=== PATIENT | female | born 1955 | race American Indian/Alaskan Native ===

== ENCOUNTER 2017-01-24 10:40 | Outpatient (CLI) | payer BC ==
--- NOTE | 2017-01-24 12:48 | Mammography Report ---
BILATERAL DIGITAL SCREENING MAMMOGRAM with CAD: 01/24/17 10:40:00 CLINICAL: Routine screening. COMPARISON:10/25/15 FINDINGS: The breasts are almost entirely fatty. No mass, architectural distortion or suspicious calcifications. IMPRESSION: No mammographic evidence of malignancy. BI-RADS CATEGORY: 1 - - Negative RECOMMENDATION: Routine mammographic screening in one year. COMMENT: Patient follow-up letters are generated by our [employer] application.
== END 2017-01-24 10:41 | disposition home or self-care (01) ==
LOC: MAMMO 10:40
PROVIDERS: ATTEND Family Medicine
DX: Z12.31 Encounter for screening mammogram for malignant neoplasm of breast (principal); I10 Essential (primary) hypertension; E78.00 Pure hypercholesterolemia, unspecified; J45.909 Unspecified asthma, uncomplicated; E03.9 Hypothyroidism, unspecified
CPT/HCPCS: 77067; G0202

== ENCOUNTER 2017-05-10 12:30 | Outpatient (CLI) | payer BC | END 2017-05-10 12:31 | disposition home or self-care (01) | LOC: VAS 12:30 | PROVIDERS: ATTEND Podiatrist Foot & Ankle Surgery | DX: M79.661 Pain in right lower leg (principal); M79.662 Pain in left lower leg; M79.89 Other specified soft tissue disorders; I10 Essential (primary) hypertension; E78.00 Pure hypercholesterolemia, unspecified; J45.909 Unspecified asthma, uncomplicated; K21.9 Gastro-esophageal reflux disease without esophagitis; E03.9 Hypothyroidism, unspecified ==

== ENCOUNTER 2018-01-30 10:49 | Outpatient (CLI) | payer BC ==
--- NOTE | 2018-01-30 15:57 | Magnetic Resonance Report ---
MRI BRAIN WITHOUT CONTRAST: 01/30/18 10:49:00 CLINICAL: Seizures. TECHNIQUE: Axial diffusion, T1, T2, gradient echo T2*, coronal and axial FLAIR and sagittal T1 sequences on a 1.5 Toya magnet. FINDINGS: The tonsil and temporal lobe sulci are slightly prominent for age. The ventricles are normal size. No restricted diffusion. Mild medial left temporal lobe parasagittal encephalomalacia with mild gliosis. No other abnormal signal. No mass or mass effect. No hemorrhage, edema or extra-axial collection. Normal pituitary and optic chiasm. The brainstem and cerebellum are normal. Intact vascular flow voids. Normal sinuses. The orbits, and soft tissues are normal. Normal calvarium and skull base. IMPRESSION: 1. Small chronic left LOUIE infarct. 2. No evidence of acute/subacute infarct or hemorrhage. 3. No evidence of mass. 4. Mild frontotemporal cortical atrophy.
== END 2018-01-30 10:50 | disposition home or self-care (01) ==
LOC: MRI 10:49
PROVIDERS: ATTEND Psychiatry & Neurology Neurology
DX: I63.522 Cerebral infarction due to unspecified occlusion or stenosis of left anterior cerebral artery (principal); G31.01 Pick's disease; F02.80 Dementia in other diseases classified elsewhere, unspecified severity, without behavioral disturbance, psychotic disturbance, mood disturbance, and anxiety; E78.00 Pure hypercholesterolemia, unspecified; I10 Essential (primary) hypertension; J45.909 Unspecified asthma, uncomplicated; K21.9 Gastro-esophageal reflux disease without esophagitis; M19.90 Unspecified osteoarthritis, unspecified site; Z90.710 Acquired absence of both cervix and uterus
CPT/HCPCS: 70551

== ENCOUNTER 2018-12-15 10:24 | Outpatient (CLI) | payer BC, MEDICARE ==
--- NOTE | 2018-12-15 14:18 | Magnetic Resonance Report ---
MRI BRAIN 12/15/2018 INDICATION / CLINICAL INFORMATION: MAIN: Code G45.9: Transient cerebral ischemic attack, unspecified./ severe headaches. TECHNIQUE: Multiplanar, multisequence MR images of the brain were obtained. COMPARISON: 01/30/2018 FINDINGS: BRAIN / INTRACRANIAL CONTENTS: Unenhanced and enhanced MR images of the brain were obtained and erich red to the prior exam from 09/29/2018. Again seen is the focal area of encephalomalacia involving a portion of the medial aspect of the left frontal lobe, consistent with old ischemic injury. There is no evidence of acute ischemic injury. There is no evidence of hemorrhage. Ventricles and sulci are within normal limits of size and shape for a patient of this age. On the postcontrast images, there is evidence of a enhancing extra-axial lesion over the anterior rig ht frontal lobe, consistent with meningioma. There appears to be a septation of the dura overlying th is 1 cm enhancing nodule. This lesion was present at the time of the prior exam from 01/31/2020. No other areas of abnormal contrast enhancement are present. There are no abnormal extra-axial fluid collections EXTRACRANIAL: Unremarkable CRANIOCERVICAL JUNCTION: No significant abnormality. VASCULAR FLOW-VOIDS: No significant abnormality. IMPRESSION: No acute abnormality. Signer Name: Jeff Ferreira MD Signed: 12/15/2018 2:13 PM Workstation Name: [id number]
== END 2018-12-15 10:25 | disposition home or self-care (01) ==
LOC: MRI 10:24
PROVIDERS: ATTEND Specialist
DX: G45.9 Transient cerebral ischemic attack, unspecified (principal); G93.41 Metabolic encephalopathy; E78.00 Pure hypercholesterolemia, unspecified; I10 Essential (primary) hypertension; J45.909 Unspecified asthma, uncomplicated; K21.9 Gastro-esophageal reflux disease without esophagitis; Z90.710 Acquired absence of both cervix and uterus
CPT/HCPCS: 70553; A9577

== ENCOUNTER 2019-02-08 01:23 | Emergency (ER) | payer MEDICARE ==
[2019-02-08 02:15] LABS: Basophils # (Auto) 0.2 K/mm3 (0.0-0.1); Basophils % (Auto) 2.2 % (0.0-1.8); Eosinophils # (Auto) 0.1 K/mm3 (0.0-0.4); Eosinophils % (Auto) 1.4 % (0.0-4.3); Hematocrit 43.3 % (30.3-42.9); Hemoglobin 13.9 gm/dl (10.1-14.3); Lymphocytes # (Auto) 2.2 K/mm3 (1.2-5.4); Lymphocytes % (Auto) 27.4 % (13.4-35.0); Mean Corpuscular HGB Conc 32 % (30-34); Mean Corpuscular Volume 84 fl (79-97); Monocytes # (Auto) 0.5 K/mm3 (0.0-0.8); Monocytes % (Auto) 6.1 % (0.0-7.3); Platelet Count 331 K/mm3 (140-440); Red Blood Count 5.17 M/mm3 (3.65-5.03); Red Cell Distribution Width 15.3 % (13.2-15.2)
[2019-02-08 02:20] LABS: Bilirubin,Urine NEG (Negative); Blood,Urine NEG (Negative); Color,Urine Yellow (Yellow); Protein,Urine <15 mg/dL mg/dL (Negative); Urobilinogen,Urine < 2.0 mg/dL (<2.0)
[2019-02-08 02:38] LABS: Alanine Aminotransferase 15 units/L (7-56); BUN/Creatinine Ratio 9; Blood Urea Nitrogen 7 mg/dL (7-17); Calcium 10.2 mg/dL (8.4-10.2); Hemolysis Index 5
[2019-02-08] MEDS ORDERED: ONDANSETRON 4 MG/2 ML INJ IV ONE (03:09)
[2019-02-08] MEDS ORDERED: fentaNYL 100 MCG/2 ML INJ IV ONE ×2 (03:09→04:50)
--- NOTE | 2019-02-08 03:15 | Emergency Department Report ---
HPI - General Chief Complaint: Abdominal Pain Time Seen by Provider: 02/08/19 02:56 - HPI HPI: Room 24 The patient is a 63-year-old female presenting with a chief complaint of headache and right flank pain. 5 days ago with pain in the right flank that was constant and describes as a sharp and dull pressure. Patient states for the past 2-3 days she's also had midepigastric abdominal pain and intermittent headache. Patient denies dysuria or hematuria. Patient missed some loose stool for the past 2-3 days. She states her right flank pain feels similar to an episode she had several years ago related to renal colic. Patient denies history of fever. Patient admits to nausea last night but denies vomiting. Patient currently gives her pain score of 6/10. Patient denies recent antibiotic use Location: [See above] Duration: [See above] Quality: [See above] Severity: [See above] Timing: [See above] Context: [See above] Modifying factors: [See above] Associated signs and symptoms: [see above] ED Past Medical Hx - Past Medical History Previous Medical History?: Yes Hx Hypertension: Yes Hx CVA: Yes Hx Diabetes: Yes Hx GERD: Yes Hx Sickle Cell Disease: (SICKLE CELL TRAIT ONLY) Hx Arthritis: Yes Hx Kidney Stones: Yes Hx Asthma: Yes (MILD/LAST TIME INHALER USED >25 YRS) Additional medical history: Diverticulitis, Hyperthyroid - Surgical History Past Surgical History?: Yes Hx Breast Surgery: Yes (BILATERAL BREAST REDUCTION) Additional Surgical History: Hysterectomy, Lasic procedure on eyes. . SURGERY FOR ENDOMETRIOSIS. CATARACT REMOVED BOTH EYES. Bunionectomy. Left knee surgery 2. LEFT ANKLE SURGERY X 2 - Family History Family history: no significant - Social History Smoking Status: Never Smoker Substance Use Type: Alcohol (occasional) - Medications Home Medications: Home Medications Medication Instructions Recorded Confirmed Last Taken Type Oxycodone HCl/Acetaminophen 1 each PO Q4-6H PRN #20 tablet 11/29/13 09/22/14 05/12/14 Rx [Percocet 10/325 mg] Prednisone [predniSONE 10 mg 10 mg PO .TAPER #1 tab.ds.pk 11/29/13 09/28/14 09/28/14 06:30 Rx (6-Day Pack, 21 Tabs)] Alendronate Sodium [Fosamax] 70 mg PO QWEEK 09/22/14 09/28/14 09/19/14 09:00 History Aspirin EC [Halfprin EC] 81 mg PO QDAY 09/22/14 09/22/14 09/21/14 History Cholecalciferol (Vitamin D3) 5,000 unit PO DAILY 09/22/14 09/28/14 Unknown History [Vitamin D3] Cholecalciferol (Vitamin D3) 50,000 unit PO 2XW 09/22/14 09/28/14 09/21/14 09:00 History [Vitamin D3] Ferrous Sulfate [Iron Supplement 325 mg PO DAILY 09/22/14 09/28/14 09/21/14 09:00 History 325 Mg tab] Gabapentin 300 mg PO TID 09/22/14 09/28/14 09/28/14 06:30 History Glucosam/Adner-Msm1/C/Neftali/Bosw 1 each PO DAILY 09/22/14 09/28/14 09/21/14 09:00 History [Osteo Bi-Flex Caplet] Levocetirizine Dihydrochloride 5 mg PO DAILY 09/22/14 09/28/14 09/27/14 19:30 History [Xyzal] Mirtazapine [Remeron] 30 mg PO DAILY 09/22/14 09/28/14 09/27/14 19:30 History Mometasone Furoate [Nasonex] 2 spray NS QDAY 09/22/14 09/28/14 09/27/14 09:00 History Multivitamin with Folic Acid [One 400 mcg PO DAILY 09/22/14 09/28/14 09/21/14 09:00 History Daily Multivitamin Tablet] Pantoprazole [Protonix TAB] 40 mg PO QDAY 09/22/14 09/28/14 09/21/14 09:00 History Pravastatin [Pravachol] 40 mg PO QHS 09/22/14 09/28/14 09/21/14 09:00 History Verapamil ER [Calan SR] 240 mg PO BIDWM 09/22/14 09/28/14 09/28/14 06:30 History Vitamin E Mixed [Vitamin E] 400 unit PO DAILY 09/22/14 09/28/14 09/21/14 09:00 History Ketorolac [Toradol] 10 mg PO Q6H PRN #20 tablet 04/01/16 Unknown Rx Promethazine [Phenergan TAB] 25 mg PO Q6HR PRN #20 tab 04/01/16 Unknown Rx Promethazine [Phenergan] 25 mg IA Q6HR PRN #5 supp.rect 04/01/16 Unknown Rx Sulfamethoxazole/Trimethoprim 1 each PO BID #14 tablet 04/01/16 Unknown Rx [Bactrim DS TAB] oxyCODONE /ACETAMINOPHEN [Percocet 1 - 2 tab PO Q6HR PRN #20 tablet 04/01/16 Unknown Rx 5/325] Ondansetron [Zofran ODT TAB] 8 mg PO Q8HR #20 tab.rapdis 02/08/19 Unknown Rx oxyCODONE /ACETAMINOPHEN [Percocet 1 - 2 tab PO Q6HR PRN #14 tablet 02/08/19 Unknown Rx 5/325] ED Review of Systems ROS: Stated complaint: ABD/BACK PAIN Other details as noted in HPI Constitutional: denies: fever Eyes: denies: eye pain ENT: denies: throat pain Respiratory: no symptoms reported Cardiovascular: denies: chest pain Endocrine: no symptoms reported Gastrointestinal: abdominal pain, nausea, diarrhea. denies: vomiting Genitourinary: denies: dysuria, hematuria Musculoskeletal: back pain Neurological: headache Physical Exam - Physical Exam Vital Signs: Vital Signs 02/08/19 02/08/19 01:30 02:45 Temperature 97.8 F Pulse Rate 86 90 Respiratory 18 16 Rate Blood Pressure 158/107 Blood Pressure 155/94 [Right] O2 Sat by Pulse 95 94 Oximetry Physical Exam: GENERAL: The patient is well-developed well-nourished female lying on stretcher not appearing to be in acute distress. [] HEENT: Normocephalic. Atraumatic. Extraocular motions are intact. Patient has moist mucous membranes. NECK: Supple. Midline CHEST/LUNGS: Clear to auscultation. There is no respiratory distress noted. HEART/CARDIOVASCULAR: Regular. There is no tachycardia. There is no gallop rub or murmur. ABDOMEN: Abdomen is soft, with mild discomfort to palpation in the midepigastric and bilateral upper quadrants. There is no rebound or guarding. Patient has normal bowel sounds. There is no abdominal distention. SKIN: There is no rash. There is no edema. There is no diaphoresis. NEURO: The patient is awake, alert, and oriented. The patient is cooperative. The patient has no focal neurologic deficits. The patient has normal speech. Cranial nerves II through XII grossly intact, no drift MUSCULOSKELETAL: There is right-sided CVA tenderness. There is no evidence of acute injury. ED Course Vital Signs 02/08/19 02/08/19 01:30 02:45 Temperature 97.8 F Pulse Rate 86 90 Respiratory 18 16 Rate Blood Pressure 158/107 Blood Pressure 155/94 [Right] O2 Sat by Pulse 95 94 Oximetry - Reevaluation(s) Reevaluation #1: 02/08/19 05:53 Patient states she feels improved. Patient's lipase and CT scans were discussed with her. She was given the option of admission to the hospital should her pain be uncontrollable or trial as an outpatient with a prescription for antiemetics and analgesics. Patient will undergo trial as an outpatient GI follow-up. Patient advised to return to the emergency department if her pain is uncontrollable or she develops new symptoms. ED Medical Decision Making - Lab Data Result diagrams: 02/08/19 01:59 02/08/19 01:59 Laboratory Tests 02/08/19 02/08/19 02/08/19 01:59 01:59 Unknown WBC 8.0 RBC 5.17 H Hgb 13.9 Hct 43.3 H MCV 84 MCH 27 L MCHC 32 RDW 15.3 H Plt Count 331 Lymph % (Auto) 27.4 [place] % (Auto) 6.1 Eos % (Auto) 1.4 Baso % (Auto) 2.2 H Lymph # 2.2 [place] # 0.5 Eos # 0.1 Baso # 0.2 H Seg Neutrophils % 62.9 Seg Neutrophils # 5.1 Sodium 140 Potassium 4.1 Chloride 101.5 Carbon Dioxide 28 Anion Gap 15 BUN 7 Creatinine 0.8 Estimated GFR > 60 BUN/Creatinine Ratio 9 Glucose 95 Calcium 10.2 Total Bilirubin 0.20 AST 17 ALT 15 Alkaline Phosphatase 64 Total Protein 7.3 Albumin 4.0 Albumin/Globulin Ratio 1.2 Lipase Urine Color Yellow Urine Turbidity Clear Urine pH 7.0 Ur Specific [place] 1.012 Urine Protein <15 mg/dl Urine Glucose (UA) Neg Urine Ketones Neg Urine Blood Neg Urine Nitrite Neg Urine Bilirubin Neg Urine Urobilinogen < 2.0 Ur Leukocyte Esterase Tr Urine WBC (Auto) 5.0 Urine RBC (Auto) 3.0 U Epithel Cells (Auto) 1.0 02/08/19 Unknown WBC RBC Hgb Hct MCV MCH MCHC RDW Plt Count Lymph % (Auto) [place] % (Auto) Eos % (Auto) Baso % (Auto) Lymph # [place] # Eos # Baso # Seg Neutrophils % Seg Neutrophils # Sodium Potassium Chloride Carbon Dioxide Anion Gap BUN Creatinine Estimated GFR BUN/Creatinine Ratio Glucose Calcium Total Bilirubin AST ALT Alkaline Phosphatase Total Protein Albumin Albumin/Globulin Ratio Lipase 107 H Urine Color Urine Turbidity Urine pH Ur Specific [place] Urine Protein Urine Glucose (UA) Urine Ketones Urine Blood Urine Nitrite Urine Bilirubin Urine Urobilinogen Ur Leukocyte Esterase Urine WBC (Auto) Urine RBC (Auto) U Epithel Cells (Auto) - Radiology Data Radiology results: report reviewed (CT head, CT abdomen and pelvis), image reviewed (CT head, CT abdomen and pelvis) [place] [address] Cat Scan Report Signed Patient: LUIS ELAM MR#: [id number] : 1955 Acct:[id number] Age/Sex: 63 / F ADM Date: 02/08/19 Loc: ED Attending Dr: Ordering Physician: HAYES LEWIS MD Date of Service: 02/08/19 Procedure(s): CT head/brain wo con Accession Number(s): [id number] cc: HAYES LEWIS MD CT HEAD WITHOUT CONTRAST INDICATION / CLINICAL INFORMATION: headache. TECHNIQUE: All CT scans at this location are performed using CT dose reduction for ALARA by means of automated exposure control. COMPARISON: MRI dated 12/15/18 FINDINGS: HEMORRHAGE: None. EXTRA-AXIAL SPACES: Normal in size and morphology for the patient's age. Small right frontal meningioma is unchanged. VENTRICULAR SYSTEM: Normal in size and morphology for the patient's age. CEREBRAL PARENCHYMA: Left periventricular encephalomalacia is unchanged. No acute territorial infarct. MIDLINE SHIFT OR HERNIATION: None. CEREBELLUM / BRAINSTEM: No significant abnormality. ORBITS: Normal as visualized. SOFT TISSUES of HEAD: No significant abnormality. CALVARIUM: No significant abnormality. PARANASAL SINUSES / MASTOID AIR CELLS: Normal as visualized. ADDITIONAL FINDINGS: None. IMPRESSION: 1. No acute intracranial abnormality. 2. Small right frontal meningioma, unchanged. 2. No significant change since prior MRI. Signer Name: Valeria Leon MD Signed: 02/08/2019 5:04 AM Workstation Name: [id number] Transcribed By: DT Dictated By: Sai Leon MD Electronically Authenticated By: Sai Leon MD Signed Date/Time: 02/08/19 0504 DD/ 0500 TD/TT: [facility] [address] [place] [address] Cat Scan Report Signed Patient: LUIS ELAM MR#: [id number] : 1955 Acct:[id number] Age/Sex: 63 / F ADM Date: 02/08/19 Loc: ED Attending Dr: Ordering Physician: HAYES LEWIS MD Date of Service: 02/08/19 Procedure(s): CT abdomen pelvis wo/w con Accession Number(s): [id number] cc: HAYES LEWIS MD CT ABDOMEN AND PELVIS WITHOUT AND WITH CONTRAST INDICATION / CLINICAL INFORMATION: right flank pain, midepigastric pain. TECHNIQUE: Axial CT images were obtained through the abdomen and pelvis before and after 100 mL Omnipaque [address] scans at this location are performed using CT dose reduction for ALARA by means of automated exposure control. COMPARISON: None available. FINDINGS: LOWER CHEST: Linear bibasilar atelectasis. LIVER: Hepatic cyst is unchanged. No acute abnormality. GALLBLADDER: No significant abnormality. BILE D UCTS: No significant abnormality. PANCREAS: No significant abnormality. SPLEEN: No significant abnormality. ADRENALS: No significant abnormality. RIGHT KIDNEY and URETER: Renal cysts are unchanged. No stones. LEFT KIDNEY and URETER: Renal cysts appear unchanged. Nonobstructing stone in the lower pole. No ureteral stone or hydronephrosis. STOMACH and SMALL BOWEL: Small sliding-type hiatal hernia. No small bowel abnormality. COLON: Moderate diffuse colonic diverticulosis without acute inflammation. APPENDIX: Not visualized. PERITONEUM: No free fluid. No free air. No fluid collection. LYMPH NODES: No significant adenopathy. AORTA and ARTERIES: No significant abnormality. IVC and VEINS: No significant abnormality. URINARY BLADDER: No significant abnormality. REPRODUCTIVE ORGANS: Uterus is absent. No significant adnexal abnormality. ADDITIONAL FINDINGS: None. SKELETAL SYSTEM: No significant abnormality. IMPRESSION: 1. No inflammatory process or bowel obstruction. 2. Nonobstructing left renal stone. No ureteral stones or hydronephrosis. 3. Colonic diverticulosis without inflammation. Signer Name: Valeria Leon MD Signed: 02/08/2019 5:35 AM Workstation Name: [id number] Transcribed By: DT Dictated By: Sai Leon MD Electronically Authenticated By: Sai Leon MD Signed Date/Time: 02/08/19534 DD/ 9 TD/TT: - Differential Diagnosis renal colic, headache, AAA, aortic dissection, gastroenteritis, ICH Critical care attestation.: If time is entered above; I have spent that time in minutes in the direct care of this critically ill patient, excluding procedure time. ED Disposition Clinical Impression: Acute abdominal pain Disposition: - TO HOME OR SELFCARE Is pt being admited?: No Does the pt Need Aspirin: No Condition: Stable Instructions: Abdominal Pain (ED) Additional Instructions: Return to the emergency department should you develop worsening symptoms, inability to tolerate food or liquids, high fever or any other concerns Prescriptions: oxyCODONE /ACETAMINOPHEN [Percocet 5/325] 1 - 2 tab PO Q6HR PRN #14 tablet PRN Reason: Pain Ondansetron [Zofran ODT TAB] 8 mg PO Q8HR #20 tab.rapdis Referrals: PRIMARY CARE, [Primary Care Provider] - 3-5 Days OSWALD LAZCANO MD [Staff Physician] - 3-5 Days (Dr. Lazcano is a gastroent erologist. Please follow up with him for further evaluation) Time of Disposition: 06:05
--- NOTE | 2019-02-08 05:08 | Cat Scan Report ---
CT HEAD WITHOUT CONTRAST INDICATION / CLINICAL INFORMATION: headache. TECHNIQUE: All CT scans at this location are performed using CT dose reduction for ALARA by means of automated e xposure control. COMPARISON: MRI dated 12/15/18 FINDINGS: HEMORRHAGE: None. EXTRA-AXIAL SPACES: Normal in size and morphology for the patient's age. Small right frontal meningio ma is unchanged. VENTRICULAR SYSTEM: Normal in size and morphology for the patient's age. CEREBRAL PARENCHYMA: Left periventricular encephalomalacia is unchanged. No acute territorial infarct . MIDLINE SHIFT OR HERNIATION: None. CEREBELLUM / BRAINSTEM: No significant abnormality. ORBITS: Normal as visualized. SOFT TISSUES of HEAD: No significant abnormality. CALVARIUM: No significant abnormality. PARANASAL SINUSES / MASTOID AIR CELLS: Normal as visualized. ADDITIONAL FINDINGS: None. IMPRESSION: 1. No acute intracranial abnormality. 2. Small right frontal meningioma, unchanged. 2. No significant change since prior MRI. Signer Name: Valeria Leon MD Signed: 02/08/2019 5:04 AM Workstation Name: [id number]
--- NOTE | 2019-02-08 05:40 | Cat Scan Report ---
CT ABDOMEN AND PELVIS WITHOUT AND WITH CONTRAST INDICATION / CLINICAL INFORMATION: right flank pain, midepigastric pain. TECHNIQUE: Axial CT images were obtained through the abdomen and pelvis before and after 100 mL Omnipaque [address] scans at this location are performed using CT dose reduction for ALARA by means of automated exposure control. COMPARISON: None available. FINDINGS: LOWER CHEST: Linear bibasilar atelectasis. LIVER: Hepatic cyst is unchanged. No acute abnormality. GALLBLADDER: No significant abnormality. BILE DUCTS: No significant abnormality. PANCREAS: No significant abnormality. SPLEEN: No significant abnormality. ADRENALS: No significant abnormality. RIGHT KIDNEY and URETER: Renal cysts are unchanged. No stones. LEFT KIDNEY and URETER: Renal cysts appear unchanged. Nonobstructing stone in the lower pole. No uret eral stone or hydronephrosis. STOMACH and SMALL BOWEL: Small sliding-type hiatal hernia. No small bowel abnormality. COLON: Moderate diffuse colonic diverticulosis without acute inflammation. APPENDIX: Not visualized. PERITONEUM: No free fluid. No free air. No fluid collection. LYMPH NODES: No significant adenopathy. AORTA and ARTERIES: No significant abnormality. IVC and VEINS: No significant abnormality. URINARY BLADDER: No significant abnormality. REPRODUCTIVE ORGANS: Uterus is absent. No significant adnexal abnormality. ADDITIONAL FINDINGS: None. SKELETAL SYSTEM: No significant abnormality. IMPRESSION: 1. No inflammatory process or bowel obstruction. 2. Nonobstructing left renal stone. No ureteral stones or hydronephrosis. 3. Colonic diverticulosis without inflammation. Signer Name: Valeria Leon MD Signed: 02/08/2019 5:35 AM Workstation Name: [email or web address]
[2019-02-08 06:22] VITALS: BP 146/90
== END 2019-02-08 06:24 | disposition home or self-care (01) ==
LOC: ED 01:23
DX: R10.13 Epigastric pain (principal); R51 Headache; M54.9 Dorsalgia, unspecified; I10 Essential (primary) hypertension; E11.9 Type 2 diabetes mellitus without complications; K21.9 Gastro-esophageal reflux disease without esophagitis; D57.3 Sickle-cell trait; J45.909 Unspecified asthma, uncomplicated; E05.90 Thyrotoxicosis, unspecified without thyrotoxic crisis or storm; Z87.442 Personal history of urinary calculi; Z86.73 Personal history of transient ischemic attack (TIA), and cerebral infarction without residual deficits; Z98.890 Other specified postprocedural states; Z90.710 Acquired absence of both cervix and uterus; Z79.899 Other long term (current) drug therapy; Z88.1 Allergy status to other antibiotic agents
CPT/HCPCS: 36415; 70450; 74178; 80053; 81001; 83690; 85025; 96374; 96375; 96376; 99284; J2405; J3010; Q9967

== ENCOUNTER 2019-03-23 16:09 | Inpatient (IN) | payer MEDICARE ==
[2019-03-23] MEDS ORDERED: SODIUM CHLORIDE 0.9% 1000 ML 1,000 ML IV ONE ×2 (16:46→16:51)
--- NOTE | 2019-03-23 16:50 | Emergency Department Report ---
ED Abdominal Pain HPI - General Chief Complaint: Syncope Stated Complaint: SYNCOPAL EPISODE Time Seen by Provider: 03/23/19 16:44 Source: patient Mode of arrival: Ambulatory Limitations: No Limitations - History of Present Illness Initial Comments: Patient is 64-year-old female with history of hypertension, diabetes, asthma and kidney stone. Patient brought to the emergency room via EMS for syncopal episode. Patient stated the symptoms started 3 days ago with abdominal pain mainly to the epigastric area and to the right flank area associated with nausea and vomiting. Patient denied any diarrhea. Patient stated that she has some chills but no fever. Patient denied any chest pain or shortness of breath. Patient found to have a blood pressure of 90/52. Sepsis protocol initiated. MD Complaint: abdominal pain, flank pain -: days(s) (3) Location: RUQ, R flank Severity scale (0 -10): 0 - Related Data Home Medications Medication Instructions Recorded Confirmed Last Taken Alendronate Sodium [Fosamax] 70 mg PO QWEEK 09/22/14 09/28/14 09/19/14 09:00 Aspirin EC [Halfprin EC] 81 mg PO QDAY 09/22/14 09/22/14 09/21/14 Cholecalciferol (Vitamin D3) 5,000 unit PO DAILY 09/22/14 09/28/14 Unknown [Vitamin D3] Cholecalciferol (Vitamin D3) 50,000 unit PO 2XW 09/22/14 09/28/14 09/21/14 09:00 [Vitamin D3] Ferrous Sulfate [Iron Supplement 325 mg PO DAILY 09/22/14 09/28/14 09/21/14 09:00 325 Mg tab] Gabapentin 300 mg PO TID 09/22/14 09/28/14 09/28/14 06:30 Glucosam/Ander-Msm1/C/Neftali/Bosw 1 each PO DAILY 09/22/14 09/28/14 09/21/14 09:00 [Osteo Bi-Flex Caplet] Levocetirizine Dihydrochloride 5 mg PO DAILY 09/22/14 09/28/14 09/27/14 19:30 [Xyzal] Mirtazapine [Remeron] 30 mg PO DAILY 09/22/14 09/28/14 09/27/14 19:30 Mometasone Furoate [Nasonex] 2 spray NS QDAY 09/22/14 09/28/14 09/27/14 09:00 Multivitamin with Folic Acid [One 400 mcg PO DAILY 09/22/14 09/28/14 09/21/14 09:00 Daily Multivitamin Tablet] Pantoprazole [Protonix TAB] 40 mg PO QDAY 09/22/14 09/28/14 09/21/14 09:00 Pravastatin [Pravachol] 40 mg PO QHS 09/22/14 09/28/14 09/21/14 09:00 Verapamil ER [Calan SR] 240 mg PO BIDWM 09/22/14 09/28/14 09/28/14 06:30 Vitamin E Mixed [Vitamin E] 400 unit PO DAILY 09/22/14 09/28/14 09/21/14 09:00 Previous Rx's Medication Instructions Recorded Last Taken Type Oxycodone HCl/Acetaminophen 1 each PO Q4-6H PRN #20 tablet 11/29/13 05/12/14 Rx [Percocet 10/325 mg] Prednisone [predniSONE 10 mg 10 mg PO .TAPER #1 tab.ds.pk 11/29/13 09/28/14 06:30 Rx (6-Day Pack, 21 Tabs)] Ketorolac [Toradol] 10 mg PO Q6H PRN #20 tablet 04/01/16 Unknown Rx Promethazine [Phenergan TAB] 25 mg PO Q6HR PRN #20 tab 04/01/16 Unknown Rx Promethazine [Phenergan] 25 mg HI Q6HR PRN #5 supp.rect 04/01/16 Unknown Rx Sulfamethoxazole/Trimethoprim 1 each PO BID #14 tablet 04/01/16 Unknown Rx [Bactrim DS TAB] oxyCODONE /ACETAMINOPHEN [Percocet 1 - 2 tab PO Q6HR PRN #20 tablet 04/01/16 Unknown Rx 5/325] Ondansetron [Zofran ODT TAB] 8 mg PO Q8HR #20 tab.rapdis 02/08/19 Unknown Rx oxyCODONE /ACETAMINOPHEN [Percocet 1 - 2 tab PO Q6HR PRN #14 tablet 02/08/19 Unknown Rx 5/325] Allergies Allergy/AdvReac Type Severity Reaction Status Date / Time amoxicillin [Amoxicillin] Allergy Hives Verified 03/31/16 19:02 clarithromycin Allergy Hives Verified 03/31/16 19:02 clindamycin Allergy Hives Verified 03/31/16 19:02 ED Review of Systems ROS: Stated complaint: SYNCOPAL EPISODE Other details as noted in HPI Comment: All other systems reviewed and negative Constitutional: chills. denies: fever Respiratory: cough. denies: shortness of breath, SOB with exertion, wheezing Cardiovascular: palpitations. denies: chest pain Gastrointestinal: abdominal pain, nausea, vomiting. denies: diarrhea, co nstipation, hematemesis, hematochezia Musculoskeletal: denies: back pain ED Past Medical Hx - Past Medical History Previous Medical History?: Yes Hx Hypertension: Yes Hx CVA: Yes Hx Heart Attack/AMI: No Hx Congestive Heart Failure: No Hx Diabetes: Yes Hx Deep Vein Thrombosis: No Hx Pulmonary Embolism: No Hx GERD: Yes Hx Liver Disease: No Hx Renal Disease: No Hx of Cancer: No Hx Sickle Cell Disease: (SICKLE CELL TRAIT ONLY) Hx Arthritis: Yes Hx Headaches / Migraines: No Hx Seizures: No Hx Kidney Stones: Yes Hx Psychiatric Treatment: No Hx Asthma: Yes (MILD/LAST TIME INHALER USED >25 YRS) Hx COPD: No Hx Dementia: No Hx HIV: No Additional medical history: Diverticulitis, Hyperthyroid - Surgical History Past Surgical History?: Yes Hx Coronary Stent: No Hx Open Heart Surgery: No Hx Pacemaker: No Hx Internal Defibrillator: No Hx Cholecystectomy: No Hx Appendectomy: No Hx Breast Surgery: Yes (BILATERAL BREAST REDUCTION) Additional Surgical History: Hysterectomy, Lasic procedure on eyes. . SURGERY FOR ENDOMETRIOSIS. CATARACT REMOVED BOTH EYES. Bunionectomy. Left knee surgery 2. LEFT ANKLE SURGERY X 2 - Social History Smoking Status: Never Smoker Substance Use Type: None - Medications Home Medications: Home Medications Medication Instructions Recorded Confirmed Last Taken Type Oxycodone HCl/Acetaminophen 1 each PO Q4-6H PRN #20 tablet 11/29/13 09/22/14 05/12/14 Rx [Percocet 10/325 mg] Prednisone [predniSONE 10 mg 10 mg PO .TAPER #1 tab.ds.pk 11/29/13 09/28/1409/10 06:30 Rx (6-Day Pack, 21 Tabs)] Alendronate Sodium [Fosamax] 70 mg PO QWEEK 09/22/14 09/28/14 09/19/14 09:00 History Aspirin EC [Halfprin EC] 81 mg PO QDAY 09/22/14 09/22/14 09/21/14 History Cholecalciferol (Vitamin D3) 5,000 unit PO DAILY 09/22/14 09/28/14 Unknown History [Vitamin D3] Cholecalciferol (Vitamin D3) 50,000 unit PO 2XW 09/22/14 09/28/14 09/21/14 09:00 History [Vitamin D3] Ferrous Sulfate [Iron Supplement 325 mg PO DAILY 09/22/14 09/28/14 09/21/14 09 :00 History 325 Mg tab] Gabapentin 300 mg PO TID 09/22/14 09/28/14 09/28/14 06:30 History Glucosam/Ander-Msm1/C/Neftali/Bosw 1 each PO DAILY 09/22/14 09/28/14 09/21/14 09:00 History [Osteo Bi-Flex Caplet] Levocetirizine Dihydrochloride 5 mg PO DAILY 09/22/14 09/28/14 09/27/14 19:30 History [Xyzal] Mirtazapine [Remeron] 30 mg PO DAILY 09/22/14 09/28/14 09/27/14 19:30 History Mometasone Furoate [Nasonex] 2 spray NS QDAY 09/22/14 09/28/14 09/27/14 09:00 History Multivitamin with Folic Acid [One 400 mcg PO DAILY 09/22/14 09/28/14 09/21/14 09:00 History Daily Multivitamin Tablet] Pantoprazole [Protonix TAB] 40 mg PO QDAY 09/22/14 09/28/14 09/21/14 09:00 History Pravastatin [Pravachol] 40 mg PO QHS 09/22/14 09/28/14 09/21/14 09:00 History Verapamil ER [Calan SR] 240 mg PO BIDWM 09/22/14 09/28/14 09/28/14 06:30 History Vitamin E Mixed [Vitamin E] 400 unit PO DAILY 09/22/14 09/28/14 09/21/14 09:00 History Ketorolac [Toradol] 10 mg PO Q6H PRN #20 tablet 04/01/16 Unknown Rx Promethazine [Phenergan TAB] 25 mg PO Q6HR PRN #20 tab 04/01/16 Unknown Rx Promethazine [Phenergan] 25 mg HI Q6HR PRN #5 supp.rect 04/01/16 Unknown Rx Sulfamethoxazole/Trimethoprim 1 each PO BID #14 tablet 04/01/16 Unknown Rx [Bactrim DS TAB] oxyCODONE /ACETAMINOPHEN [Percocet 1 - 2 tab PO Q6HR PRN #20 tablet 04/01/16 Unknown Rx 5/325] Ondansetron [Zofran ODT TAB] 8 mg PO Q8HR #20 tab.rapdis 02/08/19 Unknown Rx oxyCODONE /ACETAMINOPHEN [Percocet 1 - 2 tab PO Q6HR PRN #14 tablet 02/08/19 Unknown Rx 5/325] ED Physical Exam - General Limitations: No Limitations General appearance: alert, in no apparent distress - Head Head exam: Present: atraumatic, normocephalic, normal inspection - Eye Eye exam: Present: normal appearance - ENT ENT exam: Present: mucous membranes dry - Neck Neck exam: Present: normal inspection, full ROM. Absent: tenderness, meningismus, lymphadenopathy, thyromegaly - Respiratory Respiratory exam: Present: normal lung sounds bilaterally - Cardiovascular Cardiovascular Exam: Present: tachycardia - GI/Abdominal GI/Abdominal exam: Present: soft, normal bowel sounds. Absent: distended, tenderness, guarding, rebound, rigid, organomegaly, mass, bruit, pulsatile mass, hernia - Extremities Exam Extremities exam: Present: normal inspection, full ROM, normal capillary refill - Back Exam Back exam: Present: normal inspection, full ROM, CVA tenderness (R). Absent: CVA tenderness (L), muscle spasm, paraspinal tenderness, vertebral tenderness - Neurological Exam Neurological exam: Present: alert, oriented X3, CN II-XII intact - Psychiatric Psychiatric exam: Present: normal mood - Skin Skin exam: Present: warm, intact, normal color ED Course Vital Signs 03/23/19 03/23/19 03/23/19 16:38 19:04 19:25 Temperature 98.4 F 97.6 F Pulse Rate 119 H 87 82 Respiratory 12 19 14 Rate Blood Pressure 96/59 Blood Pressure 96/59 106/67 116/74 [Right] O2 Sat by Pulse 100 96 99 Oximetry 03/23/19 21:49 Temperature Pulse Rate Respiratory 18 Rate Blood Pressure Blood Pressure [Right] O2 Sat by Pulse Oximetry ED Medical Decision Making - Lab Data Result diagrams: 03/23/19 17:48 03/23/19 17:48 - Radiology Data Radiology results: report reviewed - Medical Decision Making Patient is 64-year-old female with history of hypertension, diabetes, asthma and kidney stone. Patient brought to the emergency room via EMS for syncopal episode. Patient stated the symptoms started 3 days ago with abdominal pain mainly to the epigastric area and to the right flank area associated with nausea and vomiting. Patient denied any diarrhea. Patient stated that she has some chills but no fever. Patient denied any chest pain or shortness of breath. Labs reviewed and showed elevated white blood cells. CT abdomen and pelvis showed hemorrhagic pancreatitis. Patient received 3 L of normal saline with significant improvement in blood pressure and lactic acid. I discussed the patient with Dr. Owens, he agreed to admit the patient to medical service for further management. Critical Care Time: Yes Critical care time in (mins) excluding proc time.: 30 Critical care attestation.: If time is entered above; I have spent that time in minutes in the direct care of this critically ill patient, excluding procedure time. ED Disposition Clinical Impression: Abdominal pain, Sepsis, Acute hemorrhagic pancreatitis Disposition: OP ADMIT IP TO THIS HOSP Is pt being admited?: Yes Condition: Stable
[2019-03-23] MEDS ORDERED: SODIUM CHLORIDE 0.9% 500 ML 500 ML IV ONE (16:51)
[2019-03-23 18:24] LABS: Albumin 3.6 g/dL (3.9-5)
[2019-03-23 18:32] LABS: Basophils % (Auto) 0.2 % (0.0-1.8); Hematocrit 39.3 % (30.3-42.9); Hemoglobin 12.3 gm/dl (10.1-14.3); Lymphocytes # (Auto) 1.1 K/mm3 (1.2-5.4); Lymphocytes % (Auto) 8.2 % (13.4-35.0); Mean Corpuscular HGB Conc 31 % (30-34); Mean Corpuscular Volume 86 fl (79-97); Monocytes # (Auto) 1.1 K/mm3 (0.0-0.8); Monocytes % (Auto) 7.7 % (0.0-7.3); Platelet Count 290 K/mm3 (140-440); Red Cell Distribution Width 15.6 % (13.2-15.2)
--- NOTE | 2019-03-23 20:27 | Cat Scan Report ---
CT of the abdomen and pelvis with contrast INDICATION: Left flank pain COMPARISON: 02/08/2019 FINDINGS: there is slight right basilar atelectasis or scarring. Hepatic cyst is unchanged. There is minimal ascites in the upper abdomen. The pancreas, adrenal glands and kidneys are unchanged with robin ateral renal cysts again seen in the left lower pole stone unchanged. There is no left hydronephrosis or perinephric edema. Pancreatic body and tail are normal. No definite duodenal wall thickening or e dat. There is high density fluid surrounding the head of the pancreas extending into the anterior pa rarenal space. This is the appearance of hemorrhage presumably from pancreatitis the exact source is uncertain. There is no aneurysm seen. Small gallstones are seen without cholecystitis. No biliary linda e dilation. Pancreatic duct is of normal size and unchanged. No abscess or focal fluid collection. CT of the pelvis shows extension of the fluid/hemorrhage into the pelvis but there is a small amount of cul-de-sac fluid. There is sigmoid diverticulosis without diverticulitis. No bowel obstruction is seen. No significant skeletal lesion. IMPRESSION: There appears to be hemorrhagic pancreatitis involving the head of the pancreas as descri bed. Automated exposure control was utilized to diminish radiation dose. Signer Name: Jigar Reveles MD Signed: 03/23/2019 8:22 PM Workstation Name: [id number]
[2019-03-23] MEDS ORDERED: MORPHINE 2 MG/1 ML INJ IV ONE (21:11)
[2019-03-23] MEDS ORDERED: ONDANSETRON 4 MG/2 ML INJ IV ONE (21:12)
[2019-03-23] MEDS ORDERED: SODIUM CHLORIDE 0.9% 500 ML 500 ML ONE (21:17)
--- NOTE | 2019-03-23 21:29 | XRay Report ---
CHEST 1 VIEW INDICATION / CLINICAL INFORMATION: sepsis. COMPARISON: 02/08/2015 FINDINGS: SUPPORT DEVICES: None. HEART / MEDIASTINUM: No significant abnormality. LUNGS / PLEURA: No significant pulmonary or pleural abnormality. No pneumothorax. ADDITIONAL FINDINGS: No significant additional findings. IMPRESSION: 1. No significant change Signer Name: Jigar Reveles MD Signed: 03/23/2019 9:25 PM Workstation Name: [id number]
--- NOTE | 2019-03-24 01:56 | History and Physical Report ---
History of Present Illness Date of admission: 03/23/19 22:47 Chief complaint: Abdominal pain History of present illness: Patient is a 64-year-old female who presents to the emergency room today complaining of abdominal pain. Abdominal pain has been ongoing for about 3 weeks. She has been having intermittent nausea and vomiting over the past 3 weeks. Abdominal pain is said to be made abdomen radiating towards the back. She indicates that she has kidney stones and thought the abdominal pain was related to a kidney stones. She denies any fever no chills, no diarrhea, no hematuria or dysuria. Upon arrival in the emergency room, patient had a blood pressure with systolic in 90s and diastolic in the 50s. Her work-up in the emergency room included CT of the abdomen indicates hemorrh agic pancreatitis. She also had elevated lactic acid. Patient was placed on IV fluid with improvement in the lactic acid level and she was also placed on analgesic medication. Past History Past Medical History: diabetes, hypertension, hyperlipidemia, hypothyroidism Past Surgical History: , hysterectomy, Other (Left knee surgery, cataract surgery, bunionectomy, breast reduction,) Social history: no significant social history Family history: cancer (Mother had breast cancer), diabetes, hypertension Medications and Allergies Allergies Allergy/AdvReac Type Severity Reaction Status Date / Time amoxicillin [Amoxicillin] Allergy Hives Verified 03/31/16 19:02 clarithromycin Allergy Hives Verified 03/31/16 19:02 clindamycin Allergy Hives Verified 03/31/16 19:02 Home Medications Medication Instructions Recorded Confirmed Last Taken Type Gabapentin 300 mg PO TID 09/22/14 03/24/19 09/28/14 06:30 History Levocetirizine Dihydrochloride 5 mg PO DAILY 09/22/14 03/24/19 09/27/14 19:30 History [Xyzal] Pantoprazole [Protonix TAB] 40 mg PO QDAY 09/22/14 03/24/19 09/21/14 09:00 History Pravastatin [Pravachol] 40 mg PO QHS 09/22/14 03/24/19 09/21/14 09:00 History Verapamil ER [Calan SR] 240 mg PO BIDWM 09/22/14 03/24/19 09/28/14 06:30 History Ondansetron [Zofran ODT TAB] 8 mg PO Q8HR #20 tab.rapdis 02/08/19 03/24/19 Unknown Rx Arginine [l-Arginine] 500 mg PO BID 03/24/19 03/24/19 Unknown History Azelastine/Fluticasone [Dymista 1 gm NS BID 03/24/19 03/24/19 Unknown History Nasal [place]] Cholecalciferol (Vitamin D3) 2,000 unit PO QDAY 03/24/19 03/24/19 Unknown History [Vitamin D3 2,000 UNIT CAP] Clopidogrel [Plavix] 75 mg PO QDAY 03/24/19 03/24/19 Unknown History Escitalopram [Lexapro] 20 mg PO DAILY MDD 1 1/2 03/24/19 03/24/19 Unknown His tory Fluticasone/Salmeterol [Advair 1 puff IH BID 03/24/19 03/24/19 Unknown History Diskus 250-50 mcg] Glucosam/Ander-Msm1/C/Neftali/Bosw 1 each PO BID 03/24/19 03/24/19 Unknown History [Osteo Bi-Flex Caplet] Loratadine 10 mg PO QDAY 03/24/19 03/24/19 Unknown History Prednisolone Acetate/Pf 5 ml OU BID 03/24/19 03/24/19 Unknown History [Prednisolone Acet 1% Eye Drop] clonazePAM 0.5 mg PO QDAY 03/24/19 03/24/19 Unknown History metFORMIN [Glucophage] 500 mg PO TID 03/24/19 03/24/19 Unknown History traZODone [Desyrel] 50 mg PO QHS 03/24/19 03/24/19 Unknown History Active Meds: Active Medications Acetaminophen (Tylenol) 650 mg PO Q4H PRN PRN Reason: Pain MILD(1-3)/Fever >100.5/AKERS Sodium Chloride (Nacl 0.9% 1000 Ml) 1,000 mls @ 150 mls/hr IV DIRECT LEA Levofloxacin/Dextrose (Levaquin 750mg/150ml) 750 mg in 150 mls @ 100 mls/hr IV Q24H LEA; Protocol Morphine Sulfate (Morphine) 2 mg IV Q4H PRN PRN Reason: Pain, Moderate (4-6) Ondansetron HCl (Zofran) 4 mg IV Q8H PRN PRN Reason: Nausea And Vomiting Sodium Chloride (Sodium Chloride Flush Syringe 10 Ml) 10 ml IV BID LEA Sodium Chloride (Sodium Chloride Flush Syringe 10 Ml) 10 ml IV PRN PRN PRN Reason: LINE FLUSH Review of Systems Gastrointestinal: abdominal pain, nausea, vomiting Exam - Constitutional Vitals: Temp Pulse Resp BP Pulse Ox 97.4 F L 90 18 139/80 92 03/24/19 01:46 03/24/19 00:15 03/24/19 01:46 03/24/19 01:25 03/24/19 01:46 General appearance: Present: no acute distress, well-nourished - EENT Eyes: Present: PERRL, EOM intact ENT: hearing intact, clear oral mucosa, dentition normal - Neck Neck: Present: supple, normal ROM - Respiratory Respiratory effort: normal Respiratory: bilateral: CTA - Cardiovascular Rhythm: regular Heart Sounds: Present: S1 & S2 - Extremities Extremities: no ischemia, pulses intact, No edema Peripheral Pulses: within normal limits - Abdominal General gastrointestinal: Present: soft, tender (Tenderness in the epigastric and right upper quadrant), distended - Integumentary Integumentary: Present: clear, warm, dry - Musculoskeletal Musculoskeletal: strength equal bilaterally - Psychiatric Psychiatric: appropriate mood/affect, intact judgment & insight - Neurologic Neurologic: CNII-XII intact, moves all extremities Results - Labs CBC & Chem 7: 03/24/19 03:32 03/24/19 03:32 Labs: Abnormal lab results 03/23/19 03/23/19 03/23/19 Range/Units 17:48 17:48 17:48 WBC 13.6 H (4.5-11.0) K/mm3 MCH 27 L (28-32) pg RDW 15.6 H (13.2-15.2) % Lymph % (Auto) 8.2 L (13.4-35.0) % [place] % (Auto) 7.7 H (0.0-7.3) % Lymph # 1.1 L (1.2-5.4) K/mm3 [place] # 1.1 H (0.0-0.8) K/mm3 Seg Neutrophils % 83.9 H (40.0-70.0) % Seg Neutrophils # 11.4 H (1.8-7.7) K/mm3 Glucose 122 H (65-100) mg/dL Lactic Acid 2.80 H* (0.7-2.0) mmol/L Total Protein 5.9 L (6.3-8.2) g/dL Albumin 3.6 L (3.9-5) g/dL 03/23/19 Range/Units 18:53 WBC (4.5-11.0) K/mm3 MCH (28-32) pg RDW (13.2-15.2) % Lymph % (Auto) (13.4-35.0) % [place] % (Auto) (0.0-7.3) % Lymph # (1.2-5.4) K/mm3 [place] # (0.0-0.8) K/mm3 Seg Neutrophils % (40.0-70.0) % Seg Neutrophils # (1.8-7.7) K/mm3 Glucose (65-100) mg/dL Lactic Acid 4.30 H* (0.7-2.0) mmol/L Total Protein (6.3-8.2) g/dL Albumin (3.9-5) g/dL Assessment and Plan - Patient Problems (1) Acute hemorrhagic pancreatitis Current Visit: Yes Status: Acute Plan to address problem: Patient placed n.p.o. and also placed on IV fluid. Will place patient on analgesic medication. We will monitor lipase levels. We will place a consult to gastroenterology for further evaluation and recom mendation. (2) Sepsis Current Visit: Yes Status: Acute Plan to address problem: We will continue patient on IV fluid. She has also been placed on empiric IV antibiotics. We will monitor lactic acid level. (3) Abdominal pain Current Visit: Yes Status: Acute Plan to address problem: Probably secondary to the hemorrhagic pancreatitis. We will continue on analgesic medication. (4) DVT prophylaxis Current Visit: Yes Status: Acute Plan to address problem: Patient placed on sequential compression device. (5) Full code status Current Visit: Yes Status: Acute
[2019-03-24 02:01] LABS: Bacteria,Urine 1+ /HPF (Negative); Bilirubin,Urine NEG (Negative); Blood,Urine NEG (Negative); Color,Urine Yellow (Yellow); Mucus,Urine FEW /HPF; Urobilinogen,Urine < 2.0 mg/dL (<2.0)
[2019-03-24] MEDS: SODIUM CHLORIDE 0.9% 1000 ML 1,000 ML IV SCH ×2 (02:14→08:30)
[2019-03-24] MEDS: MORPHINE 2 MG/1 ML INJ IV PRN ×2 (02:32→06:36)
[2019-03-24 04:24] LABS: Basophils % (Auto) 0.3 % (0.0-1.8); Eosinophils % (Auto) 0.2 % (0.0-4.3); Hematocrit 29.9 % (30.3-42.9); Hemoglobin 9.5 gm/dl (10.1-14.3); Lymphocytes # (Auto) 1.6 K/mm3 (1.2-5.4); Lymphocytes % (Auto) 12.8 % (13.4-35.0); Mean Corpuscular HGB Conc 32 % (30-34); Mean Corpuscular Volume 84 fl (79-97); Monocytes # (Auto) 0.8 K/mm3 (0.0-0.8); Monocytes % (Auto) 6.5 % (0.0-7.3); Platelet Count 249 K/mm3 (140-440); Red Blood Count 3.55 M/mm3 (3.65-5.03); Red Cell Distribution Width 15.5 % (13.2-15.2)
[2019-03-24 04:32] LABS: INR 1.03 (0.87-1.13)
[2019-03-24 04:33] LABS: Partial Thromboplastin Time 26.1 Sec. (24.2-36.6)
[2019-03-24 04:44] LABS: BUN/Creatinine Ratio 13; Blood Urea Nitrogen 13 mg/dL (7-17); Calcium 8.9 mg/dL (8.4-10.2); Hemolysis Index 10
[2019-03-24] MEDS: ONDANSETRON 4 MG/2 ML INJ IV PRN (06:36)
[2019-03-24] MEDS: D5NS W/KCL 20 MEQ 20 MEQ/1,000 ML BAG IV SCH ×2 (09:56→17:30)
--- NOTE | 2019-03-24 13:25 | Event Note ---
Date: 03/31/19 Patient seen and examined Admitted with abdominal pain nausea and vomiting CT abdomen and pelvis showed acute hemorrhagic pancreatitis Continue to monitor clinically, continue IV fluids, if tolerates will start clear liquid diet from dinner GI consulted - we'll follow recommendation
[2019-03-24] MEDS: HYDROmorphone 1 MG/1 ML INJ IV PRN (13:44)
--- NOTE | 2019-03-24 16:01 | Gastroenterology Consultation ---
History of Present Illness - Reason for Consult Consult date: 03/24/19 pancreatitis Requesting physician: KESHAWN CHRISTY - History of Present Illness This is a 64 yo female with pmh of HTN, DM, anxiety, and kidney stones admitted for abdominal pain and pancreatitis. Patient was seen in 01/2019 in the ED for similar complaints of abdominal pain and nausea. CT scan at that time showed normal pancreas and nonobstructing kidney stones. Lipase minimally elevated. She followed up with Dr. Lazcano in GI clinic and had EGD in 02/2019. It showed irregular z-line, hiatal hernia, and gastritis. Biopsies were negative for H. pylori. Her pain improved but recurred on Saturday evening with similar characteristics with mid abdominal pain radiating to her back with nausea and vomiting. This time the pain was more severe. Work up in the ED showed signs of hemorrhagic pancreatitis in the pancreatic head on the CT and normal lipase. This afternoon, she feels somewhat better with pain controlled with pain medication. No nausea. She denies any diarrhea, blood in the stool, constipation. No recent alcohol use. No family hx of pancreatic conditions. medication list reviewed. Past History Past Medical History: diabetes, hypertension, hyperlipidemia, hypothyroidism Past Surgical History: , hysterectomy, Other (Left knee surgery, cataract surgery, bunionectomy, breast reduction,) Social history: no significant social history Family history: cancer (Mother had breast cancer), diabetes, hypertension Medications and Allergies Allergies Allergy/AdvReac Type Severity Reaction Status Date / Time amoxicillin [Amoxicillin] Allergy Hives Verified 03/31/16 19:02 clarithromycin Allergy Hives Verified 03/31/16 19:02 clindamycin Allergy Hives Verified 03/31/16 19:02 Home Medications Medication Instructions Recorded Confirmed Last Taken Type Gabapentin 300 mg PO TID 09/22/14 03/24/19 09/28/14 06:30 History Levocetirizine Dihydrochloride 5 mg PO DAILY 09/22/14 03/24/19 09/27/14 19:30 History [Xyzal] Pantoprazole [Protonix TAB] 40 mg PO QDAY 09/22/14 03/24/19 09/21/14 09:00 History Pravastatin [Pravachol] 40 mg PO QHS 09/22/14 03/24/19 09/21/14 09:00 History Verapamil ER [Calan SR] 240 mg PO BIDWM 09/22/14 03/24/19 09/28/14 06:30 History Ondansetron [Zofran ODT TAB] 8 mg PO Q8HR #20 tab.rapdis 02/08/19 03/24/19 Unknown Rx Arginine [l-Arginine] 500 mg PO BID 03/24/19 03/24/19 Unknown History Azelastine/Fluticasone [Dymista 1 gm NS BID 03/24/19 03/24/19 Unknown History Nasal Stopover] Cholecalciferol (Vitamin D3) 2,000 unit PO QDAY 03/24/19 03/24/19 Unknown History [Vitamin D3 2,000 UNIT CAP] Clopidogrel [Plavix] 75 mg PO QDAY 03/24/19 03/24/19 Unknown History Escitalopram [Lexapro] 20 mg PO DAILY MDD 1 1/2 03/24/19 03/24/19 Unknown History Fluticasone/Salmeterol [Advair 1 puff IH BID 03/24/19 03/24/19 Unknown History Diskus 250-50 mcg] Glucosam/Ander-Msm1/C/Neftali/Bosw 1 each PO BID 03/24/19 03/24/19 Unknown History [Osteo Bi-Flex Caplet] Loratadine 10 mg PO QDAY 03/24/19 03/24/19 Unknown History Polyethylene Glycol 3350 [Miralax 17 gm PO QDAY 03/24/19 03/24/19 Unknown History 3350] Prednisolone Acetate/Pf 5 ml OU BID 03/24/19 03/24/19 Unknown History [Prednisolone Acet 1% Eye Drop] clonazePAM 0.5 mg PO QDAY 03/24/19 03/24/19 Unknown History metFORMIN [Glucophage] 500 mg PO TID 03/24/19 03/24/19 Unknown History traZODone [Desyrel] 50 mg PO QHS 03/24/19 03/24/19 Unknown History Active Meds: Active Medications Acetaminophen (Tylenol) 650 mg PO Q4H PRN PRN Reason: Pain MILD(1-3)/Fever >100.5/AKERS Hydromorphone HCl (Dilaudid) 1 mg IV Q4H PRN PRN Reason: Pain , Severe (7-10) Last Admin: 03/24/19 13:44 Dose: 1 mg Documented by: Levofloxacin/Dextrose (Levaquin 750mg/150ml) 750 mg in 150 mls @ 100 mls/hr IV Q24H LEA; Protocol Potassium Chloride/Dextrose/Sod Cl (D5w/Ns W/Kcl 20meq) 20 meq in 1,000 mls @ 150 mls/hr IV DIRECT LEA Last Admin: 03/24/19 09:56 Dose: 150 mls/hr Documented by: Ondansetron HCl (Zofran) 4 mg IV Q8H PRN PRN Reason: Nausea And Vomiting Last Admin: 03/24/19 06:36 Dose: 4 mg Documented by: Sodium Chloride (Sodium Chloride Flush Syringe 10 Ml) 10 ml IV BID LEA Last Admin: 03/24/19 09:56 Dose: 10 ml Documented by: Sodium Chloride (Sodium Chloride Flush Syringe 10 Ml) 10 ml IV PRN PRN PRN Reason: LINE FLUSH Review of Systems - Review of Systems All systems: negative Cardiovascular: no chest pain Respiratory: no cough, no shortness of breath Gastrointestinal: abdominal pain, nausea, vomiting, no diarrhea, no constipation, no melena, no hematochezia Psychiatric: anxiety Exam - Constitutional Vital Signs: Temp Pulse Resp BP Pulse Ox 97.9 F 73 18 153/78 93 03/24/19 13:23 03/24/19 13:23 03/24/19 13:44 03/24/19 13:23 03/24/19 13:23 General appearance: no acute distress, well-nourished - EENT Eyes: EOM intact ENT: hearing intact - Neck Neck: supple - Respiratory Respiratory effort: normal - Cardiovascular Rhythm: regular Heart Sounds: Present: S1 & S2 - Gastrointestinal General gastrointestinal: Present: soft, tender, non-distended, normal bowel sounds - Neurologic Neurological: alert and oriented x3 - Psychiatric Psychiatric: appropriate mood/affect - Labs CBC & Chem 7: 03/24/19 03:32 03/24/19 03:32 Lab Results: Laboratory Results - last 24 hr 03/23/19 03/23/19 03/23/19 17:48 17:48 17:48 WBC 13.6 H RBC 4.60 Hgb 12.3 Hct 39.3 MCV 86 MCH 27 L MCHC 31 RDW 15.6 H Plt Count 290 Lymph % (Auto) 8.2 L Branch % (Auto) 7.7 H Eos % (Auto) 0.0 Baso % (Auto) 0.2 Lymph # 1.1 L Branch # 1.1 H Eos # 0.0 Baso # 0.0 Seg Neutrophils % 83.9 H Seg Neutrophils # 11.4 H PT INR APTT Sodium 144 Potassium 3.9 Chloride 106.1 Carbon Dioxide 24 Anion Gap 18 BUN 14 Creatinine 1.2 Estimated GFR 54 BUN/Creatinine Ratio 12 Glucose 122 H POC Glucose Lactic Acid 2.80 H* Calcium 10.0 Total Bilirubin 0.20 AST 15 ALT 21 Alkaline Phosphatase 56 Total Protein 5.9 L Albumin 3.6 L Albumin/Globulin Ratio 1.6 Lipase Urine Color Urine Turbidity Urine pH Ur Specific [place] Urine Protein Urine Glucose (UA) Urine Ketones Urine Blood Urine Nitrite Urine Bilirubin Urine Urobilinogen Ur Leukocyte Esterase Urine WBC (Auto) Urine RBC (Auto) U Epithel Cells (Auto) Urine Bacteria (Auto) Urine Mucus 03/23/19 03/23/19 03/23/19 18:53 20:03 20:03 WBC RBC Hgb Hct MCV MCH MCHC RDW Plt Count Lymph % (Auto) Branch % (Auto) Eos % (Auto) Baso % (Auto) Lymph # Branch # Eos # Baso # Seg Neutrophils % Seg Neutrophils # PT INR APTT Sodium Potassium Chloride Carbon Dioxide Anion Gap BUN Creatinine Estimated GFR BUN/Creatinine Ratio Glucose POC Glucose Lactic Acid 4.30 H* 1.90 1.80 Calcium Total Bilirubin AST ALT Alkaline Phosphatase Total Protein Albumin Albumin/Globulin Ratio Lipase Urine Color Urine Turbidity Urine pH Ur Specific [place] Urine Protein Urine Glucose (UA) Urine Ketones Urine Blood Urine Nitrite Urine Bilirubin Urine Urobilinogen Ur Leukocyte Esterase Urine WBC (Auto) Urine RBC (Auto) U Epithel Cells (Auto) Urine Bacteria (Auto) Urine Mucus 03/23/19 03/24/19 03/24/19 21:25 01:40 03:32 WBC 12.3 H RBC 3.55 L Hgb 9.5 L Hct 29.9 L D MCV 84 MCH 27 L MCHC 32 RDW 15.5 H Plt Count 249 Lymph % (Auto) 12.8 L Branch % (Auto) 6.5 Eos % (Auto) 0.2 Baso % (Auto) 0.3 Lymph # 1.6 Branch # 0.8 Eos # 0.0 Baso # 0.0 Seg Neutrophils % 80.2 H Seg Neutrophils # 9.9 H PT INR APTT Sodium Potassium Chloride Carbon Dioxide Anion Gap BUN Creatinine Estimated GFR BUN/Creatinine Ratio Glucose POC Glucose Lactic Acid Calcium Total Bilirubin AST ALT Alkaline Phosphatase Total Protein Albumin Albumin/Globulin Ratio Lipase 29 Urine Color Yellow Urine Turbidity Slightly-cloudy Urine pH 5.0 Ur Specific [place] 1.040 H Urine Protein 30 mg/dl Urine Glucose (UA) Neg Urine Ketones Neg Urine Blood Neg Urine Nitrite Neg Urine Bilirubin Neg Urine Urobilinogen < 2.0 Ur Leukocyte Esterase Lg Urine WBC (Auto) 76.0 H Urine RBC (Auto) 5.0 U Epithel Cells (Auto) 7.0 Urine Bacteria (Auto) 1+ Urine Mucus Few 03/24/19 03/24/19 03/24/19 03:32 03:32 07:45 WBC RBC Hgb Hct MCV MCH MCHC RDW Plt Count Lymph % (Auto) Branch % (Auto) Eos % (Auto) Baso % (Auto) Lymph # Branch # Eos # Baso # Seg Neutrophils % Seg Neutrophils # PT 13.4 INR 1.03 APTT 26.1 Sodium 146 H Potassium 4.1 Chloride 112.0 H Carbon Dioxide 24 Anion Gap 14 BUN 13 Creatinine 1.0 Estimated GFR > 60 BUN/Creatinine Ratio 13 Glucose 107 H POC Glucose 105 Lactic Acid Calcium 8.9 Total Bilirubin AST ALT Alkaline Phosphatase Total Protein Albumin Albumin/Globulin Ratio Lipase 23 Urine Color Urine Turbidity Urine pH Ur Specific [place] Urine Protein Urine Glucose (UA) Urine Ketones Urine Blood Urine Nitrite Urine Bilirubin Urine Urobilinogen Ur Leukocyte Esterase Urine WBC (Auto) Urine RBC (Auto) U Epithel Cells (Auto) Urine Bacteria (Auto) Urine Mucus 03/24/19 11:47 WBC RBC Hgb Hct MCV MCH MCHC RDW Plt Count Lymph % (Auto) Branch % (Auto) Eos % (Auto) Baso % (Auto) Lymph # Branch # Eos # Baso # Seg Neutrophils % Seg Neutrophils # PT INR APTT Sodium Potassium Chloride Carbon Dioxide Anion Gap BUN Creatinine Estimated GFR BUN/Creatinine Ratio Glucose POC Glucose 112 H Lactic Acid Calcium Total Bilirubin AST ALT Alkaline Phosphatase Total Protein Albumin Albumin/Globulin Ratio Lipase Urine Color Urine Turbidity Urine pH Ur Specific [place] Urine Protein Urine Glucose (UA) Urine Ketones Urine Blood Urine Nitrite Urine Bilirubin Urine Urobilinogen Ur Leukocyte Esterase Urine WBC (Auto) Urine RBC (Auto) U Epithel Cells (Auto) Urine Bacteria (Auto) Urine Mucus - Imaging CT Scan: report reviewed Assessment and Plan This is a 64 yo female with pmh of HTN, DM, anxiety, and kidney stones admitted for abdominal pain and pancreatitis. # Abdominal pain/nausea/vomiting # CT findings suggestive of hemorrhagic pancreatitis of pancreatic head. - unclear etiology for pancreatitis. - no alcohol hx, no gallstones and normal liver enzymes. - currently HD stable with abdominal pain controlled on pain medication. Rec - continue with IV fluids. - can do a trial of clear liquids. back off if worsening pain. - Pain control. - antiemetics. - will check Igg4 and triglyceride levels.
[2019-03-24 16:41] LABS: Hematocrit 30.7 % (30.3-42.9); Hemoglobin 9.8 gm/dl (10.1-14.3); Mean Corpuscular HGB Conc 32 % (30-34); Mean Corpuscular Volume 85 fl (79-97); Platelet Count 255 K/mm3 (140-440); Red Cell Distribution Width 15.9 % (13.2-15.2)
[2019-03-24] MEDS: hydrALAZINE 20 MG/1 ML INJ IV PRN (22:05)
[2019-03-24] MEDS: traZODone 50 MG TAB PO SCH (23:22)
[2019-03-25 04:27] LABS: Basophils # (Auto) 0.1 K/mm3 (0.0-0.1); Basophils % (Auto) 0.8 % (0.0-1.8); Eosinophils # (Auto) 0.1 K/mm3 (0.0-0.4); Eosinophils % (Auto) 0.6 % (0.0-4.3); Hematocrit 30.3 % (30.3-42.9); Hemoglobin 9.7 gm/dl (10.1-14.3); Lymphocytes # (Auto) 1.5 K/mm3 (1.2-5.4); Lymphocytes % (Auto) 12.9 % (13.4-35.0); Mean Corpuscular HGB Conc 32 % (30-34); Mean Corpuscular Volume 85 fl (79-97); Monocytes # (Auto) 0.8 K/mm3 (0.0-0.8); Monocytes % (Auto) 7.1 % (0.0-7.3); Platelet Count 258 K/mm3 (140-440); Red Blood Count 3.59 M/mm3 (3.65-5.03); Red Cell Distribution Width 15.9 % (13.2-15.2)
[2019-03-25 04:37] LABS: BUN/Creatinine Ratio 10; Blood Urea Nitrogen 6 mg/dL (7-17); Hemolysis Index 140
[2019-03-25] MEDS: hydrALAZINE 20 MG/1 ML INJ IV PRN (07:35)
[2019-03-25] MEDS: ONDANSETRON 4 MG/2 ML INJ IV PRN (07:38)
[2019-03-25] MEDS: HYDROmorphone 1 MG/1 ML INJ IV PRN ×2 (07:43→14:40)
[2019-03-25] MEDS: PANTOPRAZOLE 40 MG TAB PO SCH (09:08)
[2019-03-25] MEDS: D5NS W/KCL 20 MEQ 20 MEQ/1,000 ML BAG IV SCH (10:14)
[2019-03-25] MEDS: ACETAMINOPHEN 325 MG TAB PO PRN ×2 (12:32→20:22)
--- NOTE | 2019-03-25 13:35 | Progress Note ---
Assessment and Plan /Acute hemorrhagic pancreatitis cont on IV fluid. as needed analgesic medication. normal lipase levels. will get abdominal US consulted GI, cont clear liquid diet /SIRS with organ dysfunction - hemorrhagic pancreatitis We will continue patient on IV fluid. She has also been placed on empiric IV antibiotics till cx negative. We will monitor lactic acid level. /Abdominal pain Probably secondary to the hemorrhagic pancreatitis. We will continue on analgesic medication. /Obesity, diet and exercise recommendation when clinically stable / DVT prophylaxis Patient placed on sequential compression device. / Full code status Subjective Date of service: 03/25/19 Interval history: Patient seen and examined Continue c/o abdominal pain denies any alcohol abuse Not tolerating clear liquid discussed with GI, RN and with pt at bedside Objective - Constitutional Vitals: Vital Signs - 12hr 03/25/19 03/25/19 03/25/19 02:09 07:25 07:35 Temperature 98.8 F 98.6 F Pulse Rate 101 H 95 H 95 H Pulse Rate [ From Monitor] Respiratory 18 18 Rate Blood Pressure 162/85 162/94 162/94 O2 Sat by Pulse 96 97 Oximetry 03/25/19 03/25/19 09:56 10:50 Temperature Pulse Rate 92 H Pulse Rate [ 92 H From Monitor] Respiratory 18 Rate Blood Pressure O2 Sat by Pulse 97 Oximetry General appearance: Present: mild distress, obese - EENT Eyes: PERRL, EOM intact ENT: hearing intact, clear oral mucosa Ears: bilateral: normal - Neck Neck: supple, normal ROM - Respiratory Respiratory effort: normal Respiratory: bilateral: CTA - Cardiovascular Rhythm: regular Heart Sounds: Present: S1 & S2. Absent: gallop, rub Extremities: pulses intact, No edema, normal color, Full ROM - Gastrointestinal General gastrointestinal: Present: soft, tender (epigastric), non-distended, normal bowel sounds - Integumentary Integumentary: clear, warm, dry - Musculoskeletal Musculoskeletal: 1, strength equal bilaterally - Neurologic Neurologic: moves all extremities - Psychiatric Psychiatric: memory intact, appropriate mood/affect, intact judgment & insight - Labs CBC & Chem 7: 03/25/19 03:22 03/25/19 03:22 Labs: Abnormal lab results 03/24/19 03/24/19 03/24/19 Range/Units 16:03 16:10 16:35 WBC (4.5-11.0) K/mm3 RBC 3.60 L (3.65-5.03) M/mm3 Hgb 9.8 L (10.1-14.3) gm/dl MCH 27 L (28-32) pg RDW 15.9 H (13.2-15.2) % Lymph % (Auto) (13.4-35.0) % Seg Neutrophils % (40.0-70.0) % Seg Neutrophils # (1.8-7.7) K/mm3 Chloride (98-107) mmol/L BUN (7-17) mg/dL Creatinine (0.7-1.2) mg/dL Glucose (65-100) mg/dL POC Glucose 117 H (70-105) C-Reactive Protein 3.20 H (0.00-1.30) mg/dL 03/24/19 03/25/19 03/25/19 Range/Units 21:50 03:22 03:22 WBC 11.4 H (4.5-11.0) K/mm3 RBC 3.59 L (3.65-5.03) M/mm3 Hgb 9.7 L (10.1-14.3) gm/dl MCH 27 L (28-32) pg RDW 15.9 H (13.2-15.2) % Lymph % (Auto) 12.9 L (13.4-35.0) % Seg Neutrophils % 78.6 H (40.0-70.0) % Seg Neutrophils # 9.0 H (1.8-7.7) K/mm3 Chloride 113.8 H (98-107) mmol/L BUN 6 L (7-17) mg/dL Creatinine 0.6 L (0.7-1.2) mg/dL Glucose 132 H (65-100) mg/dL POC Glucose 109 H (70-105) C-Reactive Protein (0.00-1.30) mg/dL 03/25/19 Range/Units 07:32 WBC (4.5-11.0) K/mm3 RBC (3.65-5.03) M/mm3 Hgb (10.1-14.3) gm/dl MCH (28-32) pg RDW (13.2-15.2) % Lymph % (Auto) (13.4-35.0) % Seg Neutrophils % (40.0-70.0) % Seg Neutrophils # (1.8-7.7) K/mm3 Chloride (98-107) mmol/L BUN (7-17) mg/dL Creatinine (0.7-1.2) mg/dL Glucose (65-100) mg/dL POC Glucose 137 H (70-105) C-Reactive Protein (0.00-1.30) mg/dL - Imaging and cardiology CT scan - abdomen: report reviewed
--- NOTE | 2019-03-25 14:57 | Gastroenterology Progress Note ---
Assessment and Plan This is a 64 yo female with pmh of HTN, DM, anxiety, and kidney stones admitted for abdominal pain and pancreatitis. # Abdominal pain/nausea/vomiting # CT findings suggestive of hemorrhagic pancreatitis of pancreatic head and small gallstones - unclear etiology for pancreatitis. - no alcohol hx. - did not tolerate clears last evening due to worsening pain. - triglyceride levels normal. - currently on levaquin empirically. Rec - continue with IV fluids. - Pain control. - antiemetics. - will obtain RUQ US to evaluate for gallstones further. - general surgery consult for gallstone pancreatitis. - if pain not improving, may need repeat CT tomorrow. Subjective Date of service: 03/25/19 Interval history: Patient tried liquids yesterday with jello but had worsening abdominal pain overnight. Kept NPO today. Reports persistent abdominal pain. No vomiting. Objective - Constitutional Vitals: Temp Pulse Resp BP Pulse Ox 98.6 F 92 H 18 162/94 97 03/25/19 07:25 03/25/19 10:50 03/25/19 10:50 03/25/19 07:35 03/25/19 10:50 - EENT Eyes: EOM intact ENT: hearing intact - Neck Neck: supple - Respiratory Respiratory effort: normal - Cardiovascular Rhythm: regular Heart Sounds: Present: S1 & S2 - Gastrointestinal General gastrointestinal: Present: soft, tender, non-distended, normal bowel sounds - Integumentary Integumentary: Present: clear, warm - Neurologic Neurological: alert and oriented x3 - Labs CBC & Chem 7: 03/25/19 03:22 03/25/19 03:22 Labs: Laboratory Results - last 24 hr 03/24/19 03/24/19 03/24/19 16:03 16:10 16:10 WBC 10.4 RBC 3.60 L Hgb 9.8 L Hct 30.7 MCV 85 MCH 27 L MCHC 32 RDW 15.9 H Plt Count 255 Lymph % (Auto) [place] % (Auto) Eos % (Auto) Baso % (Auto) Lymph # [place] # Eos # Baso # Seg Neutrophils % Seg Neutrophils # Sodium Potassium Chloride Carbon Dioxide Anion Gap BUN Creatinine Estimated GFR BUN/Creatinine Ratio Glucose POC Glucose Calcium C-Reactive Protein 3.20 H Triglycerides 103 03/24/19 03/24/19 03/25/19 16:35 21:50 03:22 WBC 11.4 H RBC 3.59 L Hgb 9.7 L Hct 30.3 MCV 85 MCH 27 L MCHC 32 RDW 15.9 H Plt Count 258 Lymph % (Auto) 12.9 L [place] % (Auto) 7.1 Eos % (Auto) 0.6 Baso % (Auto) 0.8 Lymph # 1.5 Titus # 0.8 Eos # 0.1 Baso # 0.1 Seg Neutrophils % 78.6 H Seg Neutrophils # 9.0 H Sodium Potassium Chloride Carbon Dioxide Anion Gap BUN Creatinine Estimated GFR BUN/Creatinine Ratio Glucose POC Glucose 117 H 109 H Calcium C-Reactive Protein Triglycerides 03/25/19 03/25/19 03/25/19 03:22 07:32 11:15 WBC RBC Hgb Hct MCV MCH MCHC RDW Plt Count Lymph % (Auto) [place] % (Auto) Eos % (Auto) Baso % (Auto) Lymph # [place] # Eos # Baso # Seg Neutrophils % Seg Neutrophils # Sodium 145 Potassium 4.7 Chloride 113.8 H Carbon Dioxide 23 Anion Gap 13 BUN 6 L Creatinine 0.6 L Estimated GFR > 60 BUN/Creatinine Ratio 10 Glucose 132 H POC Glucose 137 H 96 Calcium 9.0 C-Reactive Protein Triglycerides
--- NOTE | 2019-03-25 19:17 | Ultrasound Report ---
ULTRASOUND ABDOMEN, LIMITED (RIGHT UPPER QUADRANT) INDICATION: RUQ pain, gallstones. COMPARISON: None available. Exam is limited secondary to patient body habitus FINDINGS: Pancreas: Cannot be visualized Liver: Normal. Gallbladder: Normal. Bile ducts: Normal. Common Bile Duct measures 2. mm. Free fluid: None. Additional Findings: 2 cm right renal cyst is present IMPRESSION: 1. No sonographic abnormality of the right upper quadrant. Signer Name: Irving Mauro MD Signed: 03/25/2019 7:13 PM Workstation Name: [id number]
[2019-03-25] MEDS: traZODone 50 MG TAB PO SCH (22:25)
[2019-03-26] MEDS: D5NS W/KCL 20 MEQ 20 MEQ/1,000 ML BAG IV SCH ×3 (00:05→22:00)
[2019-03-26] MEDS: ACETAMINOPHEN 325 MG TAB PO PRN ×2 (07:41→21:59)
[2019-03-26 08:59] LABS: C-Reactive Protein 3.5 mg/dL (0.00-1.30)
[2019-03-26] MEDS: PANTOPRAZOLE 40 MG TAB PO SCH (08:59)
--- NOTE | 2019-03-26 11:15 | Consultation ---
History of Present Illness Consult date: 03/26/19 Reason for consult: abdominal pain Requesting physician: ELISABETH LYNN Chief complaint: abdominal pain, N/V - History of present illness History of present illness: 64yo F who presented a few days ago with acute onset of abdominal pain, nausea, and vomiting. She has had this once before couple of months ago. She was worked up for peptic ulcer disease, but nothing was found. This time, her CT scan shows a large amount of fluid around the head of the pancreas. She was assessed to have hemorrhagic pancreatitis and Gen. surgery was consult the to evaluate for gallstone pancreatitis. Patient reports that her pain is slightly improved today. She is able to tolerate some clear liquids this morning. She continues to have significant discomfort in the upper abdomen and back. She has more discomfort on the right flank area. Past History Past Medical History: diabetes, hypertension, hyperlipidemia, hypothyroidism, stroke (Times 2 - last one was 2005. she has residual right sided weakness) Past Surgical History: , hysterectomy, Other (Left knee surgery, cataract surgery, bunionectomy, breast reduction, surgery for endometriosis) Social history: no significant social history. denies: smoking, alcohol abuse Family history: cancer (Mother had breast cancer), diabetes, hypertension Medications and Allergies Allergies Allergy/AdvReac Type Severity Reaction Status Date / Time amoxicillin [Amoxicillin] Allergy Hives Verified 03/31/16 19:02 clarithromycin Allergy Hives Verified 03/31/16 19:02 clindamycin Allergy Hives Verified 03/31/16 19:02 Home Medications Medication Instructions Recorded Confirmed Last Taken Type Gabapentin 300 mg PO TID 09/22/14 03/24/19 09/28/14 06:30 History Levocetirizine Dihydrochloride 5 mg PO DAILY 09/22/14 03/24/19 09/27/14 19:30 History [Xyzal] Pantoprazole [Protonix TAB] 40 mg PO QDAY 09/22/14 03/24/19 09/21/14 09:00 History Pravastatin [Pravachol] 40 mg PO QHS 09/22/14 03/24/19 09/21/14 09:00 History Verapamil ER [Calan SR] 240 mg PO BIDWM 09/22/14 03/24/19 09/28/14 06:30 History Ondansetron [Zofran ODT TAB] 8 mg PO Q8HR #20 tab.rapdis 02/08/19 03/24/19 Unknown Rx Arginine [l-Arginine] 500 mg PO BID 03/24/19 03/24/19 Unknown History Azelastine/Fluticasone [Dymista 1 gm NS BID 03/24/19 03/24/19 Unknown History Nasal [place]] Cholecalciferol (Vitamin D3) 2,000 unit PO QDAY 03/24/19 03/24/19 Unknown History [Vitamin D3 2,000 UNIT CAP] Clopidogrel [Plavix] 75 mg PO QDAY 03/24/19 03/24/19 Unknown History Escitalopram [Lexapro] 20 mg PO DAILY MDD 1 1/2 03/24/19 03/24/19 Unknown History Fluticasone/Salmeterol [Advair 1 puff IH BID 03/24/19 03/24/19 Unknown History Diskus 250-50 mcg] Glucosam/Ander-Msm1/C/Neftali/Bosw 1 each PO BID 03/24/19 03/24/19 Unknown History [Osteo Bi-Flex Caplet] Loratadine 10 mg PO QDAY 03/24/19 03/24/19 Unknown History Polyethylene Glycol 3350 [Miralax 17 gm PO QDAY 03/24/19 03/24/19 Unknown History 3350] Prednisolone Acetate/Pf 5 ml OU BID 03/24/19 03/24/19 Unknown History [Prednisolone Acet 1% Eye Drop] clonazePAM 0.5 mg PO QDAY 03/24/19 03/24/19 Unknown History metFORMIN [Glucophage] 500 mg PO TID 03/24/19 03/24/19 Unknown History traZODone [Desyrel] 50 mg PO QHS 03/24/19 03/24/19 Unknown History Active Meds: Active Medications Acetaminophen (Tylenol) 650 mg PO Q4H PRN PRN Reason: Pain MILD(1-3)/Fever >100.5/AKERS Last Admin: 03/26/19 07:41 Dose: 650 mg Documented by: Hydralazine HCl (Apresoline) 10 mg IV Q6HR PRN PRN Reason: Blood Pressure Last Admin: 03/25/19 07:35 Dose: 10 mg Documented by: Hydromorphone HCl (Dilaudid) 1 mg IV Q4H PRN PRN Reason: Pain , Severe (7-10) Last Admin: 03/25/19 14:40 Dose: 1 mg Documented by: Levofloxacin/Dextrose (Levaquin 750mg/150ml) 750 mg in 150 mls @ 100 mls/hr IV Q24H [facility]; Protocol Last Admin: 03/25/19 17:02 Dose: 100 mls/hr Documented by: Potassium Chloride/Dextrose/Sod Cl (D5w/Ns W/Kcl 20meq) 20 meq in 1,000 mls @ 150 mls/hr IV DIRECT [facility] Last Admin: 03/26/19 00:05 Dose: 150 mls/hr Documented by: Ondansetron HCl (Zofran) 4 mg IV Q8H PRN PRN Reason: Nausea And Vomiting Last Admin: 03/25/19 07:38 Dose: 4 mg Documented by: Pantoprazole Sodium (Protonix) 40 mg PO QDAY [facility] Last Admin: 03/26/19 08:59 Dose: 40 mg Documented by: Sodium Chloride (Sodium Chloride Flush Syringe 10 Ml) 10 ml IV BID [facility] Last Admin: 03/26/19 08:59 Dose: Not Given Documented by: Sodium Chloride (Sodium Chloride Flush Syringe 10 Ml) 10 ml IV PRN PRN PRN Reason: LINE FLUSH Trazodone HCl (Desyrel) 50 mg PO QHS [facility] Last Admin: 03/25/19 22:25 Dose: 50 mg Documented by: Review of Systems - Constitutional no fever, no chills, no chronic pain - Cardiovascular no chest pain - Respiratory no cough, no shortness of breath - Gastrointestinal abdominal pain, nausea, vomiting, no hematemesis, no coffee ground emesis, no BRBPR, no melena, no hematochezia, no dyspepsia/bloating - Genitourinary Genitourinary: no dysuria - Muskuloskeletal other (has midback pain), no low back pain - Integumentary no pruritis, no wounds, no jaundice - Neurological weakness (on right side) Exam Vital Signs Pulse Resp Pulse Ox 118 H 13 96 03/23/19 16:29 03/23/19 16:29 03/23/19 16:29 - General physical appearance Positive: no distress, no pain, other (pleasant) - Eyes Positive: normal occular movement. Negative: icteric - Respiratory Positive: normal expansion, normal respiratory effort - Cardiovascular Rhythm: regular - Abdomen Abdomen: Present: soft, tender (in epigastric area, LLQ (minimal), and right upper quadrant/flank area), bowel sounds hypoactive, distended (mild in upper abdomen), surgical scars (well healed Pfannenstiel incision). Absent: guarding, rigid - Integumentary no rash, no growths, no abnormal pigmentation - Neurologic Neurologic: alert and oriented to time, place and person - Psychiatric Psychiatric: appropriate mood/affect, intact judgment & insight, cooperative Results - Labs 03/25/19 03:22 03/25/19 03:22 Abnormal lab results 03/25/19 03/25/19 03/26/19 Range/Units 16:24 21:20 07:07 POC Glucose 144 H 124 H (70-105) C-Reactive Protein 3.50 H (0.00-1.30) mg/dL 03/26/19 Range/Units 07:19 POC Glucose 148 H (70-105) C-Reactive Protein (0.00-1.30) mg/dL - Imaging CT scan - abdomen: report reviewed, image reviewed CT scan - pelvis: report reviewed, image reviewed (reviewed with Dr. Clarke) US - abdomen: report reviewed, image reviewed Assessment and Plan - Patient Problems (1) Abdominal pain Current Visit: Yes Status: Acute Qualifiers: Abdominal location: upper abdomen, unspecified Qualified Code(s): R10.10 - Upper abdominal pain, unspecified Plan to address problem: Pt stable. Patient's history could be consistent with gallstone pancreatitis, but the labs and ultrasound do not support that diagnosis. I reviewed the CT scan and ultrasound in detail with the radiologist, Dr. Clarke. We both thought that perhaps there was a slight amount of gravel/sludge in the neck of the gallbladder. However, there clearly were no definitive stones. As for the CT, there is clearly fluid around the head of the pancreas that is consistent with blood based on Hounsfield units. However, the detail and fat planes of the pancreas are preserved. This goes against pancreatitis. He suggested that perhaps she had a duodenal issue causing bleeding or a mesenteric abnormality for potentially venous bleeding. Based on her hemodynamic stability, she does not appear to have any active bleeding at this time. Also, Dr. Lazcano, from gastroenterology, recently did an EGD and it was negative for any upper duodenal problems. I discussed this with Dr. Lynn. I am not sure that the gallbladder is the cause of this abnormality. It is quite possible we have something completely separate from the pancreas. We agreed that a repeat CT scan with oral and IV contrast may be beneficial. If after everything is done, we are still left with a remote chance that gallbladder sludge may have caused this problem, then we will consider cholecystectomy. Will follow along. Please call with questions. Time=90min
--- NOTE | 2019-03-26 12:04 | Gastroenterology Progress Note ---
Assessment and Plan This is a 64 yo female with pmh of HTN, DM, anxiety, and kidney stones admitted for abdominal pain and pancreatitis. 1. Abdominal pain/nausea/vomiting 2. CT findings suggestive of hemorrhagic pancreatitis of pancreatic head and small gallstones - unclear etiology for pancreatitis. - no alcohol hx. - Tolerated clears this AM, advance diet to full liquids. - triglyceride levels normal. - currently on levaquin empirically. - US normal - Surgical consult pending - Labs ordered for today, pending. ( CBC, CMP, Lipase, CRP) Subjective Date of service: 03/26/19 Interval history: Pt sitting up on side of bed. Reports her abd pain has improved since admission. Tolerating clears well. Objective - Constitutional Vitals: Temp Pulse Resp BP Pulse Ox 98.6 F 86 16 162/85 93 03/26/19 07:19 03/26/19 09:47 03/26/19 09:47 03/26/19 07:19 03/26/19 09:47 General appearance: no acute distress - EENT Eyes: EOM intact ENT: hearing intact - Neck Neck: supple - Cardiovascular Rhythm: regular Heart Sounds: Present: S1 & S2 - Gastrointestinal General gastrointestinal: Present: tender, distended, normal bowel sounds (TTP mid abdomen, mildly distended) - Integumentary Integumentary: Present: warm, dry - Neurologic Neurological: alert and oriented x3 - Labs CBC & Chem 7: 03/25/19 03:22 03/25/19 03:22 Labs: Laboratory Results - last 24 hr 03/25/19 03/25/19 03/26/19 16:24 21:20 07:07 POC Glucose 144 H 124 H C-Reactive Protein 3.50 H Lipase 22 03/26/19 03/26/19 07:19 11:24 POC Glucose 148 H 121 H C-Reactive Protein Lipase
--- NOTE | 2019-03-26 12:53 | Progress Note ---
Assessment and Plan /Acute hemorrhagic pancreatitis CT findings suggestive of hemorrhagic pancreatitis of pancreatic head and small gallstones cont on IV fluid. as needed analgesic medication. normal lipase levels. normal abdominal US, triglyceride levels normal, no EtOH history consulted GI, Tolerated clears this AM, advance diet to full liquids. Ordered for repeat CT abdomen today /SIRS with organ dysfunction - hemorrhagic pancreatitis We will continue patient on IV fluid. She has also been placed on empiric IV antibiotics till cx negative. We will monitor lactic acid level. /Abdominal pain Probably secondary to the hemorrhagic pancreatitis. We will continue on analgesic medication. /Obesity, diet and exercise recommendation when clinically stable /UTI: suspected, but urine cx grew normal normal duke / DVT prophylaxis Patient placed on sequential compression device. / Full code status Brief History: This is a 64 yo female with pmh of HTN, DM, anxiety, and kidney stones admitted for abdominal pain and pancreatitis. Subjective Date of service: 03/26/19 Interval history: Patient seen and examined Continue c/o abdominal pain denies any alcohol abuse tolerated clear liquid discussed with GI, RN and with pt at bedside Objective - Exam Narrative Exam: General appearance: Present: mild distress, obese - EENT Eyes: PERRL, EOM intact ENT: hearing intact, clear oral mucosa Ears: bilateral: normal - Neck Neck: supple, normal ROM - Respiratory Respiratory effort: normal Respiratory: bilateral: CTA - Cardiovascular Rhythm: regular Heart Sounds: Present: S1 & S2. Absent: gallop, rub Extremities: pulses intact, No edema, normal color, Full ROM - Gastrointestinal General gastrointestinal: Present: soft, tender (epigastric), non-distended, normal bowel sounds - Integumentary Integumentary: clear, warm, dry - Musculoskeletal Musculoskeletal: 1, strength equal bilaterally - Neurologic Neurologic: moves all extremities - Psychiatric Psychiatric: memory intact, appropriate mood/affect, intact judgment & insight - Constitutional Vitals: Vital Signs - 12hr 03/26/19 03/26/19 03/26/19 02:06 07:19 09:46 Temperature 98.8 F 98.6 F Pulse Rate 87 85 86 Pulse Rate [ From Monitor] Respiratory 18 20 Rate Blood Pressure 155/88 162/85 O2 Sat by Pulse 91 93 Oximetry 03/26/19 09:47 Temperature Pulse Rate Pulse Rate [ 86 From Monitor] Respiratory 16 Rate Blood Pressure O2 Sat by Pulse 93 Oximetry - Labs CBC & Chem 7: 03/27/19 04:31 11/15/19 04:31 Labs: Abnormal lab results 03/25/19 03/25/19 03/26/19 Range/Units 16:24 21:20 07:07 POC Glucose 144 H 124 H (70-105) C-Reactive Protein 3.50 H (0.00-1.30) mg/dL 03/26/19 03/26/19 Range/Units 07:19 11:24 POC Glucose 148 H 121 H (70-105) C-Reactive Protein (0.00-1.30) mg/dL
[2019-03-26] MEDS: ONDANSETRON 4 MG/2 ML INJ IV PRN (13:37)
[2019-03-26 13:55] LABS: Hematocrit 29.9 % (30.3-42.9); Hemoglobin 9.5 gm/dl (10.1-14.3); Mean Corpuscular HGB Conc 32 % (30-34); Mean Corpuscular Volume 85 fl (79-97); Platelet Count 261 K/mm3 (140-440); Red Blood Count 3.51 M/mm3 (3.65-5.03)
[2019-03-26 14:10] LABS: C-Reactive Protein 3.4 mg/dL (0.00-1.30)
[2019-03-26 14:11] LABS: Alanine Aminotransferase 20 units/L (7-56); Albumin 3.4 g/dL (3.9-5); BUN/Creatinine Ratio 7; Blood Urea Nitrogen 4 mg/dL (7-17); Calcium 9.3 mg/dL (8.4-10.2); Hemolysis Index 4
--- NOTE | 2019-03-26 18:42 | Cat Scan Report ---
CT ABDOMEN AND PELVIS WITH CONTRAST HISTORY: Abdominal pain. COMPARISON: Previous CTs on 03/23/2019 and 02/08/2019 TECHNIQUE: Routine abdominal and pelvic CT exam performed following intravenous contrast administrat ion. The patient received 100 mL of IV Omnipaque 300. All CT scans at this location are performed usi ng CT dose reduction for ALARA by means of automated exposure control. FINDINGS: CT ABDOMEN: Lung Bases: There are increasing small bilateral pleural effusions and passive atelectasis in the yamil g bases. Liver: Unchanged hepatic cysts. Biliary: High density material layering in the gallbladder probably indicates the carious excretion o f contrast. Spleen: No significant abnormality. Unenlarged. Pancreas: There is largely unchanged hyperattenuating fluid around the head of the pancreas and secon d and third parts of the duodenum. There is no pancreatic necrosis or well-defined fluid collection. Adrenals: No significant abnormality. Kidneys: Stable bilateral simple renal cysts. Lymphatics: No lymphadenopathy. Vasculature: No significant abnormality. There is no evidence of dissection, aneurysm, or extravasati on of contrast. Bowel/Peritoneum: There is no bowel obstruction. There is no extraluminal contrast to suggest bowel p erforation. There is no free air. There is sigmoid diverticulosis without diverticulitis. CT PELVIC: : No significant abnormality. Lymphatics: No lymphadenopathy. Osseous Structures: No aggressive appearing osseous lesions. Additional Findings: None IMPRESSION: 1. Markedly stable hyperattenuating fluid in the retroperitoneum adjacent to the pancreatic head and second and third parts of the duodenum. There is no pancreatic necrosis or fluid collection. In fact, the pancreas appears largely normal. Although this could indicate hemorrhagic pancreatitis, other so urces of retroperitoneal hemorrhage including a venous hemorrhage should be considered. There is no a ppreciable arterial extravasation. The hemorrhage has not increased in size from the prior study. 2. Increasing small bilateral pleural effusions. Signer Name: Johnny Hallman MD Signed: 03/26/2019 6:38 PM Workstation Name: [id number]
[2019-03-26] MEDS: traZODone 50 MG TAB PO SCH (22:00)
[2019-03-27 05:00] LABS: Basophils # (Auto) 0.1 K/mm3 (0.0-0.1); Basophils % (Auto) 0.9 % (0.0-1.8); Eosinophils # (Auto) 0.3 K/mm3 (0.0-0.4); Eosinophils % (Auto) 2.8 % (0.0-4.3); Hematocrit 30.4 % (30.3-42.9); Hemoglobin 9.8 gm/dl (10.1-14.3); Lymphocytes # (Auto) 1.8 K/mm3 (1.2-5.4); Lymphocytes % (Auto) 19.3 % (13.4-35.0); Mean Corpuscular HGB Conc 32 % (30-34); Mean Corpuscular Volume 85 fl (79-97); Monocytes # (Auto) 0.7 K/mm3 (0.0-0.8); Monocytes % (Auto) 7.3 % (0.0-7.3); Platelet Count 292 K/mm3 (140-440); Red Blood Count 3.56 M/mm3 (3.65-5.03); Red Cell Distribution Width 15.9 % (13.2-15.2)
[2019-03-27 05:20] LABS: BUN/Creatinine Ratio 3; Blood Urea Nitrogen 2 mg/dL (7-17); Hemolysis Index 4
[2019-03-27] MEDS: D5NS W/KCL 20 MEQ 20 MEQ/1,000 ML BAG IV SCH (05:44)
--- NOTE | 2019-03-27 08:10 | Progress Note ---
Assessment and Plan /Acute hemorrhagic pancreatitis CT findings suggestive of hemorrhagic pancreatitis of pancreatic head and small gallstones cont on IV fluid. as needed analgesic medication. normal lipase levels. no EtOH history consulted GI, start on clear liquid from dinner. /SIRS with organ dysfunction - hemorrhagic pancreatitis We will continue patient on IV fluid. She has also been placed on empiric IV antibiotics till cx negative. We will monitor lactic acid level. /Abdominal pain Probably secondary to the hemorrhagic pancreatitis. We will continue on analgesic medication. /Obesity, diet and exercise recommendation when clinically stable / DVT prophylaxis Patient placed on sequential compression device. / Full code status Brief History: This is a 64 yo female with pmh of HTN, DM, anxiety, and kidney stones admitted for abdominal pain and pancreatitis. Subjective Date of service: 03/24/19 Interval history: Patient seen and examined Continue c/o abdominal pain denies any alcohol abuse discussed with GI, RN and with pt at bedside Objective - Exam Narrative Exam: General appearance: Present: mild distress, obese - EENT Eyes: PERRL, EOM intact ENT: hearing intact, clear oral mucosa Ears: bilateral: normal - Neck Neck: supple, normal ROM - Respiratory Respiratory effort: normal Respiratory: bilateral: CTA - Cardiovascular Rhythm: regular Heart Sounds: Present: S1 & S2. Absent: gallop, rub Extremities: pulses intact, No edema, normal color, Full ROM - Gastrointestinal General gastrointestinal: Present: soft, tender (epigastric), non-distended, normal bowel sounds - Integumentary Integumentary: clear, warm, dry - Musculoskeletal Musculoskeletal: 1, strength equal bilaterally - Neurologic Neurologic: moves all extremities - Psychiatric Psychiatric: memory intact, appropriate mood/affect, intact judgment & insight - Constitutional Vitals: Vital Signs - 12hr 03/26/19 03/26/19 03/26/19 21:59 22:00 22:59 Temperature Pulse Rate 96 H Pulse Rate [ 96 H From Monitor] Respiratory 18 18 18 Rate Blood Pressure O2 Sat by Pulse 94 Oximetry 03/27/19 03/27/19 03/27/19 01:46 02:01 07:26 Temperature 98.6 F 99.1 F Pulse Rate 90 83 Pulse Rate [ From Monitor] Respiratory 20 20 Rate Blood Pressure 158/92 172/86 O2 Sat by Pulse 95 94 Oximetry - Labs CBC & Chem 7: 03/27/19 04:31 11/15/19 04:31 Labs: Abnormal lab results 03/26/19 03/26/19 03/26/19 Range/Units 07:07 11:24 13:24 RBC 3.51 L (3.65-5.03) M/mm3 Hgb 9.5 L (10.1-14.3) gm/dl Hct 29.9 L (30.3-42.9) % MCH 27 L (28-32) pg RDW 16.0 H (13.2-15.2) % Chloride (98-107) mmol/L Carbon Dioxide (22-30) mmol/L BUN (7-17) mg/dL Creatinine (0.7-1.2) mg/dL Glucose (65-100) mg/dL POC Glucose 121 H (70-105) C-Reactive Protein 3.50 H (0.00-1.30) mg/dL Albumin (3.9-5) g/dL 03/26/19 03/26/19 03/26/19 Range/Units 13:24 13:24 16:17 RBC (3.65-5.03) M/mm3 Hgb (10.1-14.3) gm/dl Hct (30.3-42.9) % MCH (28-32) pg RDW (13.2-15.2) % Chloride 110.0 H (98-107) mmol/L Carbon Dioxide 20 L (22-30) mmol/L BUN 4 L (7-17) mg/dL Creatinine 0.6 L (0.7-1.2) mg/dL Glucose 179 H (65-100) mg/dL POC Glucose 166 H (70-105) C-Reactive Protein 3.40 H (0.00-1.30) mg/dL Albumin 3.4 L (3.9-5) g/dL 03/26/19 03/27/19 03/27/19 Range/Units 22:03 04:31 04:31 RBC 3.56 L (3.65-5.03) M/mm3 Hgb 9.8 L (10.1-14.3) gm/dl Hct (30.3-42.9) % MCH 27 L (28-32) pg RDW 15.9 H (13.2-15.2) % Chloride 110.9 H (98-107) mmol/L Carbon Dioxide (22-30) mmol/L BUN 2 L (7-17) mg/dL Creatinine 0.6 L (0.7-1.2) mg/dL Glucose 139 H (65-100) mg/dL POC Glucose 156 H (70-105) C-Reactive Protein (0.00-1.30) mg/dL Albumin (3.9-5) g/dL 03/27/19 Range/Units 07:11 RBC (3.65-5.03) M/mm3 Hgb (10.1-14.3) gm/dl Hct (30.3-42.9) % MCH (28-32) pg RDW (13.2-15.2) % Chloride (98-107) mmol/L Carbon Dioxide (22-30) mmol/L BUN (7-17) mg/dL Creatinine (0.7-1.2) mg/dL Glucose (65-100) mg/dL POC Glucose 139 H (70-105) C-Reactive Protein (0.00-1.30) mg/dL Albumin (3.9-5) g/dL
[2019-03-27] MEDS: ONDANSETRON 4 MG/2 ML INJ IV PRN ×2 (08:19→16:28)
--- NOTE | 2019-03-27 08:21 | Progress Note ---
Assessment and Plan - Patient Problems (1) Abdominal pain Current Visit: Yes Status: Acute Qualifiers: Abdominal location: upper abdomen, unspecified Qualified Code(s): R10.10 - Upper abdominal pain, unspecified Plan to address problem: Pt stable. Repeat CT seems more suggestive that the cause of this abnormality is not pancreatitis. That would be consistent with the normal labs. Perhaps, she had a retroperitoneal bleed, but she has no clear trauma history. Would be unusual location for plavix associated spontaneous bleed. No surgery indicated at this time. Please call with questions. Discussed with Dr. Lynn Time=10min Subjective Date of service: 03/27/19 Patient Reports: Positive: no new complaints, still having pain, tolerating liquids well (small amounts), nausea Objective Vital Signs - 12hr 03/26/19 03/26/19 03/26/19 21:59 22:00 22:59 Temperature Pulse Rate 96 H Pulse Rate [ 96 H From Monitor] Respiratory 18 18 18 Rate Blood Pressure O2 Sat by Pulse 94 Oximetry 03/27/19 03/27/19 03/27/19 01:46 02:01 07:26 Temperature 98.6 F 99.1 F Pulse Rate 90 83 Pulse Rate [ From Monitor] Respiratory 20 20 Rate Blood Pressure 158/92 172/86 O2 Sat by Pulse 95 94 Oximetry - General physical appearance no distress, other (appears uncomfortable) - Eyes normal occular movement - Respiratory normal expansion, normal respiratory effort - Abdomen soft, tender (in epigastric area) - Integumentary no rash, no growths, no abnormal pigmentation - Psychiatric oriented to time, oriented to person, oriented to place, speech is normal, me efren intact - Labs 03/27/19 04:31 03/27/19 04:31 Diabetes panel 03/26/19 03/27/19 Range/Units 13:24 04:31 Sodium 144 144 (137-145) mmol/L Potassium 4.1 4.2 (3.6-5.0) mmol/L Chloride 110.0 H 110.9 H (98-107) mmol/L Carbon Dioxide 20 L 22 (22-30) mmol/L BUN 4 L 2 L (7-17) mg/dL Creatinine 0.6 L 0.6 L (0.7-1.2) mg/dL Glucose 179 H 139 H (65-100) mg/dL Calcium 9.3 9.0 (8.4-10.2) mg/dL AST 19 (5-40) units/L ALT 20 (7-56) units/L Alkaline Phosphatase 56 (35-129) units/L Total Protein 6.4 (6.3-8.2) g/dL Albumin 3.4 L (3.9-5) g/dL Calcium panel 03/26/19 03/27/19 Range/Units 13:24 04:31 Calcium 9.3 9.0 (8.4-10.2) mg/dL Albumin 3.4 L (3.9-5) g/dL Pituitary panel 03/26/19 03/27/19 Range/Units 13:24 04:31 Sodium 144 144 (137-145) mmol/L Potassium 4.1 4.2 (3.6-5.0) mmol/L Chloride 110.0 H 110.9 H (98-107) mmol/L Carbon Dioxide 20 L 22 (22-30) mmol/L BUN 4 L 2 L (7-17) mg/dL Creatinine 0.6 L 0.6 L (0.7-1.2) mg/dL Glucose 179 H 139 H (65-100) mg/dL Calcium 9.3 9.0 (8.4-10.2) mg/dL Adrenal panel 03/26/19 03/27/19 Range/Units 13:24 04:31 Sodium 144 144 (137-145) mmol/L Potassium 4.1 4.2 (3.6-5.0) mmol/L Chloride 110.0 H 110.9 H (98-107) mmol/L Carbon Dioxide 20 L 22 (22-30) mmol/L BUN 4 L 2 L (7-17) mg/dL Creatinine 0.6 L 0.6 L (0.7-1.2) mg/dL Glucose 179 H 139 H (65-100) mg/dL Calcium 9.3 9.0 (8.4-10.2) mg/dL Total Bilirubin 0.40 (0.1-1.2) mg/dL AST 19 (5-40) units/L ALT 20 (7-56) units/L Alkaline Phosphatase 56 (35-129) units/L Total Protein 6.4 (6.3-8.2) g/dL Albumin 3.4 L (3.9-5) g/dL - Imaging CT scan - abdomen: report reviewed, image reviewed CT scan - pelvis: report reviewed, image reviewed
[2019-03-27] MEDS: PANTOPRAZOLE 40 MG TAB PO SCH (09:39)
--- NOTE | 2019-03-27 10:28 | Consultation ---
History of Present Illness - Reason for Consult Consult date: 03/27/19 Abdominal bleeding - History of Present Illness Patient with a history of kidney stones presents with midepigastric abdominal pain. She underwent a CT of the abdomen which demonstrates bleeding in the region of the pancreas with no active source identified. No intraluminal blood is identified. The patient's hemoglobin dropped from admission however has since remained stable during her hospitalization. A repeat CT scan performed on the demonstrated no change in the size or appearance of her intra-abdominal hematoma. Patient is tolerating a diet for the past 2 days. Past History Past Medical History: diabetes, hypertension, hyperlipidemia, hypothyroidism, stroke (Times 2 - last one was 2005. she has residual right sided weakness), other (kidney stones) Past Surgical History: , hysterectomy, Other (Left knee surgery, cataract surgery, bunionectomy, breast reduction, surgery for endometriosis) Social history: no significant social history. denies: smoking, alcohol abuse Family history: cancer (Mother had breast cancer), diabetes, hypertension Medications and Allergies Allergies Allergy/AdvReac Type Severity Reaction Status Date / Time amoxicillin [Amoxicillin] Allergy Hives Verified 03/31/16 19:02 clarithromycin Allergy Hives Verified 03/31/16 19:02 clindamycin Allergy Hives Verified 03/31/16 19:02 Home Medications Medication Instructions Recorded Confirmed Last Taken Type Gabapentin 300 mg PO TID 09/22/14 03/24/19 09/28/14 06:30 History Levocetirizine Dihydrochloride 5 mg PO DAILY 09/22/14 03/24/19 09/27/14 19:30 History [Xyzal] Pantoprazole [Protonix TAB] 40 mg PO QDAY 09/22/14 03/24/19 09/21/14 09:00 History Pravastatin [Pravachol] 40 mg PO QHS 09/22/14 03/24/19 09/21/14 09:00 History Verapamil ER [Calan SR] 240 mg PO BIDWM 09/22/14 03/24/19 09/28/14 06:30 History Ondansetron [Zofran ODT TAB] 8 mg PO Q8HR #20 tab.rapdis 02/08/19 03/24/19 Unknown Rx Arginine [l-Arginine] 500 mg PO BID 03/24/19 03/24/19 Unknown History Azelastine/Fluticasone [Dymista 1 gm NS BID 03/24/19 03/24/19 Unknown History Nasal [place]] Cholecalciferol (Vitamin D3) 2,000 unit PO QDAY 03/24/19 03/24/19 Unknown History [Vitamin D3 2,000 UNIT CAP] Clopidogrel [Plavix] 75 mg PO QDAY 03/24/19 03/24/19 Unknown History Escitalopram [Lexapro] 20 mg PO DAILY MDD 1 1/2 03/24/19 03/24/19 Unknown History Fluticasone/Salmeterol [Advair 1 puff IH BID 03/24/19 03/24/19 Unknown History Diskus 250-50 mcg] Glucosam/Ander-Msm1/C/Neftali/Bosw 1 each PO BID 03/24/19 03/24/19 Unknown History [Osteo Bi-Flex Caplet] Loratadine 10 mg PO QDAY 03/24/19 03/24/19 Unknown History Polyethylene Glycol 3350 [Miralax 17 gm PO QDAY 03/24/19 03/24/19 Unknown Hi story 3350] Prednisolone Acetate/Pf 5 ml OU BID 03/24/19 03/24/19 Unknown History [Prednisolone Acet 1% Eye Drop] clonazePAM 0.5 mg PO QDAY 03/24/19 03/24/19 Unknown History metFORMIN [Glucophage] 500 mg PO TID 03/24/19 03/24/19 Unknown History traZODone [Desyrel] 50 mg PO QHS 03/24/19 03/24/19 Unknown History Active Meds: Active Medications Acetaminophen (Tylenol) 650 mg PO Q4H PRN PRN Reason: Pain MILD(1-3)/Fever >100.5/AKERS Last Admin: 03/26/19 21:59 Dose: 650 mg Documented by: Hydralazine HCl (Apresoline) 10 mg IV Q6HR PRN PRN Reason: Blood Pressure Last Admin: 03/25/19 07:35 Dose: 10 mg Documented by: Hydromorphone HCl (Dilaudid) 1 mg IV Q4H PRN PRN Reason: Pain , Severe (7-10) Last Admin: 03/25/19 14:40 Dose: 1 mg Documented by: Levofloxacin/Dextrose (Levaquin 750mg/150ml) 750 mg in 150 mls @ 100 mls/hr IV Q24H LEA; Protocol Last Admin: 03/26/19 16:59 Dose: 100 mls/hr Documented by: Potassium Chloride/Dextrose/Sod Cl (D5w/Ns W/Kcl 20meq) 20 meq in 1,000 mls @ 50 mls/hr IV DIRECT LEA Last Admin: 03/27/19 05:44 Dose: 150 mls/hr Documented by: Ondansetron HCl (Zofran) 4 mg IV Q8H PRN PRN Reason: Nausea And Vomiting Last Admin: 03/27/19 08:19 Dose: 4 mg Documented by: Pantoprazole Sodium (Protonix) 40 mg PO QDAY [facility] Last Admin: 03/27/19 09:39 Dose: 40 mg Documented by: Sodium Chloride (Sodium Chloride Flush Syringe 10 Ml) 10 ml IV BID [facility] Last Admin: 03/27/19 09:39 Dose: Not Given Documented by: Sodium Chloride (Sodium Chloride Flush Syringe 10 Ml) 10 ml IV PRN PRN PRN Reason: LINE FLUSH Trazodone HCl (Desyrel) 50 mg PO QHS [facility] Last Admin: 03/26/19 22:00 Dose: 50 mg Documented by: Review of Systems All systems: negative Exam - Constitutional Vitals: Temp Pulse Resp BP Pulse Ox 99.1 F 80 20 172/86 94 03/27/19 07:26 03/27/19 10:00 03/27/19 07:26 03/27/19 07:26 03/27/19 10:00 General appearance: Present: no acute distress - EENT Eyes: Present: EOM intact ENT: hearing intact - Neck Neck: Present: supple, normal ROM - Respiratory Respiratory effort: normal - Extremities Extremities: Full ROM - Abdominal General gastrointestinal: Present: soft Female genitourinary: Present: deferred - Rectal Rectal Exam: deferred - Psychiatric Psychiatric: appropriate mood/affect, cooperative - Neurologic Neurologic: no focal deficits Results - Labs CBC & Chem 7: 03/27/19 04:31 03/27/19 04:31 Labs: Abnormal lab results 03/26/19 03/26/19 03/26/19 Range/Units 11:24 13:24 13:24 RBC 3.51 L (3.65-5.03) M/mm3 Hgb 9.5 L (10.1-14.3) gm/dl Hct 29.9 L (30.3-42.9) % MCH 27 L (28-32) pg RDW 16.0 H (13.2-15.2) % Chloride 110.0 H (98-107) mmol/L Carbon Dioxide 20 L (22-30) mmol/L BUN 4 L (7-17) mg/dL Creatinine 0.6 L (0.7-1.2) mg/dL Glucose 179 H (65-100) mg/dL POC Glucose 121 H (70-105) C-Reactive Protein (0.00-1.30) mg/dL Albumin 3.4 L (3.9-5) g/dL 03/26/19 03/26/19 03/26/19 Range/Units 13:24 16:17 22:03 RBC (3.65-5.03) M/mm3 Hgb (10.1-14.3) gm/dl Hct (30.3-42.9) % MCH (28-32) pg RDW (13.2-15.2) % Chloride (98-107) mmol/L Carbon Dioxide (22-30) mmol/L BUN (7-17) mg/dL Creatinine (0.7-1.2) mg/dL Glucose (65-100) mg/dL POC Glucose 166 H 156 H (70-105) C-Reactive Protein 3.40 H (0.00-1.30) mg/dL Albumin (3.9-5) g/dL 03/27/19 03/27/19 03/27/19 Range/Units 04:31 04:31 07:11 RBC 3.56 L (3.65-5.03) M/mm3 Hgb 9.8 L (10.1-14.3) gm/dl Hct (30.3-42.9) % MCH 27 L (28-32) pg RDW 15.9 H (13.2-15.2) % Chloride 110.9 H (98-107) mmol/L Carbon Dioxide (22-30) mmol/L BUN 2 L (7-17) mg/dL Creatinine 0.6 L (0.7-1.2) mg/dL Glucose 139 H (65-100) mg/dL POC Glucose 139 H (70-105) C-Reactive Protein (0.00-1.30) mg/dL Albumin (3.9-5) g/dL - Imaging and Cardiology CT scan - abdomen: report reviewed, image reviewed CT scan - pelvis: report reviewed, image reviewed Assessment and Plan In evaluation of multiple CTs does not demonstrate any active source of bleeding. In addition, in the region of the bleeding no significant vessel abnormality is identified. Would suspect that the patient had idiopathic bleeding from the anterior division of her superior or inferior pancreaticoduodenal artery which is now stopped. Would recommend keeping the patient in the hospital for 2 more days and will order a repeat CTA of the abdomen and pelvis on Saturday. Withhold anticoagulation. Patient's blood pressure will also need to be well controlled.
--- NOTE | 2019-03-27 13:52 | Gastroenterology Progress Note ---
Assessment and Plan This is a 64 yo female with pmh of HTN, DM, anxiety, and kidney stones admitted for abdominal pain and pancreatitis. # Abdominal pain/nausea/vomiting # CT findings suggestive of hemorrhage around the pancreas. - initially concerned about pancreatitis but normal lipase. Repeat CT with similar appearance of hemorrhage around the pancreas but normal appearing pancreas. Likely has spontaneous venous bleed. less likely pancreatitis. - no alcohol hx. - did not tolerate clears last evening due to worsening pain. - triglyceride levels normal. - currently on levaquin empirically. Rec - vascular surgery consulted and recommends repeat CT a/p on Saturday. If stable, discharge afterwards but if on-going hemorrhage, may need embolization. - Pain control. - antiemetics. - monitor H/H. - follow up on repeat CT on Saturday. - will sign off at this time. please call back if needed. Subjective Date of service: 03/27/19 Interval history: abdominal pain much improved and rated at 3 out of 10. No nausea/vomiting. Tolerating diet. Objective - Constitutional Vitals: Temp Pulse Resp BP Pulse Ox 99.1 F 80 20 172/86 94 03/27/19 07:26 03/27/19 10:00 03/27/19 07:26 03/27/19 07:26 03/27/19 10:00 General appearance: no acute distress - EENT Eyes: EOM intact ENT: hearing intact - Neck Neck: supple - Respiratory Respiratory effort: normal - Cardiovascular Rhythm: regular Heart Sounds: Present: S1 & S2 - Gastrointestinal General gastrointestinal: Present: soft, non-tender, non-distended, normal bowel sounds - Labs CBC & Chem 7: 03/27/19 04:31 03/27/19 04:31 Labs: Laboratory Results - last 24 hr 03/26/19 03/26/19 03/26/19 13:24 13:24 13:24 WBC 8.9 RBC 3.51 L Hgb 9.5 L Hct 29.9 L MCV 85 MCH 27 L MCHC 32 RDW 16.0 H Plt Count 261 Lymph % (Auto) [place] % (Auto) Eos % (Auto) Baso % (Auto) Lymph # [place] # Eos # Baso # Seg Neutrophils % Seg Neutrophils # Sodium 144 Potassium 4.1 Chloride 110.0 H Carbon Dioxide 20 L Anion Gap 18 BUN 4 L Creatinine 0.6 L Estimated GFR > 60 BUN/Creatinine Ratio 7 Glucose 179 H POC Glucose Calcium 9.3 Total Bilirubin 0.40 AST 19 ALT 20 Alkaline Phosphatase 56 C-Reactive Protein 3.40 H Total Protein 6.4 Albumin 3.4 L Albumin/Globulin Ratio 1.1 Lipase 29 03/26/19 03/26/19 03/27/19 16:17 22:03 04:31 WBC 9.1 RBC 3.56 L Hgb 9.8 L Hct 30.4 MCV 85 MCH 27 L MCHC 32 RDW 15.9 H Plt Count 292 Lymph % (Auto) 19.3 [place] % (Auto) 7.3 Eos % (Auto) 2.8 Baso % (Auto) 0.9 Lymph # 1.8 [place] # 0.7 Eos # 0.3 Baso # 0.1 Seg Neutrophils % 69.7 Seg Neutrophils # 6.4 Sodium Potassium Chloride Carbon Dioxide Anion Gap BUN Creatinine Estimated GFR BUN/Creatinine Ratio Glucose POC Glucose 166 H 156 H Calcium Total Bilirubin AST ALT Alkaline Phosphatase C-Reactive Protein Total Protein Albumin Albumin/Globulin Ratio Lipase 03/27/19 03/27/19 03/27/19 04:31 07:11 11:30 WBC RBC Hgb Hct MCV MCH MCHC RDW Plt Count Lymph % (Auto) [place] % (Auto) Eos % (Auto) Baso % (Auto) Lymph # [place] # Eos # Baso # Seg Neutrophils % Seg Neutrophils # Sodium 144 Potassium 4.2 Chloride 110.9 H Carbon Dioxide 22 Anion Gap 15 BUN 2 L Creatinine 0.6 L Estimated GFR > 60 BUN/Creatinine Ratio 3 Glucose 139 H POC Glucose 139 H 126 H Calcium 9.0 Total Bilirubin AST ALT Alkaline Phosphatase C-Reactive Protein Total Protein Albumin Albumin/Globulin Ratio Lipase
--- NOTE | 2019-03-27 14:27 | Progress Note ---
Assessment and Plan /Acute retroperitoneal hemorrhage - Consulted vascular surgeon, recommended to monitor the patient for next 48 hours - Plan for repeat CTA abdomen/pelvis on 03/29 /Acute hemorrhagic pancreatitis - ruled out Initial CT findings suggestive of hemorrhagic pancreatitis of pancreatic head and small gallstones, but repeat CT scan yesterday showed patient pancreas appeared to be normal but has retroperitoneal hemorrhage normal lipase levels. normal abdominal US, triglyceride levels normal, no EtOH history /SIRS with organ dysfunction -retroperitoneal hemorrhage Initially treated with IV fluid and empiric antibiotics Culture were Negative, we'll stop antibiotics today /Abdominal pain Probably secondary to the retroperitoneal hemorrhage. We will continue on analgesic medication. /Obesity, diet and exercise recommendation when clinically stable /UTI: suspected, but urine cx grew normal normal duke / DVT prophylaxis Patient placed on sequential compression device. / Full code status Brief History: This is a 64 yo female with pmh of HTN, DM, anxiety, and kidney stones admitted for abdominal pain and pancreatitis. CT abdomen and pelvis 03/26/19 1. Markedly stable hyperattenuating fluid in the retroperitoneum adjacent to the pancreatic head and second and third parts of the duodenum. There is no pancreatic necrosis or fluid collection. Infact, the pancreas appears largely normal. Although this could indicate hemorrhagic pancreatitis, other sources of retroperitoneal hemorrhage including a venous hemorrhage should be considered. There is no appreciable arterial extravasation. The hemorrhage has not increased in size from the prior study. 2. Increasing small bilateral pleural effusions. Subjective Date of service: 03/27/19 Interval history: Patient seen and examined No abdominal pain today denies any alcohol abuse tolerated full liquid but still has nausea discussed with GI, RN and with pt at bedside Objective - Exam Narrative Exam: General appearance: Present: mild distress, obese - EENT Eyes: PERRL, EOM intact ENT: hearing intact, clear oral mucosa Ears: bilateral: normal - Neck Neck: supple, normal ROM - Respiratory Respiratory effort: normal Respiratory: bilateral: CTA - Cardiovascular Rhythm: regular Heart Sounds: Present: S1 & S2. Absent: gallop, rub Extremities: pulses intact, No edema, normal color, Full ROM - Gastrointestinal General gastrointestinal: Present: soft, nontender, non-distended, normal bowel sounds - Integumentary Integumentary: clear, warm, dry - Musculoskeletal Musculoskeletal: 1, strength equal bilaterally - Neurologic Neurologic: moves all extremities - Psychiatric Psychiatric: memory intact, appropriate mood/affect, intact judgment & insight - Constitutional Vitals: Vital Signs - 12hr 03/27/19 03/27/19 03/27/19 07:26 10:00 13:31 Temperature 99.1 F 98.1 F Pulse Rate 83 80 104 H Pulse Rate [ 80 From Monitor] Respiratory 20 18 Rate Blood Pressure 172/86 124/79 O2 Sat by Pulse 94 94 93 Oximetry - Labs CBC & Chem 7: 03/27/19 04:31 03/27/19 04:31 Labs: Abnormal lab results 03/26/19 03/26/19 03/27/19 Range/Units 16:17 22:03 04:31 RBC 3.56 L (3.65-5.03) M/mm3 Hgb 9.8 L (10.1-14.3) gm/dl MCH 27 L (28-32) pg RDW 15.9 H (13.2-15.2) % Chloride (98-107) mmol/L BUN (7-17) mg/dL Creatinine (0.7-1.2) mg/dL Glucose (65-100) mg/dL POC Glucose 166 H 156 H (70-105) 03/27/19 03/27/19 03/27/19 Range/Units 04:31 07:11 11:30 RBC (3.65-5.03) M/mm3 Hgb (10.1-14.3) gm/dl MCH (28-32) pg RDW (13.2-15.2) % Chloride 110.9 H (98-107) mmol/L BUN 2 L (7-17) mg/dL Creatinine 0.6 L (0.7-1.2) mg/dL Glucose 139 H (65-100) mg/dL POC Glucose 139 H 126 H (70-105)
[2019-03-27] MEDS: traZODone 50 MG TAB PO SCH (22:43)
[2019-03-28] MEDS: ONDANSETRON 4 MG/2 ML INJ IV PRN ×2 (00:02→18:15)
[2019-03-28] MEDS: PANTOPRAZOLE 40 MG TAB PO SCH (09:52)
[2019-03-28] MEDS: ACETAMINOPHEN 325 MG TAB PO PRN (18:15)
[2019-03-28] MEDS: traZODone 50 MG TAB PO SCH (21:05)
[2019-03-29 05:07] LABS: BUN/Creatinine Ratio 12; Blood Urea Nitrogen 6 mg/dL (7-17); Calcium 9.5 mg/dL (8.4-10.2); Hemolysis Index 165
--- NOTE | 2019-03-29 09:54 | Progress Note ---
Assessment and Plan Patient appears to have had a bleed on initial presentation which has since resolved. The patient's peritoneal hematoma will take some time to resolve. From a vascular standpoint, the patient may be discharged. Would recommend that the patient not be placed on anticoagulation of any sort. Patient may follow up in our office in 2 weeks. Subjective Date of service: 03/29/19 Principal diagnosis: peritoneal bleed Interval history: Patient underwent repeat CT scan this morning. The area of hemorrhage anterior to the head of the pancreas is stable in appearance. Patient's hemoglobin is been stable since her initial bleed. Patient is complaining of less abdominal pain. Objective - Constitutional Vitals: Vital Signs - 12hr 03/28/19 03/29/19 03/29/19 23:59 02:07 07:21 Temperature 98.9 F 98.8 F Pulse Rate 90 85 97 H Respiratory 18 18 Rate Blood Pressure 125/68 129/71 O2 Sat by Pulse 93 94 Oximetry General appearance: Present: no acute distress - EENT Eyes: EOM intact ENT: hearing intact - Neck Neck: supple, normal ROM - Respiratory Respiratory effort: normal - Cardiovascular Rhythm: regular Extremities: no ischemia - Gastrointestinal General gastrointestinal: Present: soft Rectal Exam: deferred - Genitourinary Female genitourinary: deferred - Psychiatric Psychiatric: appropriate mood/affect, cooperative - Labs CBC & Chem 7: 03/27/19 04:31 03/29/19 03:35 Labs: Abnormal lab results 03/28/19 03/28/19 03/28/19 Range/Units 11: 16:44 20:40 Potassium (3.6-5.0) mmol/L Chloride (98-107) mmol/L Carbon Dioxide (22-30) mmol/L BUN (7-17) mg/dL Creatinine (0.7-1.2) mg/dL Glucose (65-100) mg/dL POC Glucose 116 H 112 H 119 H (70-105) 03/29/19 03/29/19 Range/Units 03:35 07:29 Potassium 5.4 H D (3.6-5.0) mmol/L Chloride 107.2 H (98-107) mmol/L Carbon Dioxide 21 L (22-30) mmol/L BUN 6 L (7-17) mg/dL Creatinine 0.5 L (0.7-1.2) mg/dL Glucose 119 H (65-100) mg/dL POC Glucose 123 H (70-105) Medications & Allergies - Medications Allergies/Adverse Reactions: Allergies amoxicillin [Amoxicillin] Allergy (Verified 03/31/16 19:02) Hives clarithromycin Allergy (Verified 03/31/16 19:02) Hives clindamycin Allergy (Verified 03/31/16 19:02) Hives Home Medications: Home Medications Medication Instructions Recorded Confirmed Last Taken Type Gabapentin 300 mg PO TID 09/22/14 03/24/19 09/28/14 06:30 History Levocetirizine Dihydrochloride 5 mg PO DAILY 09/22/14 03/24/19 09/27/14 19:30 History [Xyzal] Pantoprazole [Protonix TAB] 40 mg PO QDAY 09/22/14 03/24/19 09/21/14 09:00 History Pravastatin [Pravachol] 40 mg PO QHS 09/22/14 03/24/19 09/21/14 09:00 History Verapamil ER [Calan SR] 240 mg PO BIDWM 09/22/14 03/24/19 09/28/14 06:30 History Ondansetron [Zofran ODT TAB] 8 mg PO Q8HR #20 tab.rapdis 02/08/19 03/24/19 Unknown Rx Arginine [l-Arginine] 500 mg PO BID 03/24/19 03/24/19 Unknown History Azelastine/Fluticasone [Dymista 1 gm NS BID 03/24/19 03/24/19 Unknown History Nasal [place]] Cholecalciferol (Vitamin D3) 2,000 unit PO QDAY 03/24/19 03/24/19 Unknown History [Vitamin D3 2,000 UNIT CAP] Clopidogrel [Plavix] 75 mg PO QDAY 03/24/19 03/24/19 Unknown History Escitalopram [Lexapro] 20 mg PO DAILY MDD 1 1/2 03/24/19 03/24/19 Unknown History Fluticasone/Salmeterol [Advair 1 puff IH BID 03/24/19 03/24/19 Unknown History Diskus 250-50 mcg] Glucosam/Ander-Msm1/C/Neftali/Bosw 1 each PO BID 03/24/19 03/24/19 Unknown History [Osteo Bi-Flex Caplet] Loratadine 10 mg PO QDAY 03/24/19 03/24/19 Unknown History Polyethylene Glycol 3350 [Miralax 17 gm PO QDAY 03/24/19 03/24/19 Unknown History 3350] Prednisolone Acetate/Pf 5 ml OU BID 03/24/19 03/24/19 Unknown History [Prednisolone Acet 1% Eye Drop] clonazePAM 0.5 mg PO QDAY 03/24/19 03/24/19 Unknown History metFORMIN [Glucophage] 500 mg PO TID 03/24/19 03/24/19 Unknown History traZODone [Desyrel] 50 mg PO QHS 03/24/19 03/24/19 Unknown History Active Medications: Generic Name Dose Route Start Last Admin Trade Name Freq PRN Reason Stop Dose Admin Acetaminophen 650 mg 03/23/19 22:46 03/28/19 18:15 Tylenol PO 650 mg Q4H PRN Administration Pain MILD(1-3)/Fever >100.5/AKERS Hydralazine HCl 10 mg 03/24/19 21:26 03/25/19 07:35 Apresoline IV 10 mg Q6HR PRN Administration Blood Pressure Hydromorphone HCl 1 mg 03/24/19 13:21 03/25/19 14:40 Dilaudid IV 1 mg Q4H PRN Administration Pain , Severe (7-10) Levofloxacin/Dextrose 750 mg in 150 mls @ 100 mls/hr 03/24/19 18:00 03/28/19 17:34 Levaquin 750mg/150ml IV 100 mls/hr Q24H LEA Administration Protocol Ondansetron HCl 4 mg 03/27/19 23:51 03/28/19 18:15 Zofran IV 4 mg Q6H PRN Administration Nausea And Vomiting Pantoprazole Sodium 40 mg 03/25/19 10:00 03/28/19 09:52 Protonix PO 40 mg QDAY LEA Administration Sodium Chloride 10 ml 03/24/19 10:00 03/28/19 21:05 Sodium Chloride Flush Syringe 10 Ml IV 10 ml BID LEA Administration Sodium Chloride 10 ml 03/23/19 22:46 Sodium Chloride Flush Syringe 10 Ml IV PRN PRN LINE FLUSH Trazodone HCl 50 mg 03/24/19 23:00 11/16/19 21:05 Desyrel PO 50 mg QHS LEA Administration
[2019-03-29] MEDS: PANTOPRAZOLE 40 MG TAB PO SCH (10:16)
[2019-03-29] MEDS: ACETAMINOPHEN 325 MG TAB PO PRN (10:24)
--- NOTE | 2019-03-29 10:25 | Cat Scan Report ---
CTA ABDOMEN AND PELVIS HISTORY: Abdominal bleeding COMPARISON: CT of the abdomen and pelvis on 03/26/2019 and 03/23/2019. TECHNIQUE: Routine postcontrast CT angiography of the abdomen and pelvis performed. Multiplanar/MIP/3 D reformats were post-processed. All CT scans at this location are performed using CT dose reduction for ALARA by means of automated exposure control. CONTRAST: 100 ml of Omnipaque 350 FINDINGS: CTA ABDOMEN: Abdominal Aorta: No significant abnormality. Celiac and Superior Mesenteric Artery: In the region of the retroperitoneal hemorrhage adjacent to th e duodenum, there are multiple foci of contrast extravasation. The extravasation appears to be potent ially arising from the superior pancreaticoduodenal branch from the gastroduodenal artery or from the inferior pancreaticoduodenal branch. Reference images [id number] of series #3. The hemorrhage has not s ignificantly increased in size from 03/26/2019 Renal Arteries: Right: No significant abnormality. Left: No significant abnormality. Inferior Mesenteric Artery: No significant abnormality. CTA PELVIS: RIGHT: Common Iliac Artery: No significant abnormality. Internal Iliac Artery: No significant abnormality. External Iliac Artery: No significant abnormality. LEFT: Common Iliac Artery: No significant abnormality. Internal Iliac Artery: No significant abnormality. External Iliac Artery: No significant abnormality. NONTARGET STRUCTURES: ABDOMEN: GI:Sigmoid diverticulosis without diverticulitis. :No significant abnormality. Lymphatics:No significant abnormality. PELVIS: :No significant abnormality. Osseous Structures: No significant abnormality. Additional Findings: Small bilateral pleural effusions have decreased from the prior study. IMPRESSION: 1. There are some potential foci of contrast extravasation in the region of the retroperitoneal hemor rhage that appear to be arising from branch(es) of the superior pancreaticoduodenal or inferior pancr eaticoduodenal arteries. Further evaluation and potential treatment with digital subtraction angiogra phy of the abdomen should be considered. Signer Name: Johnny Hallman MD Signed: 03/29/2019 10:21 AM Workstation Name: [id number]
[2019-03-29 10:55] LABS: Hemoglobin 10.2 gm/dl (10.1-14.3)
[2019-03-29 11:00] LABS: Hematocrit 31.4 % (30.3-42.9)
[2019-03-29] MEDS ORDERED: SODIUM CHLORIDE 0.9% 500 ML 500 ML IV ONE (13:11)
--- NOTE | 2019-03-29 13:51 | Progress Note ---
Assessment and Plan /Acute retroperitoneal hemorrhage - Consulted vascular surgeon, recommended to monitor the patient for next 48 hours - Plan for repeat CTA abdomen/pelvis on 03/29 /Acute hemorrhagic pancreatitis - ruled out Initial CT findings suggestive of hemorrhagic pancreatitis of pancreatic head and small gallstones, but repeat CT scan yesterday showed patient pancreas appeared to be normal but has retroperitoneal hemorrhage normal lipase levels. normal abdominal US, triglyceride levels normal, no EtOH history /SIRS with organ dysfunction -retroperitoneal hemorrhage Initially treated with IV fluid and empiric antibiotics Culture were Negative, we'll stop antibiotics today /Abdominal pain Probably secondary to the retroperitoneal hemorrhage. We will continue on analgesic medication. /Obesity, diet and exercise recommendation when clinically stable /UTI: suspected, but urine cx grew normal normal duke / DVT prophylaxis Patient placed on sequential compression device. / Full code status Brief History: This is a 64 yo female with pmh of HTN, DM, anxiety, and kidney stones admitted for abdominal pain and pancreatitis. CT abdomen and pelvis 03/26/19 1. Markedly stable hyperattenuating fluid in the retroperitoneum adjacent to the pancreatic head and second and third parts of the duodenum. There is no pancreatic necrosis or fluid collection. Infact, the pancreas appears largely normal. Although this could indicate hemorrhagic pancreatitis, other sources of retroperitoneal hemorrhage including a venous hemorrhage should be considered. There is no appreciable arterial extravasation. The hemorrhage has not increased in size from the prior study. 2. Increasing small bilateral pleural effusions. Subjective Date of service: 03/28/19 Principal diagnosis: peritoneal bleed Interval history: Patient seen and examined No abdominal pain today denies any alcohol abuse tolerated full liquid but still has nausea discussed with GI, RN and with pt at bedside Objective - Exam Narrative Exam: General appearance: Present: mild distress, obese - EENT Eyes: PERRL, EOM intact ENT: hearing intact, clear oral mucosa Ears: bilateral: normal - Neck Neck: supple, normal ROM - Respiratory Respiratory effort: normal Respiratory: bilateral: CTA - Cardiovascular Rhythm: regular Heart Sounds: Present: S1 & S2. Absent: gallop, rub Extremities: pulses intact, No edema, normal color, Full ROM - Gastrointestinal General gastrointestinal: Present: soft, nontender, non-distended, normal bowel sounds - Integumentary Integumentary: clear, warm, dry - Musculoskeletal Musculoskeletal: 1, strength equal bilaterally - Neurologic Neurologic: moves all extremities - Psychiatric Psychiatric: memory intact, appropriate mood/affect, intact judgment & insight - Constitutional Vitals: Vital Signs - 12hr 03/29/19 03/29/19 03/29/19 02:07 07:21 10:00 Temperature 98.9 F 98.8 F Pulse Rate 85 97 H 114 H Pulse Rate [ 114 H From Monitor] Respiratory 18 18 Rate Blood Pressure 125/68 129/71 O2 Sat by Pulse 93 94 Oximetry - Labs CBC & Chem 7: 03/29/19 10:26 03/29/19 03:35 Labs: Abnormal lab results 03/28/19 03/28/19 03/29/19 Range/Units 16:44 20:40 03:35 Potassium 5.4 H D (3.6-5.0) mmol/L Chloride 107.2 H (98-107) mmol/L Carbon Dioxide 21 L (22-30) mmol/L BUN 6 L (7-17) mg/dL Creatinine 0.5 L (0.7-1.2) mg/dL Glucose 119 H (65-100) mg/dL POC Glucose 112 H 119 H (70-105) 03/29/19 03/29/19 Range/Units 07:29 11:27 Potassium (3.6-5.0) mmol/L Chloride (98-107) mmol/L Carbon Dioxide (22-30) mmol/L BUN (7-17) mg/dL Creatinine (0.7-1.2) mg/dL Glucose (65-100) mg/dL POC Glucose 123 H 257 H (70-105)
--- NOTE | 2019-03-29 13:51 | Discharge Summary ---
Providers - Providers Date of Admission: 03/23/19 22:47 Date of discharge: 03/29/19 Attending physician: KESHAWN CHRISTY 03/23/19 22:46 Consult to Physician [CONS] Routine Comment: Carrie Consulting Provider: NATTY BLAIR Physician Instructions: Consult called to dr. Blair Reason For Exam: pancreatitis 03/24/19 08:40 Physical Therapy Evaluation and Treat [CONS] Routine Comment: Reason For Exam: Weakness 03/25/19 14:53 Consult to Physician [CONS] Routine Comment: called office/ maxi Consulting Provider: SANDRA PHAN Physician Instructions: Reason For Exam: gallstone pancreatitis Primary care physician: SONIACAPE [facility] MYRA SILVA MD Hospitalization Condition: Stable Disposition: DC-30 STILL A PATIENT Core Measure Documentation - Palliative Care Palliative Care/ Comfort Measures: Not Applicable Exam - Constitutional Vitals: Temp Pulse Resp BP Pulse Ox 98.8 F 114 H 18 129/71 94 03/29/19 07:21 03/29/19 10:00 03/29/19 07:21 03/29/19 07:21 03/29/19 07:21 Plan Follow up with: BOONE MARTINEZ MD [Primary Care Provider] - 3-5 Days
[2019-03-29] MEDS: GABAPENTIN 300 MG CAP PO SCH ×2 (13:56→21:24)
[2019-03-29] MEDS: ESCITALOPRAM 10 MG TAB PO SCH (13:56)
[2019-03-29] MEDS ORDERED: CHOLECALCIFEROL (VIT D3) 1000 UNIT TAB PO SCH (14:00)
[2019-03-29] MEDS: metFORMIN 500 MG TAB PO SCH (16:35)
[2019-03-29] MEDS ORDERED: DEXTROSE 50% IN WATER (25GM) 50 ML SYRINGE IV ONE (16:43)
[2019-03-29] MEDS ORDERED: SODIUM BICARB 8.4% 50 MEQ/50 ML SYRINGE IV ONE (16:43)
[2019-03-29] MEDS ORDERED: SODIUM POLYSTYRENE 15 GM/60 ML ORAL LIQD PO ONE (16:43)
[2019-03-29] MEDS ORDERED: INSULIN REGULAR, HUMAN 100 UNITS/1 ML SUB-Q ONE (16:45)
--- NOTE | 2019-03-29 16:46 | Progress Note ---
Assessment and Plan /Acute retroperitoneal hemorrhage - Consulted vascular surgeon, recommended to monitor the patient for next 48 hours - repeat CTA abdomen/pelvis obtained today - plan for angiogram tomorrow /Acute hemorrhagic pancreatitis - ruled out Initial CT findings suggestive of hemorrhagic pancreatitis of pancreatic head and small gallstones, but repeat CT scan yesterday showed patient pancreas appeared to be normal but has retroperitoneal hemorrhage normal lipase levels. normal abdominal US, triglyceride levels normal, no EtOH history /SIRS with organ dysfunction -retroperitoneal hemorrhage Initially treated with IV fluid and empiric antibiotics Culture were Negative, off antibiotics /Abdominal pain Probably secondary to the retroperitoneal hemorrhage. We will continue on analgesic medication. /Obesity, diet and exercise recommendation when clinically stable /UTI: suspected, but urine cx grew normal normal duke /Dm type 2, cont SSI /Hyperkalemia - will give kayexalate, insulin/d50, calcium gluconate - monitor bmp / DVT prophylaxis Patient placed on sequential compression device. / Full code status Brief History: This is a 64 yo female with pmh of HTN, DM, anxiety, and kidney stones admitted for abdominal pain and pancreatitis. CT abdomen and pelvis 03/26/19 1. Markedly stable hyperattenuating fluid in the retroperitoneum adjacent to the pancreatic head and second and third parts of the duodenum. There is no pancreatic necrosis or fluid collection. Infact, the pancreas appears largely normal. Although this could indicate hemorrhagic pancreatitis, other sources of retroperitoneal hemorrhage including a venous hemorrhage should be considered. T here is no appreciable arterial extravasation. The hemorrhage has not increased in size from the prior study. 2. Increasing small bilateral pleural effusions. Subjective Date of service: 03/29/19 Principal diagnosis: peritoneal bleed Interval history: Patient seen and examined No abdominal pain today tolerated regular diet discussed with GI, RN and with pt at bedside Objective - Exam Narrative Exam: General appearance: Present: mild distress, obese - EENT Eyes: PERRL, EOM intact ENT: hearing intact, clear oral mucosa Ears: bilateral: normal - Neck Neck: supple, normal ROM - Respiratory Respiratory effort: normal Respiratory: bilateral: CTA - Cardiovascular Rhythm: regular Heart Sounds: Present: S1 & S2. Absent: gallop, rub Extremities: pulses intact, No edema, normal color, Full ROM - Gastrointestinal General gastrointestinal: Present: soft, nontender, non-distended, normal bowel sounds - Integumentary Integumentary: clear, warm, dry - Musculoskeletal Musculoskeletal: 1, strength equal bilaterally - Neurologic Neurologic: moves all extremities - Psychiatric Psychiatric: memory intact, appropriate mood/affect, intact judgment & insight - Constitutional Vitals: Vital Signs - 12hr 03/29/19 03/29/19 03/29/19 07:21 10:00 12:57 Temperature 98.8 F 98.3 F Pulse Rate 97 H 114 H 105 H Pulse Rate [ 114 H From Monitor] Respiratory 18 18 Rate Blood Pressure 129/71 106/67 O2 Sat by Pulse 94 93 Oximetry - Labs CBC & Chem 7: 03/29/19 10:26 03/30/19 04:13 Labs: Abnormal lab results 03/28/19 03/29/19 03/29/19 Range/Units 20:40 03:35 07:29 Potassium 5.4 H D (3.6-5.0) mmol/L Chloride 107.2 H (98-107) mmol/L Carbon Dioxide 21 L (22-30) mmol/L BUN 6 L (7-17) mg/dL Creatinine 0.5 L (0.7-1.2) mg/dL Glucose 119 H (65-100) mg/dL POC Glucose 119 H 123 H (70-105) 03/29/19 03/29/19 03/29/19 Range/Units 11:27 15:08 16:43 Potassium 5.6 H (3.6-5.0) mmol/L Chloride (98-107) mmol/L Carbon Dioxide (22-30) mmol/L BUN (7-17) mg/dL Creatinine (0.7-1.2) mg/dL Glucose (65-100) mg/dL POC Glucose 257 H 107 H (70-105)
[2019-03-29] MEDS: INSULIN REGULAR, HUMAN 100 UNITS/1 ML SUB-Q SCH ×2 (16:47→21:49)
[2019-03-29] MEDS ORDERED: BUDESONIDE 0.5 MG/2 ML NEBU IH SCH (20:00)
[2019-03-29] MEDS: traZODone 50 MG TAB PO SCH (21:24)
[2019-03-29] MEDS: PRAVASTATIN 40 MG TAB PO SCH (21:24)
[2019-03-29] MEDS: ARFORMOTEROL 15 MCG/2 ML NEBU IH SCH (21:36)
[2019-03-29] MEDS: BUDESONIDE 0.5 MG/2 ML NEBU IH SCH (21:36)
[2019-03-29] MEDS ORDERED: NON-FORMULARY EACH (Fluticasone/Salmeterol [Advair Diskus 250-50 Mcg] 1 PUFF) IH SCH (22:00)
[2019-03-30 05:26] LABS: BUN/Creatinine Ratio 16; Blood Urea Nitrogen 8 mg/dL (7-17); Calcium 8.9 mg/dL (8.4-10.2); Hemolysis Index 3
[2019-03-30] MEDS: INSULIN REGULAR, HUMAN 100 UNITS/1 ML SUB-Q SCH ×4 (07:09→22:18)
[2019-03-30] MEDS: metFORMIN 500 MG TAB PO SCH (07:10)
[2019-03-30] MEDS ORDERED: HEPARIN/NS 5000 UNIT/500ML 1,000 ML IR ONE (08:46)
[2019-03-30] MEDS ORDERED: HEPARIN 10,000 UNITS/10 ML VIAL ONE (08:47)
[2019-03-30] MEDS ORDERED: ceFAZolin/Water 2 GM/20 ML 2 GM/20 ML SYRINGE IV ONE (08:48)
[2019-03-30] MEDS: BUDESONIDE 0.5 MG/2 ML NEBU IH SCH ×3 (08:59→21:16)
[2019-03-30] MEDS: ARFORMOTEROL 15 MCG/2 ML NEBU IH SCH ×3 (08:59→21:16)
[2019-03-30] MEDS ORDERED: SODIUM CHLORIDE 0.9% 500 ML 500 ML ONE (09:19)
[2019-03-30] MEDS: MIDAZOLAM 2 MG/2 ML INJ ONE ×3 (09:45→11:57)
[2019-03-30] MEDS: fentaNYL 100 MCG/2 ML INJ ONE ×3 (09:45→11:57)
[2019-03-30] MEDS: LIDOCAINE 1%/EPINEPHRINE 1:100,000 VIAL (20 ML) INFILTRATI ONE ×2 (09:49→09:52)
[2019-03-30] MEDS: GABAPENTIN 300 MG CAP PO SCH ×3 (09:52→22:13)
[2019-03-30] MEDS ORDERED: GELATIN SPONGE SIZE 50 TP ONE (10:00)
[2019-03-30] MEDS ORDERED: NON-FORMULARY EACH (Cholecalciferol (Vitamin D3) [Vitamin D3 2,000 Unit Cap] 2,000 UNIT) PO SCH (10:00)
[2019-03-30] MEDS: POTASSIUM CHLORIDE 10 MEQ 10 MEQ/100 ML BAG IV SCH ×3 (12:56→15:18)
--- NOTE | 2019-03-30 13:01 | Post Operative Note ---
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 Ultrasound guided access of the right common femoral artery 2. Angiography of the right lower extremity 3. Selection of the SMA with angiography 4. Selection of the celiac artery with angiography 5. Selection of the splenic artery with angiography 6. Selection of the inferior pancreaticoduodenal artery, posterior branch, with angiography 7. Selection of the inferior pancreaticoduodenal artery, anterior branch, with angiography 8. Coil embolization with a 6 mm x 20 mm interlock and 5 mm x 15 mm interlock of the mid portion of the anterior branch of the pancreaticoduodenal artery 9. Closure of the right common femoral artery with a 6 Fr proglide Anesthesia: local (w/ conscious seddation) Surgeon: MAGALY CAREY Estimated blood loss: minimal Condition: stable Disposition: floor
[2019-03-30] MEDS: PANTOPRAZOLE 40 MG TAB PO SCH (13:03)
[2019-03-30] MEDS: CHOLECALCIFEROL (VIT D3) 1000 UNIT TAB PO SCH (13:04)
[2019-03-30] MEDS: ESCITALOPRAM 10 MG TAB PO SCH (13:04)
--- NOTE | 2019-03-30 13:10 | Event Note ---
Date: 03/30/19 Reviewed prior imaging and current imaging. The patient currently has a left gastric artery aneurysm and irregularity/abnormal flow of a branch of the anterior division of the pancreaticoduodenal artery with surrounding blood on CT compatible with prior rupture of the vessel. The celiac artery has post-stenotic dilatation and severe stenosis (median arcuate ligament) with compensatory flow through the pancreaticoduodenal arteries from the SMA to the celiac artery. In this situation, the compensatory flow can develop aneurysmal disease of the pancreaticoduodenal arteries and spontaneous or induced (pancreatitis) pancreaticoduodenal rupture can occur. However, the left gastric artery aneurysm is also present, which is concerning for vasculitis (?segmental arterial mediolysis vs other vasculitis). Except for the celiac artery stenosis/post-stenotic dilatation, upon my review of the iamging, I did not see currently visualized aneurysmal disease. The branch of the pancreaticoduodenal artery could not be cathererized and therefore the base vessel at the ostium was coiled. Patient will need repeat imaging in 2-3 days with CTA to reassess this area. After discussion with general surgery I decided it would be optimal to transfer the patient in order to expedite vasculitis workup.
--- NOTE | 2019-03-30 13:17 | Operative Report ---
Operative Report Operative Report: EXAM: 1. Ultrasound guided access of the right common femoral artery 2. Angiography of the right lower extremity 3. Selection of the SMA with angiography 4. Selection of the celiac artery with angiography 5. Selection of the splenic artery with angiography 6. Selection of the inferior pancreaticoduodenal artery, posterior branch, with angiography 7. Selection of the inferior pancreaticoduodenal artery, anterior branch, with angiography 8. Coil embolization with a 6 mm x 20 mm interlock and 5 mm x 15 mm interlock of the mid portion of the anterior branch of the pancreaticoduodenal artery 9. Closure of the right common femoral artery with a 6 Fr proglide DATE: 03/30/19 [employer]: MAGALY CAREY MD INDICATION: Pancreatic hemorrhage with possible extravasation visualized on CT angiogram. MEDICATIONS: Please see nursing report for full details. DEVICES: 6 mm x 20 mm interlock coil ; 5 mm x 15 mm interlock coil CONTRAST: Please see pathology laboratory technologist report for full details PROCEDURE: Risks, benefits, and alternatives were discussed with the patient; written informed consent was obtained. The patient was brought to the angiography suite and prepped and draped in a sterile fashion. Ultrasound was used to identify the right common femoral artery which was patent. Under direct ultrasound guidance, the right common femoral artery was accessed with a 21-gauge Stoney puncture needle. 0.018 inch wire was passed into the aorta. Needle was exchanged for transitional dilator. Wire was exchanged for 0.035 inch wire. Transitional dilator was exchanged for 5 Syriac sheath. Digital subtraction angiography was performed demonstrating an appropriate puncture, above the bifurcation and below the inferior epigastric artery. The right external iliac artery, common femoral artery, proximal superficial femoral artery, and profunda femoral artery are patent. Wylie 1 catheter was formed over the aortoiliac bifurcation with the use of a SOS catheter. Catheter was used to select the SMA and digital subtraction angiography was performed demonstrating significant hypertrophy of the inferior pancreaticoduodenal arteries which then extended into the hypertrophic pancreaticoduodenal arteries (anterior and posterior division) and then to the superior pancreaticoduodenal artery and then into the gastroduodenal artery. Arterial flow then passed into the proper hepatic artery and the hepatic arteries. Off of the anterior division of the pancreaticoduodenal artery, flow into an irregular vessel with sluggish flow compatible with an irregular, partially thrombosed branch of the pancreaticoduodenal artery. The celiac artery was then selected and digital subtraction angiography demonstrated severe poststenotic dilatation with mild aneurysmal change of the distal celiac artery with a patent splenic artery, and common hepatic artery. The left gastric artery had irregularity and degenerative aneurysmal or pseudoaneurysmal change approximately 10 cm from the origin of the vessel. I use selected the celiac artery with both the SIM 1 glide and SIM 1 catheter, and despite enough purchase in the hepatic arteries with a Glidewire, I could not pass the catheter into the common hepatic artery as it would recoil into the aneurysmal celiac artery or splenic artery. I believed I required purchase in the common hepatic artery in order to catheterize the superior pancreaticoduodenal artery. I ultimately used to and exchange length Glidewire and exchanged his Wylie 1 catheter for a C2 glide catheter, but the catheter would not passed through the stenotic celiac artery ostium. During these exchanges, the splenic artery was selected and digital subtraction angiography was performed demonstrating patency of the splenic artery. I then used to C2 glide catheter with a Glidewire to select the inferior pancreaticoduodenal artery, posterior division. Digital subtraction angiography was performed confirming that this vessel was patent and there was no flow into the irregular branch of the pancreaticoduodenal artery from this vessel. I then selected the inferior pancreaticoduodenal artery, anterior division and digital subtraction angiography was performed confirming flow into the irregular branch of this vessel. Unfortunately, this vessel arose at a 180 takeoff at the midportion of this vessel. I passed the C2 glide catheter to the midportion of the vessel and perform digital subtraction angiography demonstrating the irregular branch 2 cm from the catheter. I then used a DIREXTION J TIPPED microcatheter with a Transcend wire and Choice PT floppy wire to attempt to select the irregular vessel with the microcatheter. I was able to select the vessel with a wire, but the microcatheter would not pass into the vessel due to the tortuosity. Given the severe tortuosity, I decided to perform coil embolization of the base vessel proximal and distal to the ostial takeoff of the irregular branch vessel in order to occlude this vessel. I had previously demonstrated that the posterior branch of the pancreaticoduodenal artery provided flow to the gastroduodenal artery. Coil embolization was then performed with a renegade ST microcatheter using 6 mm x 20 cm interlock coil and 5 mm x 15 cm interlock coil across the ostium of the irregular branch vessel. Intermittent digital subtraction angiography was performed demonstrating progressively more sluggish flow into the irregular branch vessel with near stasis at the completion of the angiogram. At this point, all catheters were removed and sheath was exchanged over a 0.035 inch wire for a Pro-glide device. Pro-glide was used and near immediate hemostasis was achieved. Sterile dressing and pressure dressing applied. Patient tolerated the procedure well. No immediate postprocedural complication. FINDINGS: Please see procedure note above. IMPRESSION: 1. Successful coil embolization across the irregular branch of the pancreaticoduodenal artery. 2. 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 3. Irregular aneurysmal fusiform dilatation of the left gastric artery which is approximately 5-6 mm over a 1-2 cm length.
--- NOTE | 2019-03-30 14:35 | Progress Note ---
Assessment and Plan /Acute retroperitoneal hemorrhage - Consulted vascular surgeon, recommended to monitor the patient for next 48 hours - repeat CTA abdomen/pelvis obtained - s/p angiogram today with Coil embolization of the mid portion of the anterior branch of the pancreaticoduodenal artery. Also showed left gastric artery aneurysm - Vascular recommended to transfer the patient to [place] - accepted by Dr Montilla - patient will be transferred to [place] tomorrow am /Acute hemorrhagic pancreatitis - ruled out Initial CT findings suggestive of hemorrhagic pancreatitis of pancreatic head and small gallstones, but repeat CT scan yesterday showed patient pancreas appeared to be normal but has retroperitoneal hemorrhage normal lipase levels. normal abdominal US, triglyceride levels normal, no EtOH history /SIRS with organ dysfunction -retroperitoneal hemorrhage Initially treated with IV fluid and empiric antibiotics Culture were Negative, off antibiotics /Abdominal pain Probably secondary to the retroperitoneal hemorrhage. We will continue on anal gesic medication. /Obesity, diet and exercise recommendation when clinically stable /UTI: suspected, but urine cx grew normal normal [facility] /DM type 2, cont SSI /Hyperkalemia - s/p give kayexalate, insulin/d50, calcium gluconate /HYPOKALEMIA, REPLETE / DVT prophylaxis Patient placed on sequential compression device. / Full code status Brief History: This is a 64 yo female with pmh of HTN, DM, anxiety, and kidney stones admitted for abdominal pain, CT abdomen showed hemorrhagic pancreatitis. Monitored clinically, advanced diet, repeated CT for f/u but showed retroperitoneum hematoma. Vascular consulted, recommended repeat CTA on Saturday. Repeat CTA showed extravagation of contrast. s/p angiogram today with coiling of mid portion of the anterior branch of the pancreaticoduodenal artery. Patient also has left gastric artery aneurysm, plan to transfer the patient to [facility]. CT abdomen and pelvis 03/26/19 1. Markedly stable hyperattenuating fluid in the retroperitoneum adjacent to the pancreatic head and second and third parts of the duodenum. There is no pancreatic necrosis or fluid collection. Infact, the pancreas appears largely normal. Although this could indicate hemorrhagic pancreatitis, other sources of retroperitoneal hemorrhage including a venous hemorrhage should be considered. There is no appreciable arterial extravasation. The hemorrhage has not increased in size from the prior study. 2. Increasing small bilateral pleural effusions. Subjective Date of service: 03/30/19 Principal diagnosis: peritoneal bleed Interval history: Patient seen and examined No abdominal pain today s/p angiogram today discussed with GI, RN and with pt at bedside Objective - Exam Narrative Exam: General appearance: Present: mild distress, obese - EENT Eyes: PERRL, EOM intact ENT: hearing intact, clear oral mucosa Ears: bilateral: normal - Neck Neck: supple, normal ROM - Respiratory Respiratory effort: normal Respiratory: bilateral: CTA - Cardiovascular Rhythm: regular Heart Sounds: Present: S1 & S2. Absent: gallop, rub Extremities: pulses intact, No edema, normal color, Full ROM - Gastrointestinal General gastrointestinal: Present: soft, nontender, non-distended, normal bowel sounds - Integumentary Integumentary: clear, warm, dry - Musculoskeletal Musculoskeletal: 1, strength equal bilaterally - Neurologic Neurologic: moves all extremities - Psychiatric Psychiatric: memory intact, appropriate mood/affect, intact judgment & insight - Constitutional Vitals: Vital Signs - 12hr 03/30/19 03/30/19 03/30/19 07:15 07:27 07:28 Temperature 97.6 F Pulse Rate 112 H Pulse Rate [ 112 H From Monitor] Pulse Rate [ Posterior Bilateral] Respiratory 18 Rate Respiratory Rate [Posterior Bilateral] Blood Pressure 152/96 O2 Sat by Pulse 95 95 Oximetry 03/30/19 13:51 Temperature Pulse Rate Pulse Rate [ From Monitor] Pulse Rate [ 83 Posterior Bilateral] Respiratory Rate Respiratory 14 Rate [Posterior Bilateral] Blood Pressure O2 Sat by Pulse Oximetry - Labs CBC & Chem 7: 03/29/19 10:26 03/30/19 04:13 Labs: Abnormal lab results 03/29/19 03/29/19 03/29/19 Range/Units 15:08 16:43 21:46 Potassium 5.6 H (3.6-5.0) mmol/L Creatinine (0.7-1.2) mg/dL Glucose (65-100) mg/dL POC Glucose 107 H 127 H (70-105) 03/30/19 03/30/19 Range/Units 04:13 07:09 Potassium 3.0 L D (3.6-5.0) mmol/L Creatinine 0.5 L (0.7-1.2) mg/dL Glucose 135 H (65-100) mg/dL POC Glucose 129 H (70-105)
[2019-03-30] MEDS ORDERED: POTASSIUM CHLORIDE ER 20 MEQ TAB PO ONE (16:30)
[2019-03-30] MEDS: PRAVASTATIN 40 MG TAB PO SCH (22:13)
[2019-03-30] MEDS: traZODone 50 MG TAB PO SCH (22:13)
[2019-03-31 05:29] LABS: Hematocrit 30.4 % (30.3-42.9); Hemoglobin 9.8 gm/dl (10.1-14.3)
[2019-03-31 05:44] LABS: BUN/Creatinine Ratio 12; Blood Urea Nitrogen 6 mg/dL (7-17); Calcium 9.3 mg/dL (8.4-10.2); Hemolysis Index 1
[2019-03-31] MEDS: GABAPENTIN 300 MG CAP PO SCH ×3 (08:15→14:00)
[2019-03-31] MEDS: INSULIN REGULAR, HUMAN 100 UNITS/1 ML SUB-Q SCH ×2 (08:15→12:55)
[2019-03-31] MEDS: ESCITALOPRAM 10 MG TAB PO SCH (09:28)
[2019-03-31] MEDS: PANTOPRAZOLE 40 MG TAB PO SCH (09:28)
[2019-03-31] MEDS: CHOLECALCIFEROL (VIT D3) 1000 UNIT TAB PO SCH (09:28)
[2019-03-31] MEDS: BUDESONIDE 0.5 MG/2 ML NEBU IH SCH (09:37)
[2019-03-31] MEDS: ARFORMOTEROL 15 MCG/2 ML NEBU IH SCH (09:37)
[2019-03-31 14:04] VITALS: BP 144/88
--- NOTE | 2019-03-31 16:21 | Progress Note ---
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 Also patient has a irregular left gastric artery aneurysm/pseudoaneurysm. Unclear if this represents median arcuate ligament syndrome with hypertrophy of the pancreaticoduodenal arcade with rupture of one of the pancreaticoduodenal vessels with possible anomalous collateralization through the gastric arteries resulting in a second aneurysm of the left gastric artery versus vasculitis. After coil embolization of part of the pancreaticoduodenal artery, the flow t hrough the irregular vessel became quite sluggish. Recommend CT angiogram in the next 48 hours to reassess the peripancreatic irregular vessel. Patient will need rheumatology evaluation that is unavailable at [facility], patient will ultimately need median arcuate ligament re lease with celiac artery stenting versus reconstruction, and embolization of the left gastric artery. Patient being transfer to [place]. Subjective Date of service: 03/31/19 Principal diagnosis: peritoneal bleed Interval history: Mild mid abdominal discomfort. Right groin feels fine. Palpable pedal pulses. No nausea or vomiting. Ambulatory. H&H stable. Objective - Constitutional Vitals: Vital Signs - 12hr 03/31/19 03/31/19 07:18 13:54 Temperature 97.4 F L 98.6 F Pulse Rate 116 H 102 H Respiratory 18 18 Rate Blood Pressure 132/91 144/88 O2 Sat by Pulse 94 95 Oximetry General appearance: Present: no acute distress - EENT Eyes: EOM intact ENT: hearing intact - Respiratory Respiratory effort: normal Extremities: pulses intact, normal temperature, normal color - Gastrointestinal General gastrointestinal: Present: tender (mid abdominal) - Psychiatric Psychiatric: appropriate mood/affect, cooperative - Labs CBC & Chem 7: 03/31/19 04:03 03/31/19 04:03 Labs: Abnormal lab results 03/30/19 03/30/19 03/31/19 Range/Units 16:11 22:27 04:03 Hgb 9.8 L (10.1-14.3) gm/dl Sodium (137-145) mmol/L Chloride (98-107) mmol/L BUN (7-17) mg/dL Creatinine (0.7-1.2) mg/dL Glucose (65-100) mg/dL POC Glucose 111 H 138 H (70-105) 03/31/19 03/31/19 03/31/19 Range/Units 04:03 07:25 11:21 Hgb (10.1-14.3) gm/dl Sodium 146 H (137-145) mmol/L Chloride 108.2 H (98-107) mmol/L BUN 6 L (7-17) mg/dL Creatinine 0.5 L (0.7-1.2) mg/dL Glucose 134 H (65-100) mg/dL POC Glucose 173 H 188 H (70-105) Medications & Allergies - Medications Allergies/Adverse Reactions: Allergies amoxicillin [Amoxicillin] Allergy (Verified 03/31/16 19:02) Hives clarithromycin Allergy (Verified 03/31/16 19:02) Hives clindamycin Allergy (Verified 03/31/16 19:02) Hives Home Medications: Home Medications Medication Instructions Recorded Confirmed Last Taken Type Gabapentin 300 mg PO TID 09/22/14 03/24/19 09/28/14 06:30 History Levocetirizine Dihydrochloride 5 mg PO DAILY 09/22/14 03/24/19 09/27/14 19:30 History [Xyzal] Pantoprazole [Protonix TAB] 40 mg PO QDAY 09/22/14 03/24/19 09/21/14 09:00 History Pravastatin [Pravachol] 40 mg PO QHS 09/22/14 03/24/19 09/21/14 09:00 History Verapamil ER [Calan SR] 240 mg PO BIDWM 09/22/14 03/24/19 09/28/14 06:30 History Ondansetron [Zofran ODT TAB] 8 mg PO Q8HR #20 tab.rapdis 02/08/19 03/24/19 Unknown Rx Arginine [l-Arginine] 500 mg PO BID 03/24/19 03/24/19 Unknown History Azelastine/Fluticasone [Dymista 1 gm NS BID 03/24/19 03/24/19 Unknown History Nasal [place]] Cholecalciferol (Vitamin D3) 2,000 unit PO QDAY 03/24/19 03/24/19 Unknown History [Vitamin D3 2,000 UNIT CAP] Clopidogrel [Plavix] 75 mg PO QDAY 03/24/19 03/24/19 Unknown History Escitalopram [Lexapro] 20 mg PO DAILY MDD 1 1/2 03/24/19 03/24/19 Unknown History Fluticasone/Salmeterol [Advair 1 puff IH BID 03/24/19 03/24/19 Unknown History Diskus 250-50 mcg] Glucosam/Ander-Msm1/C/Neftali/Bosw 1 each PO BID 03/24/19 03/24/19 Unknown History [Osteo Bi-Flex Caplet] Loratadine 10 mg PO QDAY 03/24/19 03/24/19 Unknown History Polyethylene Glycol 3350 [Miralax 17 gm PO QDAY 03/24/19 03/24/19 Unknown History 3350] Prednisolone Acetate/Pf 5 ml OU BID 03/24/19 03/24/19 Unknown History [Prednisolone Acet 1% Eye Drop] clonazePAM 0.5 mg PO QDAY 03/24/19 03/24/19 Unknown History metFORMIN [Glucophage] 500 mg PO TID 03/24/19 03/24/19 Unknown History traZODone [Desyrel] 50 mg PO QHS 03/24/19 03/24/19 Unknown History Active Medications: Generic Name Dose Route Start Last Admin Trade Name Freq PRN Reason Stop Dose Admin Acetaminophen 650 mg 03/23/19 22:46 03/29/19 10:24 Tylenol PO 650 mg Q4H PRN Administration Pain MILD(1-3)/Fever >100.5/AKERS Arformoterol Tartrate 15 mcg 03/29/19 20:00 03/31/19 09:37 Brovana Nebu IH 15 mcg Q12HRT LEA Administration Budesonide 0.5 mg 03/29/19 20:00 03/31/19 09:37 Pulmicort IH 0.5 mg Q12HRT LEA Administration Cholecalciferol 2,000 unit 03/30/19 10:00 03/31/19 09:28 Vitamin D3 PO 2,000 unit QDAY LEA Administration Escitalopram Oxalate 20 mg 03/29/19 14:00 03/31/19 09:28 Lexapro PO 20 mg DAILY LEA Administration Gabapentin 300 mg 03/29/19 14:00 03/31/19 14:00 Gabapentin PO Not Given TID LEA Hydralazine HCl 10 mg 03/24/19 21:26 03/25/19 07:35 Apresoline IV 10 mg Q6HR PRN Administration Blood Pressure Hydromorphone HCl 1 mg 03/24/19 13:21 03/25/19 14:40 Dilaudid IV 1 mg Q4H PRN Administration Pain , Severe (7-10) Insulin Human Regular 0 units 03/29/19 16:30 03/31/19 12:55 Humulin R SUB-Q 1 units ACHS LEA Administration Protocol Ondansetron HCl 4 mg 03/27/19 23:51 03/28/19 18:15 Zofran IV 4 mg Q6H PRN Administration Nausea And Vomiting Pantoprazole Sodium 40 mg 03/25/19 10:00 03/31/19 09:28 Protonix PO 40 mg QDAY LEA Administration Pravastatin Sodium 40 mg 03/29/19 22:00 03/30/19 22:13 Pravachol PO 40 mg QHS LEA Administration Sodium Chloride 10 ml 03/24/19 10:00 03/31/19 09:28 Sodium Chloride Flush Syringe 10 Ml IV 10 ml BID LEA Administration Sodium Chloride 10 ml 03/23/19 22:46 Sodium Chloride Flush Syringe 10 Ml IV PRN PRN LINE FLUSH Trazodone HCl 50 mg 03/24/19 23:00 03/30/19 22:13 Desyrel PO 50 mg QHS LEA Administration
--- NOTE | 2019-03-31 16:49 | Progress Note ---
Assessment and Plan Assessment and plan: /Acute retroperitoneal hemorrhage - repeat CTA abdomen/pelvis obtained - s/p angiogram today with Coil e mbolization of the mid portion of the anterior branch of the pancreaticoduodenal artery. Also showed left gastric artery aneurysm - Vascular recommended to transfer the patient to [place] - accepted by Dr Montilla - patient will be transferred to [place] when bed becomes available /Acute hemorrhagic pancreatitis - ruled out Initial CT findings suggestive of hemorrhagic pancreatitis of pancreatic head a nd small gallstones, but repeat CT scan yesterday showed patient pancreas appeared to be normal but has retroperitoneal hemorrhage normal lipase levels. normal abdominal US, triglyceride levels normal, no EtOH history /SIRS due to non-infectious cause with organ dysfunction (retroperitoneal hemorrhage) Initially treated with IV fluid and empiric antibiotics Culture were Negative, off antibiotics /Abdominal pain Probably secondary to the retroperitoneal hemorrhage. We will continue on analgesic medication. /Obesity with BMI of 32.4 lifestyle modification recommendation /UTI: suspected, but urine cx grew normal normal duke /DM type 2, stable cont SSI /Hyperkalemia s/p give kayexalate, insulin/d50, calcium gluconate, resolved /Hypokalemia Repleted and resolved Hypernatremia Increased oral fluid intake encouraged, will monitor / DVT prophylaxis sequential compression device. Disposition: Awaiting transfer to [facility] when bed becomes available History Interval history: Patient has no new complaints. She denies chest pain or shortness of breath. Hospitalist Physical - Constitutional Vitals: Temp Pulse Resp BP Pulse Ox 98.6 F 102 H 18 144/88 95 03/31/19 13:54 03/31/19 13:54 03/31/19 13:54 03/31/19 13:54 03/31/19 13:54 General appearance: Present: no acute distress - EENT Eyes: Present: PERRL, EOM intact ENT: hearing intact, clear oral mucosa - Neck Neck: Present: supple - Respiratory Respiratory effort: normal Respiratory: bilateral: CTA - Cardiovascular Rhythm: regular (with tachycardia) Heart Sounds: Present: S1 & S2 - Extremities Extremities: No edema - Abdominal General gastrointestinal: soft, non-tender, normal bowel sounds - Integumentary Integumentary: Present: warm, dry - Psychiatric Psychiatric: appropriate mood/affect - Neurologic Neurologic: CNII-XII intact Results - Labs CBC & Chem 7: 03/31/19 04:03 03/31/19 04:03 Labs: Laboratory Last Values WBC 9.1 K/mm3 (4.5-11.0) 03/27/19 04:31 RBC 3.56 M/mm3 (3.65-5.03) L 03/27/19 04:31 Hgb 9.8 gm/dl (10.1-14.3) L 03/31/19 04:03 Hct 30.4 % (30.3-42.9) 03/31/19 04:03 MCV 85 fl (79-97) 03/27/19 04:31 MCH 27 pg (28-32) L 03/27/19 04:31 MCHC 32 % (30-34) 03/27/19 04:31 RDW 15.9 % (13.2-15.2) H 03/27/19 04:31 Plt Count 292 K/mm3 (140-440) 03/27/19 04:31 Lymph % (Auto) 19.3 % (13.4-35.0) 03/27/19 04:31 [place] % (Auto) 7.3 % (0.0-7.3) 03/27/19 04:31 Eos % (Auto) 2.8 % (0.0-4.3) 03/27/19 04:31 Baso % (Auto) 0.9 % (0.0-1.8) 03/27/19 04:31 Lymph # 1.8 K/mm3 (1.2-5.4) 03/27/19 04:31 [place] # 0.7 K/mm3 (0.0-0.8) 03/27/19 04:31 Eos # 0.3 K/mm3 (0.0-0.4) 03/27/19 04:31 Baso # 0.1 K/mm3 (0.0-0.1) 03/27/19 04:31 Seg Neutrophils % 69.7 % (40.0-70.0) 03/27/19 04:31 Seg Neutrophils # 6.4 K/mm3 (1.8-7.7) 03/27/19 04:31 PT 13.4 Sec. (12.2-14.9) 03/24/19 03:32 INR 1.03 (0.87-1.13) 03/24/19 03:32 APTT 26.1 Sec. (24.2-36.6) 03/24/19 03:32 Sodium 146 mmol/L (137-145) H 03/31/19 04:03 Potassium 3.8 mmol/L (3.6-5.0) D 03/31/19 04:03 Chloride 108.2 mmol/L (98-107) H 03/31/19 04:03 Carbon Dioxide 27 mmol/L (22-30) 03/31/19 04:03 Anion Gap 15 mmol/L 03/31/19 04:03 BUN 6 mg/dL (7-17) L 03/31/19 04:03 Creatinine 0.5 mg/dL (0.7-1.2) L 03/31/19 04:03 Estimated GFR > 60 ml/min 03/31/19 04:03 BUN/Creatinine Ratio 12 % 03/31/19 04:03 Glucose 134 mg/dL (65-100) H 03/31/19 04:03 POC Glucose 96 (70-105) 03/31/19 16:16 Lactic Acid 1.80 mmol/L (0.7-2.0) 03/23/19 20:03 Lactic Acid 1.90 mmol/L (0.7-2.0) 03/23/19 20:03 Calcium 9.3 mg/dL (8.4-10.2) 03/31/19 04:03 Total Bilirubin 0.40 mg/dL (0.1-1.2) 03/26/19 13:24 AST 19 units/L (5-40) 03/26/19 13:24 ALT 20 units/L (7-56) 03/26/19 13:24 Alkaline Phosphatase 56 units/L (35-129) 03/26/19 13:24 C-Reactive Protein 3.40 mg/dL (0.00-1.30) H 03/26/19 13:24 Total Protein 6.4 g/dL (6.3-8.2) 03/26/19 13:24 Albumin 3.4 g/dL (3.9-5) L 03/26/19 13:24 Albumin/Globulin Ratio 1.1 % 03/26/19 13:24 Triglycerides 103 mg/dL (2-149) 03/24/19 16:10 Lipase 29 units/L (13-60) 03/26/19 13:24 Urine Color Yellow (Yellow) 03/24/19 01:40 Urine Turbidity Slightly-cloudy (Clear) 03/24/19 01:40 Urine pH 5.0 (5.0-7.0) 03/24/19 01:40 Ur Specific [place] 1.040 (1.003-1.030) H 03/24/19 01:40 Urine Protein 30 mg/dl mg/dL (Negative) 03/24/19 01:40 Urine Glucose (UA) Neg mg/dL (Negative) 03/24/19 01:40 Urine Ketones Neg mg/dL (Negative) 03/24/19 01:40 Urine Blood Neg (Negative) 03/24/19 01:40 Urine Nitrite Neg (Negative) 03/24/19 01:40 Urine Bilirubin Neg (Negative) 03/24/19 01:40 Urine Urobilinogen < 2.0 mg/dL (<2.0) 03/24/19 01:40 Ur Leukocyte Esterase Lg (Negative) 03/24/19 01:40 Urine WBC (Auto) 76.0 /HPF (0.0-6.0) H 03/24/19 01:40 Urine RBC (Auto) 5.0 /HPF (0.0-6.0) 03/24/19 01:40 U Epithel Cells (Auto) 7.0 /HPF (0-13.0) 03/24/19 01:40 Urine Bacteria (Auto) 1+ /HPF (Negative) 03/24/19 01:40 Urine Mucus Few /HPF 03/24/19 01:40 Miscellaneous Test Flexitest 1 03/25/19 05:55 Active Medications - Current Medications Current Medications: Generic Name Dose Route Start Last Admin Trade Name Freq PRN Reason Stop Dose Admin Acetaminophen 650 mg 03/23/19 22:46 03/29/19 10:24 Tylenol PO 650 mg Q4H PRN Administration Pain MILD(1-3)/Fever >100.5/AKERS Arformoterol Tartrate 15 mcg 03/29/19 20:00 03/31/19 09:37 Brovana Nebu IH 15 mcg Q12HRT LEA Administration Budesonide 0.5 mg 03/29/19 20:00 03/31/19 09:37 Pulmicort IH 0.5 mg Q12HRT LEA Administration Cholecalciferol 2,000 unit 03/30/19 10:00 03/31/19 09:28 Vitamin D3 PO 2,000 unit QDAY LEA Administration Escitalopram Oxalate 20 mg 03/29/19 14:00 03/31/19 09:28 Lexapro PO 20 mg DAILY LEA Administration Gabapentin 300 mg 03/29/19 14:00 03/31/19 14:00 Gabapentin PO Not Given TID LEA Hydralazine HCl 10 mg 03/24/19 21:26 03/25/19 07:35 Apresoline IV 10 mg Q6HR PRN Administration Blood Pressure Hydromorphone HCl 1 mg 03/24/19 13:21 03/25/19 14:40 Dilaudid IV 1 mg Q4H PRN Administration Pain , Severe (7-10) Insulin Human Regular 0 units 03/29/19 16:30 03/31/19 12:55 Humulin R SUB-Q 1 units ACHS LEA Administration Protocol Ondansetron HCl 4 mg 03/27/19 23:51 03/28/19 18:15 Zofran IV 4 mg Q6H PRN Administration Nausea And Vomiting Pantoprazole Sodium 40 mg 03/25/19 10:00 03/31/19 09:28 Protonix PO 40 mg QDAY LEA Administration Pravastatin Sodium 40 mg 03/29/19 22:00 03/30/19 22:13 Pravachol PO 40 mg QHS LEA Administration Sodium Chloride 10 ml 03/24/19 10:00 03/31/19 09:28 Sodium Chloride Flush Syringe 10 Ml IV 10 ml BID LEA Administration Sodium Chloride 10 ml 03/23/19 22:46 Sodium Chloride Flush Syringe 10 Ml IV PRN PRN LINE FLUSH Trazodone HCl 50 mg 03/24/19 23:00 03/30/19 22:13 Desyrel PO 50 mg QHS LEA Administration Nutrition/Malnutrition Assess - Dietary Evaluation Nutrition/Malnutrition Findings: Nutrition Notes Start: 03/24/19 09:23 Freq: Status: Active Protocol: Document 03/30/19 18:00 RM (Rec: 03/30/19 18:06 RM [id number]) Nutrition Notes Initial or Follow up Reassessment Current Diagnosis Diabetes,Hypertension, Hyperlipidemia Other Pertinent Diagnosis Acute retro peritoneal hemorrhage, Hypothyroidism Current Diet Full liquid Labs/Tests Reviewed Pertinent Medications Nicolas Height 5 ft 4 in Weight 85.5 kg [place] Body Weight (kg) 54.54 BMI 32.3 Subjective/Other Information Hemorrhagic pancreatitis ruled out per progres note 03/30/19 and replaced with retro peritonal hemorrhage. NPO after midnight in place earlier today. Full liquid diet ordered later today. Pt and pt relative in room at time of visit. Pt relative stated that MD recently cleared pt for solid diet. Noted solid dinner at bedside w/most eaten and full liquid dinner w/soup eaten. Pt denied nausea. Burn Absent Trauma Absent Minimum of two criteria No physical signs of malnutrition #2 Nutrition Diagnosis Inadequate oral intake Diagnosis Progress(for reassessment Continues documentation) Is patient on ventilator? No Is Patient Ambulatory and/or Out of Bed Yes REE-([facility]-ambulatory/OOB) [ 1794.000 [id number]] Kcal/Kg value to use for calculation 17 Approximate Energy Requirements Using 1454 kcal/Kg Calculation Used for Recommendations Kcal/kg Additional Notes Protein: 72-86g/kg (1g-1.2g/kg 70.1 AdjBW) Fluid: 1mL/kcal Nutrition Intervention Change Diet Order: Consistent CHO Goal #1 Meet at least 75% of energy and protein needs via oral intake Anticipated Discharge Needs: Consistent carb diet Follow-Up By: 04/01/19 Additional Comments Follow for stable intakes, N/V
--- NOTE | 2019-03-31 19:07 | Discharge Summary ---
Providers - Providers Date of Admission: 03/23/19 22:47 Date of discharge: 03/31/19 Attending physician: HEATHER CHAVIRA 03/23/19 22:46 Consult to Physician [CONS] Routine Comment: Carrie Consulting Provider: NATTY BLAIR Physician Instructions: Consult called to dr. Blair Reason For Exam: pancreatitis 03/24/19 08:40 Physical Therapy Evaluation and Treat [CONS] Routine Comment: Reason For Exam: Weakness 03/25/19 14:53 Consult to Physician [CONS] Routine Comment: called office/ maxi Consulting Provider: SANDRA PHAN Physician Instructions: Reason For Exam: gallstone pancreatitis Primary care physician: [facility], MD Hospitalization Reason for admission: Acute hemorrhagic pancreatitis Condition: Stable Pertinent studies: CT abdomen and pelvis 03/26/19 1. Markedly stable hyperattenuating fluid in the retroperitoneum adjacent to the pancreatic head and second and third parts of the duodenum. There is no pancreatic necrosis or fluid collection. Infact, the pancreas appears largely normal. Although this could indicate hemorrhagic pancreatitis, other sources of retroperitoneal hemorrhage including a venous hemorrhage should be considered. There is no appreciable arterial extravasation. The hemorrhage has not increased in size from the prior study. 2. Increasing small bilateral pleural effusions. Procedures: 1. Ultrasound guided access of the right common femoral artery 2. Angiography of the right lower extremity 3. Selection of the SMA with angiography 4. Selection of the celiac artery with angiography 5. Selection of the splenic artery with angiography 6. Selection of the inferior pancreaticoduodenal artery, posterior branch, with angiography 7. Selection of the inferior pancreaticoduodenal artery, anterior branch, with angiography 8. Coil embolization with a 6 mm x 20 mm interlock and 5 mm x 15 mm interlock of the mid portion of the anterior branch of the pancreaticoduodenal artery 9. Closure of the right common femoral artery with a 6 Fr proglide Hospital course: Reason for admission: This is a 64 yo female with pmh of HTN, DM2, anxiety, and kidney stones who presented to the ED with 3 weeks h/o abdominal pain with asso N/V. CT abdomen /pelvis done showed hemorrhagic pancreatitis. Repeated CT abd/pelvis for f/u showed retroperitoneum hematoma. Vascular surgery was then consulted and he recommended repeat CTA abd/pelvis which showed extravagation of contrast. She later underwent angiogram with coiling of mid portion of the anterior branch of the pancreaticoduodenal artery. She was found to have left gastric artery aneurysm. Plan was then made to transfer the patient to [facility] for further tx. Final discharge diagnosis/Hospital course: /Acute retroperitoneal hemorrhage Severe celiac artery stenosis with poststenotic dilatation/mild aneurysmal c hange, Irregular aneurysmal fusiform dilatation of the left gastric artery which is approximately 5-6 mm over a 1-2 cm length. - Vascular recommended to transfer the patient to [place] - accepted by Dr Montilla /Acute hemorrhagic pancreatitis, ruled out Initial CT findings suggestive of hemorrhagic pancreatitis of pancreatic head and small gallstones, but repeat CT scan showed patient pancreas appeared to be normal but has retroperitoneal hemorrhage /SIRS due to non-infectious cause with organ dysfunction (retroperitoneal hemorrhage) Initially treated with IV fluid and empiric IV antibiotics Blood culture were negative /Abdominal pain Probably secondary to the retroperitoneal hemorrhage. /Obesity with BMI of 32.4 lifestyle modification recommendation /Possible UTI, but urine cx grew normal normal duke /DM type 2, stable /Hyperkalemia s/p give kayexalate, insulin/d50, calcium gluconate, resolved /Hypokalemia Repleted and resolved Hypernatremia Disposition: patient was transferred to [facility] Dis[id number] IP Time spent for discharge: 40 minutes Core Measure Documentation - Palliative Care Palliative Care/ Comfort Measures: Not Applicable - Core Measures Any of the following diagnoses?: none Exam - Constitutional Vitals: Temp Pulse Resp BP Pulse Ox 98.6 F 102 H 18 144/88 95 03/31/19 13:54 03/31/19 13:54 03/31/19 13:54 03/31/19 13:54 03/31/19 13:54 General appearance: Present: no acute distress, obese - EENT Eyes: Present: PERRL, EOM intact ENT: hearing intact, clear oral mucosa - Neck Neck: Present: supple, normal ROM - Respiratory Respiratory effort: normal Respiratory: bilateral: CTA - Cardiovascular Rhythm: regular Heart Sounds: Present: S1 & S2. Absent: rub, click - Extremities Extremities: pulses symmetrical, No edema - Abdominal General gastrointestinal: Present: soft, non-tender, non-distended, normal bowel sounds - Integumentary Integumentary: Present: clear, warm, dry - Musculoskeletal Musculoskeletal: gait normal, strength equal bilaterally - Psychiatric Psychiatric: appropriate mood/affect, intact judgment & insight - Neurologic Neurologic: CNII-XII intact, moves all extremities Plan [facility] - 3-5 Days
== END 2019-03-31 17:45 | disposition short-term general hospital (02) | DRG 270 ==
LOC: ED 16:09 → 2B-ACE 22:47
PROVIDERS: ADMIT Internal Medicine Geriatric Medicine; ATTEND Internal Medicine
PROC: 04L53DZ Occlusion of Superior Mesenteric Artery with Intraluminal Device, Percutaneous Approach (ICD-10-PCS; principal; 2019-03-30)
PROC: B412YZZ Fluoroscopy of Hepatic Artery using Other Contrast (ICD-10-PCS; 2019-03-30)
PROC: B414YZZ Fluoroscopy of Superior Mesenteric Artery using Other Contrast (ICD-10-PCS; 2019-03-30)
PROC: B413YZZ Fluoroscopy of Splenic Arteries using Other Contrast (ICD-10-PCS; 2019-03-30)
PROC: B41FYZZ Fluoroscopy of Right Lower Extremity Arteries using Other Contrast (ICD-10-PCS; 2019-03-30)
DX: R58 Hemorrhage, not elsewhere classified (principal); R65.11 Systemic inflammatory response syndrome (SIRS) of non-infectious origin with acute organ dysfunction; I69.351 Hemiplegia and hemiparesis following cerebral infarction affecting right dominant side; E87.0 Hyperosmolality and hypernatremia; N39.0 Urinary tract infection, site not specified; J45.909 Unspecified asthma, uncomplicated; K80.20 Calculus of gallbladder without cholecystitis without obstruction; F41.9 Anxiety disorder, unspecified; E87.5 Hyperkalemia; E87.6 Hypokalemia; K21.9 Gastro-esophageal reflux disease without esophagitis; E66.9 Obesity, unspecified; E03.9 Hypothyroidism, unspecified; I72.8 Aneurysm of other specified arteries; E11.9 Type 2 diabetes mellitus without complications; I10 Essential (primary) hypertension; Z90.710 Acquired absence of both cervix and uterus; Z82.49 Family history of ischemic heart disease and other diseases of the circulatory system; Z83.3 Family history of diabetes mellitus; Z80.3 Family history of malignant neoplasm of breast; Z88.1 Allergy status to other antibiotic agents; Z88.8 Allergy status to other drugs, medicaments and biological substances; Z79.899 Other long term (current) drug therapy; Z79.84 Long term (current) use of oral hypoglycemic drugs; Z87.442 Personal history of urinary calculi; Z79.82 Long term (current) use of aspirin; Z68.32 Body mass index [BMI] 32.0-32.9, adult; Z71.3 Dietary counseling and surveillance
CPT/HCPCS: 36245; 36415; 37242; 71045; 74174; 74177; 75726; 76705; 76937; 80048; 80053; 81001; 82140; 82962; 83690; 84132; 84478; 85014; 85018; 85025; 85027; 85610; 85730; 86140; 87040; 87086; 94640; G0378; A4649; A9270-GY; C1760; C1769; C1887; J0360; J0690; J1170; J1644; J1815; J1956; J2250; J2270; J2405; J3010; J3480; J7030; J7040; Q9967

== ENCOUNTER 2019-05-18 10:42 | Outpatient (CLI) | payer MEDICARE ==
--- NOTE | 2019-05-18 13:06 | Mammography Report ---
DIGITAL SCREENING MAMMOGRAM WITH CAD, 05/18/2019 INDICATION: Routine screening mammography. TECHNIQUE: Digital bilateral 2D mammography was obtained in the craniocaudal and mediolateral obliq ue projections. This examination was interpreted with the benefit of Computer-Aided Detection analysi s. COMPARISON: 01/24/2017 FINDINGS: Breast Density: The breasts are almost entirely fatty. There is no evidence of dominant mass, suspicious calcifications or architectural distortion in eithe r breast. IMPRESSION: No mammographic evidence of malignancy. Follow up recommendation: Routine yearly BI-RADS Category 1: Negative. A "normal" or negative report should not discourage follow up or biopsy of a clinically significant f inding. A written summary of these findings will be mailed to the patient. The patient will be entered into a mammography reporting system which will generate a reminder letter for the patient's next appointmen t at the appropriate interval. The [employer] recommends yearly mammograms starting at age 40 and continuing as l berenice as a woman is in good health. Breast MRI is recommended for women with an approximate 20-25% or greater lifetime risk of breast cancer, including women with a strong family history of breast or ova laura cancer or who have been treated for Hodgkin's disease. Signer Name: Moose Sandoval MD Signed: 05/18/2019 1:02 PM Workstation Name: [id number]
== END 2019-05-18 10:43 | disposition home or self-care (01) ==
LOC: MAMMO 10:42
PROVIDERS: ATTEND Family Medicine
DX: Z12.31 Encounter for screening mammogram for malignant neoplasm of breast (principal)
CPT/HCPCS: 77067

== ENCOUNTER 2020-06-05 18:33 | Emergency (ER) | payer MEDICARE ==
[2020-06-05] MEDS ORDERED: BACITRACIN ZINC OINT 28.4 GM TP ONE (19:46)
--- NOTE | 2020-06-05 19:46 | Event Note ---
ED Screening Note Date of service: 06/05/20 Time: 19:42 ED Screening Note: 65-year-old -Italian female presents to the emergency room for a fall. It was reported that patient fell on her face. It was reported that patient has been down for over an hour. It was reported that patient tripped had no symptoms prior to the fall. Patient denies any loss of consciousness. This initial assessment/diagnostic orders/clinical plan/treatment(s) is/are subject to change based on patients health status, clinical progression and re- assessment by fellow clinical providers in the ED. Further treatment and workup at subsequent clinical providers discretion. Patient/guardian urged not to elope from the ED as their condition may be serious if not clinically assessed and managed. Initial orders include:
[2020-06-05 20:00] LABS: Hematocrit 41.5 % (30.3-42.9); Hemoglobin 13.1 gm/dl (10.1-14.3); Mean Corpuscular HGB Conc 32 % (30-34); Mean Corpuscular Volume 83 fl (79-97); Platelet Count 357 K/mm3 (140-440); Red Blood Count 4.98 M/mm3 (3.65-5.03); Red Cell Distribution Width 15.9 % (13.2-15.2)
--- NOTE | 2020-06-05 20:54 | XRay Report ---
. RIGHT HAND 3 VIEW(S) INDICATION / CLINICAL INFORMATION: fall hand pain COMPARISON: None available. FINDINGS: No acute fracture or malalignment. There is mild diffuse osteopenia. Degenerative changes are present at the second and third MCP joints. Soft tissues are unremarkable. IMPRESSION: No acute osseous findings of the right hand. Signer Name: Jigar Amos MD Signed: 06/05/2020 8:49 PM Workstation Name: [id number]
--- NOTE | 2020-06-05 20:55 | XRay Report ---
XR knee BILAT 1-2V INDICATION / CLINICAL INFORMATION: fall COMPARISON: None available. FINDINGS: There are osteoarthritic changes of both knees. No acute fracture or malalignment. No joint capsular distention. Soft tissues are unremarkable. IMPRESSION: No acute osseous findings in the knees. Signer Name: Jigar Amos MD Signed: 06/05/2020 8:51 PM Workstation Name: [id number]
[2020-06-05] MEDS ORDERED: fentaNYL 100 MCG/2 ML INJ IV ONE (21:55)
[2020-06-05] MEDS ORDERED: ONDANSETRON 4 MG/2 ML INJ IM ONE (21:55)
[2020-06-05] MEDS ORDERED: DIPHtheria,PERTUSSIS(ACELL),TETANUS VACCINE/PF 0.5 ML VIAL IM ONE (21:59)
--- NOTE | 2020-06-05 22:02 | Emergency Department Report ---
HPI - General Chief Complaint: Fall Time Seen by Provider: 06/05/20 21:42 - HPI HPI: Room 39 The patient is a 65-year-old female present with a chief complaint of pain after fall. The patient states this evening while dragging a trash bag she tripped on some gravel and fell injuring her right hand and face. Patient states she is uncertain if she lost consciousness. The patient states after the initial fall she could not get up secondary to pain in her right hand nothing to grab onto. Patient states she laid on the ground for a while and eventually got herself up came to the house and called family. The patient states the only pain she has n ow is a headache and gives it a score of 8-9/10. Patient is uncertain last time she received a tetanus shot ED Past Medical Hx - Past Medical History Previous Medical History?: Yes Hx Hypertension: Yes Hx CVA: Yes (right weakness) Hx Diabetes: Yes Hx GERD: Yes Hx Sickle Cell Disease: (SICKLE CELL TRAIT ONLY) Hx Arthritis: Yes Hx Kidney Stones: Yes Hx Asthma: Yes (MILD/LAST TIME INHALER USED >25 YRS) Additional medical history: Diverticulitis, Hyperthyroid. osteoprosis - Surgical History Past Surgical History?: Yes Hx Cholecystectomy: Yes Hx Breast Surgery: Yes (BILATERAL BREAST REDUCTION) Additional Surgical History: Hysterectomy, Lasic procedure on eyes. . SURGERY FOR ENDOMETRIOSIS. CATARACT REMOVED BOTH EYES. Bunionectomy. left knee. Left knee surgery 2. LEFT ANKLE SURGERY X 2 - Family History Family history: no significant - Social History Smoking Status: Never Smoker Substance Use Type: None (Denies illicit drug use), Alcohol (Occasion) - Medications Home Medications: Home Medications Medication Instructions Recorded Confirmed Last Taken Type Gabapentin 300 mg PO TID 09/22/14 07/07/19 07/05/19 History Levocetirizine Dihydrochloride 5 mg PO DAILY 09/22/14 07/07/19 07/05/19 History [Xyzal] Pantoprazole [Protonix TAB] 40 mg PO QDAY 09/22/14 07/07/19 07/05/19 History Pravastatin [Pravachol] 40 mg PO QHS 09/22/14 07/07/19 07/05/19 History Verapamil ER [Calan SR] 240 mg PO BIDWM 09/22/14 07/07/19 07/05/19 History Ondansetron [Zofran ODT TAB] 8 mg PO Q8HR #20 tab.rapdis 02/08/19 07/07/19 Unknown Rx Arginine [l-Arginine] 500 mg PO BID 03/24/19 07/07/19 07/05/19 History Azelastine/Fluticasone [Dymista 1 gm NS BID 03/24/19 07/07/19 Unknown History Nasal [place]] Cholecalciferol (Vitamin D3) 2,000 unit PO QDAY 03/24/19 07/07/19 Unknown History [Vitamin D3 2,000 UNIT CAP] Clopidogrel [Plavix] 75 mg PO QDAY 03/24/19 07/07/19 07/05/19 History Escitalopram [Lexapro] 20 mg PO DAILY MDD 1 1/2 03/24/19 07/07/19 07/05/19 History Fluticasone/Salmeterol [Advair 1 puff IH BID 03/24/19 07/07/19 Unknown History Diskus 250-50 mcg] Glucosam/Ander-Msm1/C/Neftali/Bosw 1 each PO BID 03/24/19 07/07/19 Unknown History [Osteo Bi-Flex Caplet] Loratadine 10 mg PO QDAY 03/24/19 07/07/19 Unknown History Prednisolone Acetate/Pf 5 ml OU BID 03/24/19 07/07/19 07/05/19 History [Prednisolone Acet 1% Eye Drop] clonazePAM [clonazePAM Rapdis] 0.5 mg PO QDAY 03/24/19 07/07/19 07/05/19 History metFORMIN [Glucophage] 500 mg PO TID 03/24/19 07/07/19 07/05/19 History polyethylene glycoL 3350 [Miralax 17 gm PO QDAY 03/24/19 07/07/19 Unknown History 3350] traZODone [Desyrel] 50 mg PO QHS 03/24/19 07/07/19 07/05/19 History Advair Diskus 250-50 mcg 07/06/19 Unknown History Arginine [l-Arginine] 500 mg PO BID 07/06/19 07/07/19 07/05/19 History Loratadine [Allergy Relief] 10 mg PO QDAY 07/06/19 07/07/19 07/05/19 History Osteo Bi-Flex Caplet INHALATION QDAY 07/06/19 07/05/19 History l-Alanine 07/06/19 Unknown History levoFLOXacin [Levaquin TAB] 500 mg PO QDAY #4 tablet 07/09/19 Unknown Rx Cyclobenzaprine [Flexeril] 10 mg PO TID PRN #10 tablet 06/06/20 Unknown Rx HYDROcodone/APAP 5-325 [Pep 1 - 2 each PO Q6HR PRN #10 tablet 06/06/20 Unknown Rx 5/325] Ibuprofen [Motrin 800 MG tab] 800 mg PO Q8HR PRN #20 tablet 06/06/20 Unknown Rx ED Review of Systems ROS: Stated complaint: CHEST PAIN/MELCHOR KNEE PAIN/HIP/LIP INJURY Other details as noted in HPI Constitutional: no symptoms reported Eyes: denies: eye pain ENT: denies: throat pain Respiratory: no symptoms reported Cardiovascular: denies: chest pain Endocrine: no symptoms reported Gastrointestinal: denies: abdominal pain Genitourinary: denies: dysuria Musculoskeletal: back pain, myalgia Skin: other (Lip abrasion) Neurological: headache Physical Exam - Physical Exam Vital Signs: Vital Signs 06/05/20 19:32 Temperature 98.5 F Pulse Rate 91 H Respiratory 17 Rate Blood Pressure 145/89 O2 Sat by Pulse 96 Oximetry Physical Exam: GENERAL: The patient is well-developed well-nourished female lying on stretcher not appearing to be in acute distress. [] HEENT: Normocephalic. Abrasion to upper lip. Extraocular motions are intact. Patient has moist mucous membranes. NECK: Supple. No axial tenderness to palpation CHEST/LUNGS: Clear to auscultation. There is no respiratory distress noted. HEART/CARDIOVASCULAR: Regular. There is no tachycardia. There is no gallop rub or murmur. ABDOMEN: Abdomen is soft, nontender. Patient has normal bowel sounds. There is no abdominal distention. SKIN: There is no rash. Abrasion to upper lip. Abrasions to right knee. There is no diaphoresis. NEURO: The patient is awake, alert, and oriented. The patient is cooperative. The patient has no focal neurologic deficits. The patient has normal speech MUSCULOSKELETAL: There is no tenderness to palpation of bilateral lower e xtremities or bilateral upper extremities excluding bilateral hands. There is no snuffbox tenderness bilaterally. ED Course Vital Signs 06/05/20 19:32 Temperature 98.5 F Pulse Rate 91 H Respiratory 17 Rate Blood Pressure 145/89 O2 Sat by Pulse 96 Oximetry ED Medical Decision Making - Lab Data Result diagrams: 06/05/20 19:47 - Radiology Data Radiology results: report reviewed (Thoracic spine x-ray, bilateral knee x-ray, right hand x-ray, left hand x-ray, CT head, CT cervical spine), image reviewed (Thoracic spine x-ray, bilateral knee x-ray, right hand x-ray, left hand x-ray, CT head, CT cervical spine) interpreted by me: Thoracic spine x-ray-no acute fracture, no dislocation, no foreign body seen Left hand x-ray-no acute fracture Right hand x-ray-no acute fracture Findings [address] [address] XRay Report Signed Patient: LUIS ELAM MR#: [id number] : 1955 Acct:[id number] Age/Sex: 65 / F ADM Date: 06/05/20 Loc: ED Attending Dr: Ordering Physician: HAYES LEWIS MD Date of Service: 06/05/20 Procedure(s): XR spine thoracic 3V Accession Number(s): [id number] cc: HAYES LEWIS MD Fluoro Time In Minutes: Thoracic spine 3 views Indication: Pain after fall Findings: There is no fracture or other acute radiographic abnormality of the thoracic spine. There is mild scoliotic-like curvature. Pedicles appear intact. Signer Name: Hiram Fenton MD Signed: 06/05/2020 11:09 PM Workstation Name: [id number] Transcribed By: SS Dictated By: Hiram Fenton MD Electronically Authe nticated By: Hiram Fenton MD Signed Date/Time: 06/05/202308 DD/ 07 TD/TT: Findings [address] [address] XRay Report Signed Patient: LUIS ELAM MR#: [id number] : 1955 Acct:[id number] Age/Sex: 65 / F ADM Date: 06/05/20 Loc: ED Attending Dr: Ordering Physician: HAYES LEWIS MD Date of Service: 06/05/20 Procedure(s): XR spine thoracic 3V Accession Number(s): [id number] cc: HAYES LEWIS MD Fluoro Time In Minutes: Thoracic spine 3 views Indication: Pain after fall Findings: There is no fracture or other acute radiographic abnormality of the thoracic spine. There is mild scoliotic-like curvature. Pedicles appear intact. Signer Name: Hiram Fenton MD Signed: 06/05/2020 11:09 PM Workstation Name: [id number] Transcribed By: Dictated By: Hiram Fenton MD Electronically Authenticated By: Hiram Fenton MD Signed Date/Time: 06/05/202308 DD/ 07 TD/TT: Findings [facility] [address] [place] [address] XRay Report Signed Patient: LUIS ELAM MR#: [id number] : 1955 Acct:[id number] Age/Sex: 65 / F ADM Date: 06/05/20 Loc: ED Attending Dr: Ordering Physician: SADIA MENENDEZ Date of Service: 06/05/20 Procedure(s): XR hand 2V RT Accession Number(s): [id number] cc: SADIA MENENDEZ Fluoro Time In Minutes: . RIGHT HAND 3 VIEW(S) INDICATION / CLINICAL INFORMATION: fall hand pain COMPARISON: None available. FINDINGS: No acute fracture or malalignment. There is mild diffuse osteopenia. Degenerative changes are present at the second and third MCP joints. Soft tissues are unremarkable. IMPRESSION: No acute osseous findings of the right hand. Signer Name: Willy Amos MD Signed: 06/05/2020 8:49 PM Workstation Name: [id number] Transcribed By: Dictated By: WILLY AMOS MD Electronically Authenticated By: WILLY AMOS MD Signed Date/Time: 06/05/202048 DD/ 47 TD/TT: \XR knee BILAT 1-2V INDICATION / CLINICAL INFORMATION: fall COMPARISON: None available. FINDINGS: There are osteoarthritic changes of both knees. No acute fracture or malalignment. No joint capsular distention. Soft tissues are unremarkable. IMPRESSION: No acute osseous findings in the knees. Signer Name: Willy Amos MD Signed: 06/05/2020 7:51 PM Workstation Name: [id number] CT HEAD WITHOUT CONTRAST INDICATION / CLINICAL INFORMATION: Fall. TECHNIQUE: All CT scans at this location are performed using CT dose reduction for ALARA by means of automated exposure control. COMPARISON: CT scan dated 07/06/2019 FINDINGS: HEMORRHAGE: None. EXTRA-AXIAL SPACES: Normal in size and morphology for the patient's age. Small Right frontal meningioma is unchanged. VENTRICULAR SYSTEM: Normal in size and morphology for the patient's age. CEREBRAL PARENCHYMA: No acute abnormality. No acute territorial infarct. Encephalomalacia in the left frontal lobe appears unchanged. MIDLINE SHIFT / HERNIATION: None. CEREBELLUM / BRAINSTEM: No significant abnormality. ORBITS: Normal as visualize d. SOFT TISSUES: No significant abnormality. SKULL: No significant abnormality. PARANASAL SINUSES / MASTOID AIR CELLS: Normal as visualized. ADDITIONAL FINDINGS: None. IMPRESSION: 1. No acute intracranial abnormality. 2. Small right frontal meningioma is unchanged. 3. Encephalomalacia in the left frontal lobe is unchanged. Signer Name: Hiram Fenton MD Signed: 06/05/2020 10:59 PM Workstation Name: [id number] CT CERVICAL SPINE WITHOUT CONTRAST INDICATION / CLINICAL INFORMATION: Fall. TECHNIQUE: Axial CT images were obtained through the cervical spine. Sagittal and coronal reformatted images were produced. All CT scans at this location are performed using CT dose reduction for ALARA by means of automated exposure control. COMPARISON: None available. FINDINGS: VERTEBRAE: No significant abnormality. ALIGNMENT: No significant abnormality. DISC SPACES: There is mild discogenic degenerative change at C3-4, C4-5 and C5-6. FACET JOINTS: There is facet degenerative change at C4-5, C5-6 and C6-7. CRANIOCERVICAL JUNCTION:No significant abnormality. SPINAL CANAL: No significant abnormality. PARASPINAL SOFT TISSUES: No significant abnormality. ADDITIONAL FINDINGS: None. LUNG APICES: No significant abnormality of visualized lungs. IMPRESSION: 1. Degenerative changes are noted. No fracture or subluxation is seen. Signer Name: Hiram Fenton MD Signed: 06/05/2020 10:55 PM Workstation Name: [email or web address] - Differential Diagnosis Close head injury, intracranial hemorrhage Critical care attestation.: If time is entered above; I have spent that time in minutes in the direct care of this critically ill patient, excluding procedure time. ED Disposition Clinical Impression: Closed head injury, Contusion, lip, Contusion of right hand, Contusion of left hand, Thoracic myofascial strain, Abrasion of right knee Disposition: - TO HOME OR SELFCARE Is pt being admited?: No Does the pt Need Aspirin: No Condition: Stable Additional Instructions: Return to the emergency department should you develop worsening symptoms, inability to tolerate food or liquids, high fever or any other concerns Prescriptions: Cyclobenzaprine [Flexeril] 10 mg PO TID PRN #10 tablet PRN Reason: Muscle Spasm Ibuprofen [Motrin 800 MG tab] 800 mg PO Q8HR PRN #20 tablet PRN Reason: Pain, Moderate (4-6) HYDROcodone/APAP 5-325 [Pep 5/325] 1 - 2 each PO Q6HR PRN #10 tablet PRN Reason: Pain Referrals: EDITH GIVENS MD [Staff Physician] - 3-5 Days Time of Disposition: 00:10
[2020-06-05] MEDS ORDERED: fentaNYL 100 MCG/2 ML INJ IM ONE (22:20)
--- NOTE | 2020-06-05 23:12 | XRay Report ---
LEFT HAND 3 VIEWS INDICATION / CLINICAL INFORMATION: Pain after fall COMPARISON: None available. FINDINGS: BONES / JOINT(S): No acute fracture or subluxation. No significant arthritis. SOFT TISSUES: No significant abnormality. ADDITIONAL FINDINGS: There is subjective osteopenia. Signer Name: Hiram Fenton MD Signed: 06/05/2020 11:08 PM Workstation Name: [id number]
--- NOTE | 2020-06-05 23:13 | XRay Report ---
Thoracic spine 3 views Indication: Pain after fall Findings: There is no fracture or other acute radiographic abnormality of the thoracic spine. There is mild sco liotic-like curvature. Pedicles appear intact. Signer Name: Hiram Fenton MD Signed: 06/05/2020 11:09 PM Workstation Name: [id number]
--- NOTE | 2020-06-05 23:59 | Cat Scan Report ---
CT CERVICAL SPINE WITHOUT CONTRAST INDICATION / CLINICAL INFORMATION: Fall. TECHNIQUE: Axial CT images were obtained through the cervical spine. Sagittal and coronal reformatted images were produced. All CT scans at this location are performed using CT dose reduction for ALARA by means of automated exposure control. COMPARISON: None available. FINDINGS: VERTEBRAE: No significant abnormality. ALIGNMENT: No significant abnormality. DISC SPACES: There is mild discogenic degenerative change at C3-4, C4-5 and C5-6. FACET JOINTS: There is facet degenerative change at C4-5, C5-6 and C6-7. CRANIOCERVICAL JUNCTION:No significant abnormality. SPINAL CANAL: No significant abnormality. PARASPINAL SOFT TISSUES: No significant abnormality. ADDITIONAL FINDINGS: None. LUNG APICES: No significant abnormality of visualized lungs. IMPRESSION: 1. Degenerative changes are noted. No fracture or subluxation is seen. Signer Name: Hiram Fenton MD Signed: 06/05/2020 11:55 PM Workstation Name: [id number]
--- NOTE | 2020-06-06 00:04 | Cat Scan Report ---
CT HEAD WITHOUT CONTRAST INDICATION / CLINICAL INFORMATION: Fall. TECHNIQUE: All CT scans at this location are performed using CT dose reduction for ALARA by means of automated exposure control. COMPARISON: CT scan dated 07/06/2019 FINDINGS: HEMORRHAGE: None. EXTRA-AXIAL SPACES: Normal in size and morphology for the patient's age. Small Right frontal meningio ma is unchanged. VENTRICULAR SYSTEM: Normal in size and morphology for the patient's age. CEREBRAL PARENCHYMA: No acute abnormality. No acute territorial infarct. Encephalomalacia in the left frontal lobe appears unchanged. MIDLINE SHIFT / HERNIATION: None. CEREBELLUM / BRAINSTEM: No significant abnormality. ORBITS: Normal as visualized. SOFT TISSUES: No significant abnormality. SKULL: No significant abnormality. PARANASAL SINUSES / MASTOID AIR CELLS: Normal as visualized. ADDITIONAL FINDINGS: None. IMPRESSION: 1. No acute intracranial abnormality. 2. Small right frontal meningioma is unchanged. 3. Encephalomalacia in the left frontal lobe is unchanged. Signer Name: Hiram Fenton MD Signed: 06/05/2020 11:59 PM Workstation Name: [id number]
[2020-06-06 00:42] VITALS: BP 127/77
== END 2020-06-06 00:43 | disposition home or self-care (01) ==
LOC: ED 18:33
DX: S09.90XA Unspecified injury of head, initial encounter (principal); S29.012A Strain of muscle and tendon of back wall of thorax, initial encounter; S80.211A Abrasion, right knee, initial encounter; S00.531A Contusion of lip, initial encounter; S60.222A Contusion of left hand, initial encounter; I10 Essential (primary) hypertension; E11.9 Type 2 diabetes mellitus without complications; K21.9 Gastro-esophageal reflux disease without esophagitis; M19.91 Primary osteoarthritis, unspecified site; J45.909 Unspecified asthma, uncomplicated; Z90.49 Acquired absence of other specified parts of digestive tract; Z98.890 Other specified postprocedural states; Z88.1 Allergy status to other antibiotic agents; Z91.040 Latex allergy status; W01.0XXA Fall on same level from slipping, tripping and stumbling without subsequent striking against object, initial encounter; Y93.89 Activity, other specified; Y92.89 Other specified places as the place of occurrence of the external cause; Y99.8 Other external cause status
CPT/HCPCS: 36415; 70450; 72072; 72125; 73120; 73130; 73560; 82550; 85027; 90471; 90715; 96372; 99284; J2405; J3010

== ENCOUNTER 2021-03-20 09:59 | Outpatient (CLI) | payer MEDICARE ==
--- NOTE | 2021-03-20 15:31 | Mammography Report ---
DIGITAL SCREENING MAMMOGRAM WITH CAD, 03/20/2021 CLINICAL INFORMATION / INDICATION: Routine screening mammography. SCREENING MAMMOGRAM TECHNIQUE: Digital bilateral 2D mammography was obtained in the craniocaudal and mediolateral obliqu e projections. This examination was interpreted with the benefit of Computer-Aided Detection analysis . COMPARISON: 10/25/2015 through 05/18/2019. FINDINGS: Breast Density: The breasts are almost entirely fatty. No dominant mass, suspicious calcifications, or architectural distortion in either breast. There are bilateral reduction changes. IMPRESSION: No mammographic evidence of malignancy. Follow up recommendation: Routine yearly BI-RADS Category 2: Benign. A "normal" or negative report should not discourage follow up or biopsy of a clinically significant f inding. A written summary of these findings will be mailed to the patient. The patient will be entered into a mammography reporting system which will generate a reminder letter for the patient's next appointmen t at the appropriate interval. The [employer] recommends yearly mammograms starting at age 40 and continuing as l berenice as a woman is in good health. Breast MRI is recommended for women with an approximate 20-25% or greater lifetime risk of breast cancer, including women with a strong family history of breast or ova laura cancer or who have been treated for Hodgkin's disease. Signer Name: Laron Kimbrough MD Signed: 03/20/2021 3:27 PM Workstation Name: [id number]
== END 2021-03-20 10:00 | disposition home or self-care (01) ==
LOC: MAMMO 09:59
PROVIDERS: ATTEND Family Medicine
DX: Z12.31 Encounter for screening mammogram for malignant neoplasm of breast (principal); N64.89 Other specified disorders of breast
CPT/HCPCS: 77067

== ENCOUNTER 2021-08-09 12:15 | Emergency (ER) | payer MEDICARE ==
[2021-08-09 12:29] VITALS: BP 144/90
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
--- NOTE | 2021-08-09 14:06 | XRay Report ---
CHEST 2 VIEWS INDICATION: pain. COMPARISON: 03/23/2019 FINDINGS: Support devices: None. Heart: Within normal limits. Lungs/pleura: There is poor inspiration. The lungs are generally clear with no evidence for pneumoni a, pleural effusion or pneumothorax. Additional findings: None. IMPRESSION: No acute findings. RIGHT ELBOW 3 VIEWS INDICATION: pain. COMPARISON: None. IMPRESSION: No acute osseous or soft tissue abnormality. No significant DJD. Signer Name: Jj Clarke Jr, MD Signed: 08/09/2021 2:02 PM Workstation Name: [id number]
[2021-08-09] MEDS ORDERED: ACETAMINOPHEN 500 MG TAB PO ONE (14:27)
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
--- NOTE | 2021-08-13 10:53 | Electrocardiograph Report ---
[facility] Test Date: 2021-08-09 Test Time: 12:46:23 Pat Name: LUIS ELAM Department: Room: Gender: F Resident Program Specialist: KWAME : [id number] Requested By: SERAFIN RAMÍREZ Order Number: [id number] Reading MD: Jeremias Velez Measurements Intervals [place]ney Rate: 88 P: 48 MO: 156 QRS: -49 QRSD: 88 T: 41 QT: 383 QTc: 464 Interpretive Statements Sinus rhythm Inferior infarct, old Anterior Q waves, possibly due to LVH No previous ECG available for comparison Electronically Signed On 08-13-2021 10:53:00 EDT by Jeremias Velez
== END 2021-08-09 15:00 | disposition home or self-care (01) ==
LOC: ED 12:15
DX: T14.8XXA Other injury of unspecified body region, initial encounter (principal); I10 Essential (primary) hypertension; E11.9 Type 2 diabetes mellitus without complications; K21.9 Gastro-esophageal reflux disease without esophagitis; M19.90 Unspecified osteoarthritis, unspecified site; N20.0 Calculus of kidney; J45.909 Unspecified asthma, uncomplicated; Z86.73 Personal history of transient ischemic attack (TIA), and cerebral infarction without residual deficits; Z90.49 Acquired absence of other specified parts of digestive tract; Z98.890 Other specified postprocedural states; Z79.899 Other long term (current) drug therapy; Z88.6 Allergy status to analgesic agent; Z88.1 Allergy status to other antibiotic agents; Z91.040 Latex allergy status; Y08.89XA Assault by other specified means, initial encounter; Y93.89 Activity, other specified; Y92.89 Other specified places as the place of occurrence of the external cause; Y99.8 Other external cause status
CPT/HCPCS: 71046; 93005; 99283; 99284